=== PATIENT | female | born 1960 | race Caucasian/White ===

== ENCOUNTER 2018-04-28 20:59 | Emergency (ER) | payer OTHER ==
[2018-04-28] MEDS ORDERED: METHYLPREDNISOLONE 125 MG INJ ONE (21:43)
[2018-04-28] MEDS ORDERED: IPRATROPIUM BROM 0.5MG/2.5ML ONE (21:43)
[2018-04-28] MEDS ORDERED: LEVALBUTEROL 1.25 MG/3 ML NEB ONE (21:43)
[2018-04-28 23:14] LABS: Absolute Lymphocytes (CBC) 0.7 K/uL (0.7-4.9); Absolute Monocytes 0.3 K/uL (0.1-1.3); Absolute Neutrophil 2.6 K/uL (1.8-8.0); Basophils % 0.4 % (0-1.3); Eosinophils % 0.7 % (0-4.4); Hematocrit 30.7 % (36.0-45.0); Lymphocytes % 18.1 % (15.3-44.8); MCH 29.7 pg (27.0-35.0); MPV 8.4 fL (7.6-11.3); Monocytes % 7.5 % (3.3-12.3); RBC Red Blood Cell Count 3.34 M/uL (3.86-4.86)
[2018-04-28 23:18] LABS: Protime INR 1.43
[2018-04-28 23:24] LABS: Urine Blood NEGATIVE (NEG); Urine Glucose NEGATIVE (NEG); Urine Protein NEGATIVE (NEG)
[2018-04-28 23:31] LABS: Blood Morphology Comment NOT SEEN (NOT SEEN); Platelet Estimate DECR; Urine White Blood Cell Casts OK
[2018-04-28] MEDS ORDERED: MEPERIDINE HCL 25 MG/0.5 ML ONE (23:36)
[2018-04-28 23:46] LABS: Magnesium 1.6 mg/dL (1.8-2.4)
[2018-04-28 23:48] LABS: Potassium 2.6 mmol/L (3.5-5.1)
--- NOTE | 2018-04-29 00:59 | EDPHYS ---
Physician Documentation [facility] Name: Yuly Briones Age: 57 yrs Sex: Female : 1960 Arrival Date: 04/28/2018 Time: 21:03 Bed 6 Private MD: ED Physician Melchor Ortiz HPI: 04/28 23:34 This 57 yrs old Female presents to ER via EMS with complaints of Shortness Of rn Breath. 23:34 The patient has shortness of breath at rest, with light activity. Onset: The rn symptoms/episode began/occurred today. Duration: The symptoms are continuous. Associated signs and symptoms: Pertinent positives: non-productive cough, fever, Pertinent negatives: hemoptysis. Severity of symptoms: At their worst the symptoms were moderate in the emergency department the symptoms are unchanged. The patient has experienced similar episodes in the past. Historical: - Allergies: 21:21 Ibuprofen; lp1 21:21 thorazine; lp1 21:21 Toradol; lp1 21:21 tramadol; lp1 - Home Meds: 21:21 acetaminophen-codeine 300-30 mg Oral tab 2 tabs every 4-6 hours [Active]; Advair Diskus lp1 250-50 mcg/dose Inhl dsdv 1 puff 2 times per day [Active]; aspirin 81 mg Oral chew 1 tab once daily [Active]; Bentyl 10 mg Oral cap 1 cap 3 times per day [Active]; Cymbalta 60 mg Oral cpDR 1 cap once daily [Active]; Klonopin 1 mg Oral tab 1 tab daily [Active]; lisinopril-hydrochlorothiazide 20-25 mg Oral tab 1 tab once daily [Active]; Nexium 40 mg Oral cpDR 1 cap 2 times per day [Active]; pravastatin 40 mg Oral tab 1 tab once daily [Active]; Premarin 1.25 mg Oral tab 1 tab once daily [Active]; promethazine 25 mg Oral tab 1 tab once daily [Active]; Seroquel 400 mg Oral tab 1 tab once daily [Active]; trazodone 50 mg Oral tab 1 tab 3 times per day [Active]; Wellbutrin 300 mg once daily Oral [Active]; Zanaflex 4 mg Oral cap 1 cap 3 times per day [Active]; - PMHx: 21:21 Asthma; COPD; Emphysema; Hyperlipidemia; Hypertension; lp1 - PSHx: 21:21 CABG; lp1 - Immunization history:: Adult Immunizations up to date. - Social history:: Smoking status: Patient/guardian denies using tobacco, the patient reports quitting approximately 1 years ago. - Ebola Screening: : No symptoms or risks identified at this time. - Family history:: not pertinent. - Hospitalizations: : No recent hospitalization is reported. ROS: 23:34 Constitutional: + fever, no chills Eyes: Negative for injury, pain, redness, and rn plasma center, Neck: Negative for injury, pain, and swelling, Cardiovascular: Negative for chest pain, palpitations, and edema, Respiratory: Negative for pleuritic chest pain, Abdomen/GI: Negative for abdominal pain, nausea, vomiting, diarrhea, and constipation, Back: + chronic back pain MS/Extremity: Negative for injury and deformity, Skin: Negative for injury, rash, and discoloration, Neuro: + generalized weakness Exam: 23:34 Constitutional: This is a well developed, well nourished patient who is awake, alert, rn + mild to moderate tachypnea Head/Face: Normocephalic, atraumatic. Eyes: Pupils equal round and reactive to light, extra-ocular motions intact. Lids and lashes normal. Conjunctiva and sclera are non-icteric and not injected. Cornea within normal limits. Periorbital areas with no swelling, redness, or edema. Neck: Trachea midline, no thyromegaly or masses palpated, and no cervical lymphadenopathy. Supple, full range of motion without nuchal rigidity, or vertebral point tenderness. No Meningismus. Cardiovascular: Regular rate and rhythm with a normal S1 and S2. No gallops, murmurs, or rubs. Normal PMI, no JVD. No pulse deficits. Respiratory: + mild to moderate tachypnea, faint exp wheezing, speaking full sentences Abdomen/GI: Soft, non-tender, with normal bowel sounds. No distension or tympany. No guarding or rebound. No evidence of tenderness throughout. MS/ Extremity: Pulses equal, no cyanosis. Neurovascular intact. Full, normal range of motion. Equal circumference. Neuro: Awake and alert, GCS 15, oriented to person, place, time, and situation. Cranial nerves II-XII grossly intact. Motor strength 5/5 in all extremities. Sensory grossly intact. Vital Signs: 21:00 Pulse Ox 89% on 4 lpm NC; lp1 21:17 BP 115 / 79; Pulse 76; Resp 22; Temp 99.1(O); Pulse Ox 99% on 50% Venturi mask; Weight lp1 63.96 kg; Height 4 ft. 11 in. (149.86 cm); 22:00 BP 110 / 63; Pulse 70; Resp 18; Pulse Ox 98% on 3 lpm NC; lp1 23:00 BP 123 / 72; Pulse 94; Resp 19; Pulse Ox 98% on 3 lpm NC; lp1 04/29 00:00 BP 108 / 65; Pulse 87; Resp 17; Pulse Ox 100% on 3 lpm NC; lp1 01:00 BP 110 / 61; Pulse 75; Resp 18; Pulse Ox 95% on 3 lpm NC; lp1 02:00 BP 100 / 55; Pulse 77; Resp 19; Pulse Ox 99% on 3 lpm NC; lp1 04/28 21:17 Body Mass Index 28.48 (63.96 kg, 149.86 cm) lp1 MDM: 04/28 21:03 Patient medically screened. rn 04/29 00:57 Differential diagnosis: Anxiety Reaction Bronchitis CHF exacerbation, Chronic rn Obstructive Pulmonary Disease Myocardial Infarction pneumonia, Pneumothorax pulmonary edema, reactive airway disease. Data reviewed: vital signs, nurses notes, lab test result(s), EKG, radiologic studies, plain films, and as a result, I will admit patient. Counseling: I had a detailed discussion with the patient and/or guardian regarding: the historical points, exam findings, and any diagnostic results supporting the discharge/admit diagnosis, lab results, radiology results, the need for further work-up and treatment in the hospital. Response to treatment: the patient's symptoms have markedly improved after treatment, and as a result, I will admit patient. ED course: Recommended admission/observation for sob, pt feels much better, states cannot stay, needs to go home, understands risks, will dc home with abx/steroids, has nebulizer at home.. 04/28 21:06 Order name: Blood Culture Adult (2) rn 04/28 21:06 Order name: BMP; Complete Time: 00:08 rn 04/28 21:06 Order name: CBC with Diff; Complete Time: 00:08 rn 04/28 21:06 Order name: Magnesium; Complete Time: 00:08 rn 04/28 21:06 Order name: NT PRO-BNP; Complete Time: 00:08 rn 04/28 21:06 Order name: PT-INR; Complete Time: 00:08 rn 04/28 21:06 Order name: XRAY CXR (1 view) rn 04/28 21:06 Order name: Ptt, Activated; Complete Time: 00:08 rn 04/28 21:06 Order name: Troponin (emerg Dept Use Only); Complete Time: 00:08 rn 04/28 22:50 Order name: Urine Dipstick--Ancillary (enter results); Complete Time: 00:08 ms 04/28 23:31 Order name: CBC Smear Scan; Complete Time: 00:08 EDMS 04/28 21:06 Order name: EKG; Complete Time: 21:06 rn 04/28 21:06 Order name: Cardiac monitoring; Complete Time: 22:05 rn 04/28 21:06 Order name: EKG - Nurse/Tech; Complete Time: 22:31 rn 04/28 21:06 Order name: IV Saline Lock; Complete Time: 23:38 rn 04/28 21:06 Order name: Labs collected and sent; Complete Time: 23:38 rn 04/28 21:06 Order name: O2 Per Protocol; Complete Time: 22:05 rn 04/28 21:06 Order name: O2 Sat Monitoring; Complete Time: 22:05 rn Administered Medications: 04/28 21:45 Drug: Xopenex (3) 1.25 mg Route: Inhalation; lp1 21:45 Drug: AtroVENT Aerosol 0.5 mg Route: Inhalation; lp1 23:30 Drug: SOLU-Medrol 125 mg Route: IVP; Site: left upper arm; lp1 04/29 01:00 Follow up: Response: No adverse reaction lp1 04/28 23:38 Drug: Demerol 25 mg Route: IVP; Site: left upper arm; lp1 04/29 00:33 Follow up: Response: Pain is decreased lp1 01:49 Drug: Zithromax 500 mg Route: PO; aa1 02:33 Follow up: Response: No adverse reaction lp1 01:50 Not Given (Other Intervention Used): Magnesium Sulfate 1 grams IVPB once over 1 hrs aa1 01:50 Not Given (Other Intervention Used): Potassium Chloride 20 mEq IV at calculated rate aa1 once; administer over 1-2 hours 01:51 Drug: Magnesium 400 mg Route: PO; aa1 02:33 Follow up: Response: No adverse reaction lp1 01:51 Drug: Potassium Chloride 40 mEq Route: PO; aa1 02:33 Follow up: Response: No adverse reaction lp1 Disposition: 04/29/18 00:59 Discharged to Home. Impression: Chronic obstructive pulmonary disease with (acute) exacerbation. - Condition is Stable. - Discharge Instructions: Chronic Obstructive Pulmonary Disease. - Prescriptions for Prednisone 20 mg Oral Tablet - take 3 tablet by ORAL route once daily for 5 days; 15 tablet. Zithromax Z- Michael 250 mg Oral Tablet - take 1 tablet by ORAL route as directed for 5 days Day 1 - take two (2) tablets one time. Day 2, 3, 4 , 5 take one (1) tablet once daily.; 6 tablet. - Medication Reconciliation Form, Thank You Letter, Antibiotic Education, Prescription Opioid Use form. - Follow up: Private Physician; When: As needed; Reason: Recheck today's complaints, Re-evaluation by your physician. - Problem is an acute exacerbation. - Symptoms have improved. Signatures: Dispatcher [employer] EDMS Clare Marr RN RN aa1 Melchor Ortiz MD MD rn Pena, Laura, RN RN lp1 Corrections: (The following items were deleted from the chart) 02:34 00:59 04/29/2018 00:59 Discharged to Home. Impression: Chronic obstructive pulmonary lp1 disease with (acute) exacerbation. Condition is Stable. Forms are Medication Reconciliation Form, Thank You Letter, Antibiotic Education, Prescription Opioid Use. Follow up: Private Physician; When: As needed; Reason: Recheck today's complaints, Re-evaluation by your physician. Problem is an acute exacerbation. Symptoms have improved. rn
--- NOTE | 2018-04-29 00:59 | ER ---
Nurse's Notes [facility] Name: Yuly Briones Age: 57 yrs Sex: Female : 1960 Arrival Date: 04/28/2018 Time: 21:03 Bed 6 Private MD: Diagnosis: Chronic obstructive pulmonary disease with (acute) exacerbation Presentation: 04/28 21:14 Presenting complaint: EMS states: Patient has been short of breath since this morning; lp1 Hx of COPD, states using home O2 3-4L as needed; Patient was 90% on 3L on arrival of EMS, Given A/A treatment with improvement of O2 to 99% on 4L NC. Transition of care: patient was not received from another setting of care. Onset of symptoms was April 28, 2018. Risk Assessment: Do you want to hurt yourself or someone else? Patient reports no desire to harm self or others. Initial Sepsis Screen: Does the patient meet any 2 criteria? No. Patient's initial sepsis screen is negative. Does the patient have a suspected source of infection? No. Patient's initial sepsis screen is negative. Care prior to arrival: Medication(s) given: Albuterol Neb x 1, Atrovent Neb x 1, Oxygen administered. via nasal cannula. 21:14 Method Of Arrival: EMS: [facility] lp1 21:14 Acuity: COSTA 3 lp1 Historical: - Allergies: 21:21 Ibuprofen; lp1 21:21 thorazine; lp1 21:21 Toradol; lp1 21:21 tramadol; lp1 - Home Meds: 21:21 acetaminophen-codeine 300-30 mg Oral tab 2 tabs every 4-6 hours [Active]; Advair Diskus lp1 250-50 mcg/dose Inhl dsdv 1 puff 2 times per day [Active]; aspirin 81 mg Oral chew 1 tab once daily [Active]; Bentyl 10 mg Oral cap 1 cap 3 times per day [Active]; Cymbalta 60 mg Oral cpDR 1 cap once daily [Active]; Klonopin 1 mg Oral tab 1 tab daily [Active]; lisinopril-hydrochlorothiazide 20-25 mg Oral tab 1 tab once daily [Active]; Nexium 40 mg Oral cpDR 1 cap 2 times per day [Active]; pravastatin 40 mg Oral tab 1 tab once daily [Active]; Premarin 1.25 mg Oral tab 1 tab once daily [Active]; promethazine 25 mg Oral tab 1 tab once daily [Active]; Seroquel 400 mg Oral tab 1 tab once daily [Active]; trazodone 50 mg Oral tab 1 tab 3 times per day [Active]; Wellbutrin 300 mg once daily Oral [Active]; Zanaflex 4 mg Oral cap 1 cap 3 times per day [Active]; - PMHx: 21:21 Asthma; COPD; Emphysema; Hyperlipidemia; Hypertension; lp1 - PSHx: 21:21 CABG; lp1 - Immunization history:: Adult Immunizations up to date. - Social history:: Smoking status: Patient/guardian denies using tobacco, the patient reports quitting approximately 1 years ago. - Ebola Screening: : No symptoms or risks identified at this time. - Family history:: not pertinent. - Hospitalizations: : No recent hospitalization is reported. Screenin:22 Abuse screen: Denies threats or abuse. Denies injuries from another. Nutritional lp1 screening: No deficits noted. Tuberculosis screening: No symptoms or risk factors identified. Fall Risk Total Bullard Fall Scale indicates High Risk Score (45 or more points). Fall prevention measures have been instituted. Side Rails Up X 2 As available patient and family educated on Fall Prevention Program and Strategies. Assessment: 21:15 Reassessment: [place] [facility] [place] 21:30 General: Appears uncomfortable, Behavior is anxious. Pain: Complains of pain in lp1 buttocks Pain currently is 8 out of 10 on a pain scale. Quality of pain is described as aching. Neuro: Level of Consciousness is awake, alert, obeys commands, Oriented to person, place, situation. Cardiovascular: Capillary refill < 3 seconds in bilateral fingers toes Patient's skin is warm and dry. Respiratory: Airway is patent Respiratory effort is even, labored, Respiratory pattern is regular, Breath sounds with wheezes bilaterally. GI: Abdomen is non-distended. : No signs and/or symptoms were reported regarding the genitourinary system. EENT: No signs and/or symptoms were reported regarding the EENT system. Derm: Skin is fragile, is thin, Skin is dry, Skin is normal, Multiple bruising noted to general body, patient states taking blood thinner. Musculoskeletal: Circulation, motion, and sensation intact. 22:15 Reassessment: Anuja Lee RN at bedside to attempt peripheral IV access. lp1 22:45 Reassessment: Dr. Ortiz at bedside to attempt IV access for patient. lp1 23:30 Reassessment: Patient complaint of pain to general body related to rheumatoid lp1 arthritis, Provider notified. 23:30 Respiratory: Respiratory effort is even, unlabored, Respiratory pattern is regular, the lp1 patient has mild shortness of breath. 04/29 00:30 Reassessment: Patient given sandwich and juice at this time per request. lp1 01:40 Reassessment: Patient appears in no apparent distress at this time. Patient is alert, aa1 oriented x 3, equal unlabored respirations, skin warm/dry/pink. Pt states the time it would take for the IV potassium and magnesium ordered is too long. States, "Oh god, I need to go! My girlfriend is coming to get me from [place] and she has to be at work at 6 in the morning." MD ok'd PO potassium and magnesium in place of IVPB. 02:30 Reassessment: Patient is alert, oriented x 3, equal unlabored respirations, skin lp1 warm/dry/pink. Patient states feeling better. Patient states symptoms have improved. Vital Signs: 04/28 21:00 Pulse Ox 89% on 4 lpm NC; lp1 21:17 BP 115 / 79; Pulse 76; Resp 22; Temp 99.1(O); Pulse Ox 99% on 50% Venturi mask; Weight lp1 63.96 kg; Height 4 ft. 11 in. (149.86 cm); 22:00 BP 110 / 63; Pulse 70; Resp 18; Pulse Ox 98% on 3 lpm NC; lp1 23:00 BP 123 / 72; Pulse 94; Resp 19; Pulse Ox 98% on 3 lpm NC; lp1 04/29 00:00 BP 108 / 65; Pulse 87; Resp 17; Pulse Ox 100% on 3 lpm NC; lp1 01:00 BP 110 / 61; Pulse 75; Resp 18; Pulse Ox 95% on 3 lpm NC; lp1 02:00 BP 100 / 55; Pulse 77; Resp 19; Pulse Ox 99% on 3 lpm NC; lp1 04/28 21:17 Body Mass Index 28.48 (63.96 kg, 149.86 cm) lp1 ED Course: 04/28 21:03 Patient arrived in ED. rn 21:03 Melchor Ortiz MD is Attending Physician. rn 21:13 Michela Lovett RN is Primary Nurse. lp1 21:17 Triage completed. lp1 21:17 Arm band placed on left wrist. lp1 21:22 Patient has correct armband on for positive identification. Placed in gown. Bed in low lp1 position. Call light in reach. Side rails up X2. property assessment monitor on. Pulse ox on. NIBP on. 22:26 Missed attempt(s): 22 gauge in right antecubital area. lp1 23:06 XRAY CXR (1 view) In Process Unspecified. EDMS 23:[address] Ortiz, Twin cath to left upper arm, blood collected. lp1 23:52 Notified ED physician of a critical lab result(s). potassium of 2.6 Dr Ortiz notified. bb 04/29 00:26 No provider procedures requiring assistance completed. lp1 01:55 IV discontinued, intact, bleeding controlled, No redness/swelling at site. Pressure aa1 dressing applied. Administered Medications: 04/28 21:45 Drug: Xopenex (3) 1.25 mg Route: Inhalation; lp1 21:45 Drug: AtroVENT Aerosol 0.5 mg Route: Inhalation; lp1 23:30 Drug: SOLU-Medrol 125 mg Route: IVP; Site: left upper arm; lp1 04/29 01:00 Follow up: Response: No adverse reaction lp1 04/28 23:38 Drug: Demerol 25 mg Route: IVP; Site: left upper arm; lp1 04/29 00:33 Follow up: Response: Pain is decreased lp1 01:49 Drug: Zithromax 500 mg Route: PO; aa1 02:33 Follow up: Response: No adverse reaction lp1 01:50 Not Given (Other Intervention Used): Magnesium Sulfate 1 grams IVPB once over 1 hrs aa1 01:50 Not Given (Other Intervention Used): Potassium Chloride 20 mEq IV at calculated rate aa1 once; administer over 1-2 hours 01:51 Drug: Magnesium 400 mg Route: PO; aa1 02:33 Follow up: Response: No adverse reaction lp1 01:51 Drug: Potassium Chloride 40 mEq Route: PO; aa1 02:33 Follow up: Response: No adverse reaction lp1 Outcome: 00:59 Discharge ordered by . rn 02:33 Discharged to home via wheelchair, with friend. lp1 02:33 Condition: good 02:33 Discharge instructions given to patient, Instructed on discharge instructions, follow up and referral plans. medication usage, Demonstrated understanding of instructions, follow-up care, medications, Prescriptions given X 2. 02:34 Patient left the ED. lp1 Signatures: Dispatcher [employer] EDMS Clare Marr RN RN aa1 Anuja Lee RN BRUNILDA bb Melchor Oritz MD MD rn Pena, Laura, RN RN lp1 Corrections: (The following items were deleted from the chart) 04/28 23:30 23:20 Inserted saline lock: upper arm, using aseptic technique. Blood collected. By Dr. felicia Ortiz lp
[2018-04-29] MEDS ORDERED: Magnesium Sulfate 1gm IVPB 1 GM/50 ML BAG IV ONE (01:19)
[2018-04-29] MEDS ORDERED: KCL 20 MEQ/100 mL IVPB 20 MEQ/100 ML BAG IV ONE (01:19)
[2018-04-29] MEDS ORDERED: AZITHROMYCIN 250 MG TAB ONE (01:45)
[2018-04-29] MEDS ORDERED: POTASSIUM CL SA 10 MEQ TAB PO ONE (01:45)
[2018-04-29] MEDS ORDERED: MAGNESIUM OXIDE 400 MG TAB ONE (01:48)
--- NOTE | 2018-04-29 09:28 | EKG ---
Test Date: 2018-04-28 Test Time: 22:14:30 Metal Bumper: JOSÉ ANTONIO MEASUREMENT RESULTS: Intervals: Rate: 72 OH: 160 QRSD: 84 QT: 476 QTc: 521 [place]: P: 39 OH: 160 QRS: 107 T: 17 INTERPRETIVE STATEMENTS: Normal sinus rhythm Rightward axis Nonspecific T wave abnormality Prolonged QT Abnormal ECG Compared to ECG 02/23/2016 22:51:02 Right-axis deviation now present T-wave abnormality now present Prolonged QT interval now present Myocardial infarct finding no longer present Electronically Signed On 04-29-18 09:27:22 CDT by Lennox Garcia
--- NOTE | 2018-04-29 09:42 | RAD REPORT ---
EXAM DESCRIPTION: Ion Single View04/28/2018 11:06 pm CLINICAL HISTORY: sob COMPARISON: 2016 FINDINGS: Moderate bilateral pulmonary opacities are present. The heart is mildly enlarged. Small b ilateral pleural effusions are present The tube overlies the lower right hemithorax IMPRESSION: Moderate bilateral pulmonary opacities probably represent pulmonary edema
== END 2018-04-29 02:34 | disposition home or self-care (01) ==
LOC: ER 20:59
DX: J44.1 Chronic obstructive pulmonary disease with (acute) exacerbation (principal); I10 Essential (primary) hypertension
CPT/HCPCS: 36415; 71045; 80048; 81003; 83735; 83880; 84484; 85025; 85610; 85730; 87040; 93005; 96374; 96375; 99285; J2175; J2930; J3475

== ENCOUNTER 2018-04-30 17:13 | Inpatient (IN) | payer OTHER ==
--- OUTSIDE RECORDS SUMMARY | 2018-04-30 17:14 | XMS REPORT | Clinical Summary ---
:1960 Author Organization [facility] Address [address] [place] [address] Care Team Providers Name Role Phone Asked, No Pcp Primary Care Provider Unavailable Allergies No Known Allergies Current Medications Prescription Sig. Disp. Refills Start Date End Date Status amIODarone (PACERONE) Take 200 mg by Active 200 MG tablet mouth daily. apixaban (ELIQUIS) 5 mg Take 5 mg by Active tablet mouth 2 (two) times a day. aspirin (ECOTRIN) 81 MG Take 81 mg by Active enteric coated tablet mouth daily. buPROPion XL (WELLBUTRIN Take 300 mg by Active XL) 300 MG 24 hr tablet mouth daily. clonAZEPAM (KlonoPIN) 1 Take 1 mg by Active MG tablet mouth 3 (three) times a day as needed for anxiety. esomeprazole (NexIUM) 40 Take 40 mg by Active MG capsule mouth daily before breakfast. dicyclomine (BENTYL) 10 Take 10 mg by Active MG capsule mouth 4 (four) times a day before meals and nightly. folic acid (FOLVITE) 1 Take 1 mg by Active MG tablet mouth daily. furosemide (LASIX) 40 mg Take 40 mg by Active tablet mouth daily. HYDROcodone-acetaminophe Take 1 tablet by Active n (NORCO) 5-325 mg per mouth every 6 tablet (six) hours as needed for moderate pain. hydroxychloroquine Take 200 mg by Active (PLAQUENIL) 200 mg mouth 2 (two) tablet times a day. metoprolol tartrate Take 12.5 mg by Active (LOPRESSOR) 25 mg tablet mouth 2 (two) times a day. micafungin 100 mg in Infuse 100 mg Active sodium chloride 0.9 % into a venous MBP 100 mL IVPB catheter daily. pravastatin (PRAVACHOL) Take 40 mg by Active 40 MG tablet mouth daily. promethazine (PHENERGAN) Take 25 mg by Active 25 MG tablet mouth every 6 (six) hours as needed for nausea or vomiting. QUEtiapine (SEROquel) Take 100 mg by Active 100 MG tablet mouth nightly. riFAXimin (XIFAXAN) 550 Take 550 mg by Active mg tablet mouth 2 (two) times a day. tiotropium (SPIRIVA) 18 Place 1 capsule Active mcg per inhalation into inhaler and capsule inhale once daily. lactulose 10 gram/15 mL Take 20 g by Active (15 mL) solution mouth 3 (three) times a day. LORAZepam (ATIVAN) 0.5 Take 1 tablet 03/22/2018 MG tablet (0.5 mg total) by 8 mouth 2 (two) times a day for 10 days. ipratropium (ATROVENT) Take 2.5 mL (0.5 75 mL 03/22/2018 0.02 % nebulizer mg total) by 8 solution nebulization every 6 (six) hours for 30 days. lidocaine (LIDODERM) 5 % Place 1 patch on 30 patch 0 03/23/2018 the skin daily 8 for 30 days. Remove & Discard patch within 12 hours or as directed by budivetonide (PULMICORT) Take 2 mL (0.5 mg 120 mL 0 03/22/2018 0.5 mg/2 mL nebulizer total) by 8 solution nebulization 2 (two) times a day for 30 days. [id number] Take 1 capsule by 03/23/2018 ine (FIORINAL) 50-325-40 mouth every 4 8 mg per capsule (four) hours as needed for headaches for up to 5 days. 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 03/15/2018 Hypotension 03/15/2018 CAD (coronary artery disease) 03/15/2018 COPD (chronic obstructive pulmonary disease) 03/15/2018 Acute on chronic respiratory failure with hypercapnia 03/15/2018 Altered mental status 03/14/2018 Electrolyte abnormality 03/14/2018 Hypokalemia 03/14/2018 Anemia 03/14/2018 Hypercarbia 03/14/2018 Encounters Date Type Specialty Care Team Description 03/14/2018 - Hospital Encounter General Internal Jaydon Reyna Altered mental status, unspecified altered mental status type (Primary Dx); 03/23/2018 Mei Saxena MD Acute hypokalemia; Melody Morel; MD Mei Anemia, unspecified type; Hypotension, unspecified hypotension type; Opiates and related narcotics causing adverse effect in therapeutic use , initial encounter; Cirrhosis of liver without ascites, unspecified hepatic cirrhosis type after 04/29/2017 Social History Tobacco Use Types Packs/Day Years Used Date Never Assessed Sex Assigned at Date Recorded Not on file Last Filed Vital Signs Vital Sign Reading Time Taken Blood Pressure 143/65 03/23/2018 5:24 PM CDT Pulse 71 03/23/2018 5:24 PM CDT Temperature 35.6 C (96 F) 03/23/2018 5:24 PM CDT Respiratory Rate 16 03/23/2018 5:24 PM CDT Oxygen Saturation 95% 03/23/2018 5:24 PM CDT Inhaled Oxygen Concentration - - Weight 66 kg (145 lb 8.1 oz) 03/14/2018 9:15 PM CDT Height - - Body Mass Index - - Plan of Treatment Health Maintenance Due Date Last Done Comments CERVICAL CANCER SCREENING 1980 BREAST CANCER SCREENING 2009 SHINGRIX VACCINE (#1) 2009 INFLUENZA VACCINE 05/16/2018 COLON CANCER SCREENING 03/15/2028 03/15/2018 Procedures Procedure Name Priority Date/Time Associated Comments Diagnosis SMEAR REVIEW Routine 03/22/2018 4:00 Results for this AM CDT procedure are in the results section. ESTIMATED GFR Routine 03/22/2018 4:00 Results for this AM CDT procedure are in the results section. HC COMPLETE BLD COUNT Routine 03/22/2018 4:00 Results for this W/AUTO DIFF AM CDT procedure are in the results section. COMPREHENSIVE METABOLIC Routine 03/22/2018 4:00 Results for this PANEL AM CDT procedure are in the results section. SMEAR REVIEW Routine 03/21/2018 9:30 Results for this AM CDT procedure are in the results section. CBC WITH PLATELET AND Routine 03/21/2018 9:30 Results for this DIFFERENTIAL AM CDT procedure are in the results section. ESTIMATED GFR Routine 03/21/2018 4:00 Results for this AM CDT procedure are in the results section. COMPREHENSIVE METABOLIC Routine 03/21/2018 4:00 Results for this PANEL AM CDT procedure are in the results section. ARTERIAL BLOOD GAS Routine 03/20/2018 8:03 Results for this AM CDT procedure are in the results section. SMEAR REVIEW Routine 03/20/2018 6:24 Results for this AM CDT procedure are in the results section. HC COMPLETE BLD COUNT Routine 03/20/2018 6:24 Results for this W/AUTO DIFF AM CDT procedure are in the results section. ESTIMATED GFR Routine 03/20/2018 4:00 Results for this AM CDT procedure are in the results section. COMPREHENSIVE METABOLIC Routine 03/20/2018 4:00 Results for this PANEL AM CDT procedure are in the results section. ARTERIAL BLOOD GAS Routine 03/20/2018 12:41 Results for this AM CDT procedure are in the results section. XR CHEST 1 VW PORTABLE Routine 03/19/2018 9:48 Results for this PM CDT procedure are in the results section. XR ABDOMEN 1 VW Routine 03/19/2018 9:48 Results for this PORTABLE PM CDT procedure are in the results section. ARTERIAL BLOOD GAS STAT 03/19/2018 9:30 Results for this PM CDT procedure are in the results section. LIPASE LEVEL Routine 03/19/2018 10:40 Results for this AM CDT procedure are in the results section. AMYLASE LEVEL Routine 03/19/2018 10:40 Results for this AM CDT procedure are in the results section. SMEAR REVIEW Routine 03/19/2018 4:25 Results for this AM CDT procedure are in the results section. HC COMPLETE BLD COUNT Routine 03/19/2018 4:25 Results for this W/AUTO DIFF AM CDT procedure are in the results section. ESTIMATED GFR Routine 03/19/2018 4:00 Results for this AM CDT procedure are in the results section. COMPREHENSIVE METABOLIC Routine 03/19/2018 4:00 Results for this PANEL AM CDT procedure are in the results section. XR CHEST 1 VW PORTABLE Routine 03/18/2018 6:58 Results for this AM CDT procedure are in the results section. SMEAR REVIEW Routine 03/18/2018 3:10 Results for this AM CDT procedure are in the results section. ESTIMATED GFR Routine 03/18/2018 3:10 Results for this AM CDT procedure are in the results section. PHOSPHORUS LEVEL Routine 03/18/2018 3:10 Results for this AM CDT procedure are in the results section. MAGNESIUM LEVEL Routine 03/18/2018 3:10 Results for this AM CDT procedure are in the results section. COMPREHENSIVE METABOLIC Routine 03/18/2018 3:10 Results for this PANEL AM CDT procedure are in the results section. HC COMPLETE BLD COUNT Routine 03/18/2018 3:10 Results for this W/AUTO DIFF AM CDT procedure are in the results section. CREATINE KINASE, TOTAL Routine 03/17/2018 6:17 Results for this (CPK) PM CDT procedure are in the results section. SMEAR REVIEW Timed 03/17/2018 3:50 Results for this PM CDT procedure are in the results section. HC COMPLETE BLD COUNT Timed 03/17/2018 3:50 Results for this W/AUTO DIFF PM CDT procedure are in the results section. URINE CULTURE Routine 03/17/2018 2:59 Results for this PM CDT procedure are in the results section. URINALYSIS SCREEN AND Routine 03/17/2018 2:56 Results for this MICROSCOPY, WITH REFLEX PM CDT procedure are in TO CULTURE the results section. SMEAR REVIEW Timed 03/17/2018 10:31 Results for this AM CDT procedure are in the results section. HC COMPLETE BLD COUNT Timed 03/17/2018 10:31 Results for this W/AUTO DIFF AM CDT procedure are in the results section. TRANSFUSE RED BLOOD Routine 03/17/2018 8:19 CELLS AM CDT XR CHEST 1 VW PORTABLE Routine 03/17/2018 7:14 Results for this AM CDT procedure are in the results section. SMEAR REVIEW Routine 03/17/2018 3:50 Results for this AM CDT procedure are in the results section. ESTIMATED GFR Routine 03/17/2018 3:50 Results for this AM CDT procedure are in the results section. PHOSPHORUS LEVEL Routine 03/17/2018 3:50 Results for this AM CDT procedure are in the results section. MAGNESIUM LEVEL Routine 03/17/2018 3:50 Results for this AM CDT procedure are in the results section. COMPREHENSIVE METABOLIC Routine 03/17/2018 3:50 Results for this PANEL AM CDT procedure are in the results section. HC COMPLETE BLD COUNT Routine 03/17/2018 3:50 Results for this W/AUTO DIFF AM CDT procedure are in the results section. POC GLUCOSE Routine 03/16/2018 12:42 Results for this PM CDT procedure are in the results section. POC GLUCOSE Routine 03/16/2018 8:36 Results for this AM CDT procedure are in the results section. XR CHEST 1 VW PORTABLE Routine 03/16/2018 7:31 Results for this AM CDT procedure are in the results section. POC GLUCOSE Routine 03/16/2018 4:53 Results for this AM CDT procedure are in the results section. ECG 12-LEAD STAT 03/16/2018 4:44 Results for this AM CDT procedure are in the results section. TROPONIN STAT 03/16/2018 4:35 Results for this AM CDT procedure are in the results section. SMEAR REVIEW Routine 03/16/2018 3:10 Results for this AM CDT procedure are in the results section. ESTIMATED GFR Routine 03/16/2018 3:10 Results for this AM CDT procedure are in the results section. VENOUS BLOOD GAS Routine 03/16/2018 3:10 Results for this AM CDT procedure are in the results section. PHOSPHORUS LEVEL Routine 03/16/2018 3:10 Results for this AM CDT procedure are in the results section. MAGNESIUM LEVEL Routine 03/16/2018 3:10 Results for this AM CDT procedure are in the results section. COMPREHENSIVE METABOLIC Routine 03/16/2018 3:10 Results for this PANEL AM CDT procedure are in the results section. HC COMPLETE BLD COUNT Routine 03/16/2018 3:10 Results for this W/AUTO DIFF AM CDT procedure are in the results section. POC GLUCOSE Routine 03/16/2018 12:27 Results for this AM CDT procedure are in the results section. POC GLUCOSE Routine 03/15/2018 8:51 Results for this PM CDT procedure are in the results section. SMEAR REVIEW Timed 03/15/2018 5:04 Results for this PM CDT procedure are in the results section. HC COMPLETE BLD COUNT Timed 03/15/2018 5:04 Results for this W/AUTO DIFF PM CDT procedure are in the results section. POC GLUCOSE Routine 03/15/2018 4:37 Results for this PM CDT procedure are in the results section. ECHOCARDIOGRAM 2D Routine 03/15/2018 12:46 Results for this COMPLETE W MMODE PM CDT procedure are in SPECTRAL COLOR DOPPLER the results (28278) section. POC GLUCOSE Routine 03/15/2018 12:31 Results for this PM CDT procedure are in the results section. CERULOPLASMIN LEVEL Routine 03/15/2018 10:59 Results for this AM CDT procedure are in the results section. ALPHA-1 ANTITRYPSIN Routine 03/15/2018 10:59 Results for this LEVEL AM CDT procedure are in the results section. FERRITIN LEVEL Routine 03/15/2018 10:59 Results for this AM CDT procedure are in the results section. YIMI TITER Routine 03/15/2018 10:58 Results for this AM CDT procedure are in the results section. HCV QUALITATIVE BY PCR Routine 03/15/2018 10:58 Results for this AM CDT procedure are in the results section. SMEAR REVIEW Timed 03/15/2018 10:58 Results for this AM CDT procedure are in the results section. ANTI SMOOTH MUSCLE AB Routine 03/15/2018 10:58 Results for this SCREEN AM CDT procedure are in the results section. ANTI MITOCHONDRIA Routine 03/15/2018 10:58 Results for this SCREEN AM CDT procedure are in the results section. YIMI Routine 03/15/2018 10:58 Results for this AM CDT procedure are in the results section. HEPATITIS C VIRUS Routine 03/15/2018 10:58 Results for this QUANTITATIVE BY PCR AM CDT procedure are in the results section. HEPATITIS ACUTE PANEL Routine 03/15/2018 10:58 Results for this AM CDT procedure are in the results section. HC COMPLETE BLD COUNT Timed 03/15/2018 10:58 Results for this W/AUTO DIFF AM CDT procedure are in the results section. AMMONIA LEVEL Routine 03/15/2018 10:58 Results for this AM CDT procedure are in the results section. US DUPLEX VENOUS LOWER STAT 03/15/2018 9:30 Results for this EXTREMITY BILATERAL AM CDT procedure are in the results section. POC GLUCOSE Routine 03/15/2018 8:41 Results for this AM CDT procedure are in the results section. XR ABDOMEN 1 VW STAT 03/15/2018 7:05 Results for this PORTABLE AM CDT procedure are in the results section. POC GLUCOSE Routine 03/15/2018 4:42 Results for this AM CDT procedure are in the results section. AMMONIA LEVEL Routine 03/15/2018 4:08 Results for this AM CDT procedure are in the results section. AMYLASE LEVEL Routine 03/15/2018 4:08 Results for this AM CDT procedure are in the results section. LIPASE LEVEL Routine 03/15/2018 4:08 Results for this AM CDT procedure are in the results section. SMEAR REVIEW Routine 03/15/2018 4:08 Results for this AM CDT procedure are in the results section. IONIZED CALCIUM, VENOUS Routine 03/15/2018 4:08 Results for this AM CDT procedure are in the results section. ESTIMATED GFR Routine 03/15/2018 4:08 Results for this AM CDT procedure are in the results section. B NATRIURETIC PEPTIDE Routine 03/15/2018 4:08 Results for this AM CDT procedure are in the results section. TROPONIN Routine 03/15/2018 4:08 Results for this AM CDT procedure are in the results section. PHOSPHORUS LEVEL Routine 03/15/2018 4:08 Results for this AM CDT procedure are in the results section. MAGNESIUM LEVEL Routine 03/15/2018 4:08 Results for this AM CDT procedure are in the results section. PARTIAL THROMBOPLASTIN Routine 03/15/2018 4:08 Results for this TIME (PTT) AM CDT procedure are in the results section. LACTIC ACID LEVEL Routine 03/15/2018 4:08 Results for this AM CDT procedure are in the results section. COMPREHENSIVE METABOLIC Routine 03/15/2018 4:08 Results for this PANEL AM CDT procedure are in the results section. VENOUS BLOOD GAS Routine 03/15/2018 4:08 Results for this AM CDT procedure are in the results section. PROTHROMBIN TIME WITH Routine 03/15/2018 4:08 Results for this INR AM CDT procedure are in the results section. FIBRINOGEN Routine 03/15/2018 4:08 Results for this AM CDT procedure are in the results section. HC COMPLETE BLD COUNT Routine 03/15/2018 4:08 Results for this W/AUTO DIFF AM CDT procedure are in the results section. TRANSFUSE RED BLOOD Routine 03/15/2018 2:55 CELLS AM CDT URINALYSIS SCREEN AND Routine 03/15/2018 1:30 Results for this MICROSCOPY, WITH REFLEX AM CDT procedure are in TO CULTURE the results section. GRAM STAIN Routine 03/15/2018 1:30 Results for this AM CDT procedure are in the results section. URINE CULTURE Routine 03/15/2018 1:30 Results for this AM CDT procedure are in the results section. OCCULT BLOOD, STOOL Routine 03/15/2018 1:30 Results for this AM CDT procedure are in the results section. POC GLUCOSE Routine 03/15/2018 1:24 Results for this AM CDT procedure are in the results section. ESTIMATED GFR STAT 03/14/2018 10:50 Results for this PM CDT procedure are in the results section. TROPONIN STAT 03/14/2018 10:50 Results for this PM CDT procedure are in the results section. CORTISOL LEVEL, RANDOM STAT 03/14/2018 10:50 Results for this PM CDT procedure are in the results section. T4, FREE STAT 03/14/2018 10:50 Results for this PM CDT procedure are in the results section. THYROID STIMULATING STAT 03/14/2018 10:50 Results for this HORMONE PM CDT procedure are in the results section. PHOSPHORUS LEVEL STAT 03/14/2018 10:50 Results for this PM CDT procedure are in the results section. LACTIC ACID LEVEL STAT 03/14/2018 10:50 Results for this PM CDT procedure are in the results section. COMPREHENSIVE METABOLIC STAT 03/14/2018 10:50 Results for this PANEL PM CDT procedure are in the results section. SMEAR REVIEW Routine 03/14/2018 10:10 Results for this PM CDT procedure are in the results section. HC COMPLETE BLD COUNT Routine 03/14/2018 10:10 Results for this W/AUTO DIFF PM CDT procedure are in the results section. FIBRINOGEN STAT 03/14/2018 9:54 Results for this PM CDT procedure are in the results section. PROTHROMBIN TIME WITH STAT 03/14/2018 9:54 Results for this INR PM CDT procedure are in the results section. PARTIAL THROMBOPLASTIN STAT 03/14/2018 9:54 Results for this TIME (PTT) PM CDT procedure are in the results section. CBC WITH PLATELET AND STAT 03/14/2018 9:54 Results for this DIFFERENTIAL PM CDT procedure are in the results section. IONIZED CALCIUM, STAT 03/14/2018 9:35 Results for this ARTERIAL PM CDT procedure are in the results section. ARTERIAL BLOOD GAS STAT 03/14/2018 9:35 Results for this PM CDT procedure are in the results section. CT ABDOMEN PELVIS WO STAT 03/14/2018 9:01 Results for this CONTRAST PM CDT procedure are in the results section. CT HEAD WO CONTRAST STAT 03/14/2018 8:57 Results for this PM CDT procedure are in the results section. ARTERIAL BLOOD GAS STAT 03/14/2018 8:30 Results for this PM CDT procedure are in the results section. US ABDOMINAL DOPPLER STAT 03/14/2018 8:27 Results for this PM CDT procedure are in the results section. US ABDOMEN COMPLETE STAT 03/14/2018 8:25 Results for this PM CDT procedure are in the results section. ALPHA-1 ANTITRYPSIN Routine 03/14/2018 8:16 Results for this PHENOTYPE PM CDT procedure are in the results section. ALPHA FETOPROTEIN Routine 03/14/2018 8:16 Results for this PM CDT procedure are in the results section. LIVER-KIDNEY MICROSOME Routine 03/14/2018 8:16 Results for this AB, IGG PM CDT procedure are in the results section. HEPATITIS C VIRUS Routine 03/14/2018 8:16 Results for this QUANTITATIVE BY PCR PM CDT procedure are in the results section. LACTIC ACID LEVEL, Timed 03/14/2018 7:18 Results for this SEPSIS - NOW AND REPEAT PM CDT procedure are in 2X EVERY 3 HOURS the results section. POC GLUCOSE Routine 03/14/2018 6:45 Results for this PM CDT procedure are in the results section. URINE DRUGS OF ABUSE STAT 03/14/2018 5:30 Results for this SCREEN PM CDT procedure are in the results section. ECG ED PRELIMINARY Routine 03/14/2018 5:24 Results for this INTERPRETATION PM CDT procedure are in the results section. NV CRITICAL CARE, E/M Routine 03/14/2018 5:24 Results for this 30-74 MINUTES PM CDT procedure are in the results section. URINE CULTURE Routine 03/14/2018 5:05 Results for this PM CDT procedure are in the results section. URINALYSIS SCREEN AND Routine 03/14/2018 4:52 Results for this MICROSCOPY, WITH REFLEX PM CDT procedure are in TO CULTURE the results section. XR CHEST 1 VW PORTABLE STAT 03/14/2018 4:40 Results for this PM CDT procedure are in the results section. AMMONIA LEVEL Routine 03/14/2018 4:16 Results for this PM CDT procedure are in the results section. TOTAL IRON BINDING STAT 03/14/2018 4:01 Results for this CAPACITY PM CDT procedure are in the results section. ALPHA-1 ANTITRYPSIN STAT 03/14/2018 4:01 Results for this LEVEL PM CDT procedure are in the results section. HEMOGLOBIN A1C STAT 03/14/2018 4:01 Results for this PM CDT procedure are in the results section. FERRITIN LEVEL STAT 03/14/2018 4:01 Results for this PM CDT procedure are in the results section. CERULOPLASMIN LEVEL STAT 03/14/2018 4:01 Results for this PM CDT procedure are in the results section. ALCOHOL LEVEL, BLOOD STAT 03/14/2018 4:01 Results for this PM CDT procedure are in the results section. SMEAR REVIEW STAT 03/14/2018 4:01 Results for this PM CDT procedure are in the results section. AMMONIA LEVEL STAT 03/14/2018 4:01 Results for this PM CDT procedure are in the results section. VENOUS BLOOD GAS STAT 03/14/2018 4:01 Results for this PM CDT procedure are in the results section. ESTIMATED GFR STAT 03/14/2018 4:01 Results for this PM CDT procedure are in the results section. LACTIC ACID LEVEL, STAT 03/14/2018 4:01 Results for this SEPSIS - NOW AND REPEAT PM CDT procedure are in 2X EVERY 3 HOURS the results section. COMPREHENSIVE METABOLIC STAT 03/14/2018 4:01 Results for this PANEL PM CDT procedure are in the results section. PARTIAL THROMBOPLASTIN STAT 03/14/2018 4:01 Results for this TIME (PTT) PM CDT procedure are in the results section. PROTHROMBIN TIME WITH STAT 03/14/2018 4:01 Results for this INR PM CDT procedure are in the results section. HC COMPLETE BLD COUNT STAT 03/14/2018 4:01 Results for this W/AUTO DIFF PM CDT procedure are in the results section. PREPARE RBC Timed 03/14/2018 4:00 Results for this PM CDT procedure are in the results section. PREPARE RBC Timed 03/14/2018 4:00 Results for this PM CDT procedure are in the results section. TYPE AND SCREEN Timed 03/14/2018 4:00 Results for this PM CDT procedure are in the results section. BLOOD CULTURE, AEROBIC Routine 03/14/2018 4:00 Results for this & ANAEROBIC PM CDT procedure are in the results section. BLOOD CULTURE, AEROBIC Routine 03/14/2018 3:55 Results for this & ANAEROBIC PM CDT procedure are in the results section. POC GLUCOSE Routine 03/14/2018 3:45 Results for this PM CDT procedure are in the results section. ECG 12-LEAD STAT 03/14/2018 3:26 Results for this PM CDT procedure are in the results section. after 04/29/2017 Results Smear review (03/22/2018 4:00 AM)Only the most recent of14 resultswithin the time period is included. Platelet slide review Decreased (A) [facility] DEPARTMENT OF PATHOLOGY AND GENOMIC MEDICINE Anisocytosis Moderate [facility] DEPARTMENT OF PATHOLOGY AND GENOMIC MEDICINE Polychromasia Moderate [facility] DEPARTMENT OF PATHOLOGY AND GENOMIC MEDICINE Basophilic stippling Occasional [facility] DEPARTMENT OF PATHOLOGY AND GENOMIC MEDICINE Tear drop cells Occasional [facility] DEPARTMENT OF PATHOLOGY AND GENOMIC MEDICINE Ovalocytes Moderate [facility] DEPARTMENT OF PATHOLOGY AND GENOMIC MEDICINE Performing Organization Address [facility] Phone Number [facility] DEPARTMENT OF PATHOLOGY AND [address] [place] [address] [employer] [facility] Estimated GFR (03/22/2018 4:00 AM)Only the most recent of10 resultswithin the time period is included. GFR Non Af Amer 64 mL/min/1.73 m2 [facility] DEPARTMENT OF PATHOLOGY AND GENOMIC MEDICINE GFR Af Amer 78 mL/min/1.73 m2 [facility] DEPARTMENT OF Comment: PATHOLOGY AND GENOMIC Chronic kidney disease: <60 mL/min/1.73m2 MEDICINE Kidney failure: <15 mL/min/1.73m2 The estimated GFR is calculated from the IDMS-traceable Modification of Diet in Renal Disease Equation. The accuracy of the calculation is poor when the creatinine is normal. Calculated values >90 mL/min/1.73m2 are not reported. This equation has not been validated in children (<18 years), women, the elderly (>70 years), or ethnic groups other than Caucasians and Americans. Specimen Plasma specimen Performing Organization Address [facility] Phone Number [facility] PATHOLOGY AND [address] [place], [place] [id number] [employer] [facility] CBC with platelet and differential (03/22/2018 4:00 AM)Only the most recent of15 resultswithin the time period is included. WBC 2.69 (L) 4.50 - 11.00 k/uL [facility] DEPARTMENT OF PATHOLOGY AND GENOMIC MEDICINE RBC 2.28 (L) 4.20 - 5.50 m/uL [facility] DEPARTMENT OF PATHOLOGY AND GENOMIC MEDICINE HGB 7.2 (L) 12.0 - 16.0 g/dL [facility] DEPARTMENT OF PATHOLOGY AND GENOMIC MEDICINE HCT 24.3 (L) 37.0 - 47.0 % [facility] DEPARTMENT OF PATHOLOGY AND GENOMIC MEDICINE MCV 106.6 (H) 82.0 - 100.0 fL [facility] DEPARTMENT OF PATHOLOGY AND GENOMIC MEDICINE MCH 31.6 27.0 - 34.0 pg [facility] DEPARTMENT OF PATHOLOGY AND GENOMIC MEDICINE MCHC 29.6 (L) 31.0 - 37.0 g/dL [facility] DEPARTMENT OF PATHOLOGY AND GENOMIC MEDICINE RDW - SD 85.2 (H) 37.0 - 55.0 fL [facility] DEPARTMENT OF PATHOLOGY AND GENOMIC MEDICINE MPV 10.0 8.8 - 13.2 fL [facility] DEPARTMENT OF PATHOLOGY AND GENOMIC MEDICINE Platelet count 92 (L) 150 - 400 k/uL [facility] DEPARTMENT OF PATHOLOGY AND GENOMIC MEDICINE Nucleated RBC 0.00 /100 WBC [facility] DEPARTMENT OF PATHOLOGY AND GENOMIC MEDICINE Neutrophils 62.2 39.0 - 69.0 % [facility] DEPARTMENT OF PATHOLOGY AND GENOMIC MEDICINE Lymphocytes 23.0 (L) 25.0 - 45.0 % [facility] DEPARTMENT OF PATHOLOGY AND GENOMIC MEDICINE Monocytes 10.4 (H) 0.0 - 10.0 % [facility] DEPARTMENT OF PATHOLOGY AND GENOMIC MEDICINE Eosinophils 3.3 0.0 - 5.0 % [facility] DEPARTMENT OF PATHOLOGY AND GENOMIC MEDICINE Basophils 0.7 0.0 - 1.0 % [facility] DEPARTMENT OF PATHOLOGY AND GENOMIC MEDICINE Immature granulocytes 0.4Comment: 0.0 - 1.0 % [facility] DEPARTMENT OF "Immature PATHOLOGY AND GENOMIC granulocytes" MEDICINE (promyelocytes, myelocytes, metamyelocytes) Specimen Blood Performing Organization Address City/State/Zipcode Phone Number [facility] DEPARTMENT OF PATHOLOGY [facility] [place] [address] GENOMIC MEDICINE Comprehensive metabolic panel (03/22/2018 4:00 AM)Only the most recent of10 resultswithin the time period is included. Sodium 132 (L) 135 - 148 mEq/L [facility] DEPARTMENT OF PATHOLOGY AND GENOMIC MEDICINE Potassium 3.6 3.5 - 5.0 mEq/L [facility] DEPARTMENT OF PATHOLOGY AND GENOMIC MEDICINE Chloride 91 (L) 98 - 112 mEq/L [facility] DEPARTMENT OF PATHOLOGY AND GENOMIC MEDICINE CO2 32 (H) 24 - 31 mEq/L [facility] DEPARTMENT OF PATHOLOGY AND GENOMIC MEDICINE Anion gap 9@ANIO 7 - 15 mEq/L [facility] DEPARTMENT OF PATHOLOGY AND GENOMIC MEDICINE BUN 14 6 - 20 mg/dL [facility] DEPARTMENT OF PATHOLOGY AND GENOMIC MEDICINE Creatinine 0.9 0.5 - 0.9 mg/dL [facility] DEPARTMENT OF PATHOLOGY AND GENOMIC MEDICINE Glucose 101 (H) 65 - 99 mg/dL [facility] DEPARTMENT OF PATHOLOGY AND GENOMIC MEDICINE Calcium 8.5 8.3 - 10.2 mg/dL [facility] DEPARTMENT OF PATHOLOGY AND GENOMIC MEDICINE Protein 7.2 6.3 - 8.3 g/dL [facility] DEPARTMENT OF Comment: PATHOLOGY AND GENOMIC [place] 4.6-7.0 g/dL MEDICINE 1 week 4.4-7.6 g/dL 7 months-1year5.1-7.3 g/dL 1-2 years5.6-7.5 g/dL >3 years6.0-8.0 g/dL 18-150 6.3-8.3 g/dL Albumin 2.3 (L) 3.5 - 5.0 g/dL [facility] DEPARTMENT OF PATHOLOGY AND GENOMIC MEDICINE A/G ratio 0.5 (L) 0.7 - 3.8 [facility] DEPARTMENT OF PATHOLOGY AND GENOMIC MEDICINE Alkaline phosphatase 104 35 - 104 U/L [facility] DEPARTMENT OF PATHOLOGY AND GENOMIC MEDICINE AST 24 10 - 35 U/L [facility] DEPARTMENT OF PATHOLOGY AND GENOMIC MEDICINE ALT 10 5 - 50 U/L [facility] DEPARTMENT OF PATHOLOGY AND GENOMIC MEDICINE Total bilirubin 1.1 0.0 - 1.2 mg/dL [facility] DEPARTMENT OF PATHOLOGY AND GENOMIC MEDICINE Specimen Plasma specimen Performing Organization Address City/[facility] Phone Number [facility] DEPARTMENT PATHOLOGY AND [address] [place] [address] [facility] Arterial blood gas (03/20/2018 8:03 AM)Only the most recent of5 resultswithin the time period is included. pH, arterial 7.38 7.35 - 7.45 [facility] DEPARTMENT OF PATHOLOGY AND GENOMIC MEDICINE pCO2, arterial 51 (H) 35 - 45 mmHg [facility] DEPARTMENT OF PATHOLOGY AND GENOMIC MEDICINE pO2, arterial 83 80 - 90 mmHg [facility] DEPARTMENT OF PATHOLOGY AND GENOMIC MEDICINE Bicarbonate, arterial 29.4 (H) 21.0 - 28.0 mmol/L [facility] DEPARTMENT OF PATHOLOGY AND GENOMIC MEDICINE Base excess, arterial 4 (H) -2 - 2 mEq/L [facility] DEPARTMENT OF PATHOLOGY AND GENOMIC MEDICINE O2 saturation, arterial 98 95 - 100 % [facility] DEPARTMENT OF PATHOLOGY AND GENOMIC MEDICINE Specimen Blood Performing Organization Address City/[facility] Phone Number [facility] PATHOLOGY AND [address] [place] [phone] [facility] XR Chest 1 Vw Portable (03/19/2018 9:48 PM)Only the most recent of5 resultswithin the time period is included. Narrative Performed At EXAMINATION:XR CHEST 1 VW PORTABLE [facility] CLINICAL HISTORY:SHORTNESS OF BREATH IMPRESSION: Follow-up exam demonstrates congestive changes and small effusions to be stable. There is no new infiltrate. [facility]-[id number] Procedure Note Interface, Radiology Results Incoming - 03/19/2018 10:21 PM CDT EXAMINATION: XR CHEST 1 VW PORTABLE CLINICAL HISTORY: SHORTNESS OF BREATH IMPRESSION: Follow-up exam demonstrates congestive changes and small effusions to be stable. There is no new infiltrate. [facility]-[id number] Performing Organization Address [facility] Phone Number [employer] [address] [place] [address] XR Abdomen 1 Vw Portable (03/19/2018 9:48 PM)Only the most recent of2 resultswithin the time period is included. Narrative Performed At PROCEDURE:XR ABDOMEN 1 VW PORTABLE [facility] CLINICAL HISTORY:ABDOMINAL PAIN COMPARISON:March 15, 2018 TECHNIQUE: A single view of the abdomen was performed in the AP supine projection. FINDINGS: No indirect evidence of free air is seen.. No distended loops of small or large bowel are identified. No radiopaque calculus is identified in the abdomen. The patient is had a hernia repair in the right lower quadrant of the abdomen. Note is made of the bibasilar pleural effusions. IMPRESSION: Abnormal study. Bibasilar pleural effusions. Nonspecific bowel gas pattern. [facility]-[id number] . Procedure Note Interface, Radiology Results Incoming - 03/19/2018 10:13 PM CDT PROCEDURE: XR ABDOMEN 1 VW PORTABLE CLINICAL HISTORY: ABDOMINAL PAIN COMPARISON: March 15, 2018 TECHNIQUE: A single view of the abdomen was performed in the AP supine projection. FINDINGS: No indirect evidence of free air is seen.. No distended loops of small or large bowel are identified. No radiopaque calculus is identified in the abdomen. The patient is had a hernia repair in the right lower quadrant of the abdomen. Note is made of the bibasilar pleural effusions. IMPRESSION: Abnormal study. Bibasilar pleural effusions. Nonspecific bowel gas pattern. [facility]-[id number] . Performing Organization Address [facility] Phone Number [employer] [address] [place] [address] Lipase level (03/19/2018 10:40 AM)Only the most recent of2 resultswithin the time period is included. Lipase 22 13 - 60 U/L [facility] DEPARTMENT OF PATHOLOGY AND GENOMIC MEDICINE Specimen Plasma specimen Performing Organization Address [facility] Phone Number [facility] DEPARTMENT OF PATHOLOGY AND [address] [place] [address] GENOMIC [facility] Amylase level (03/19/2018 10:40 AM)Only the most recent of2 resultswithin the time period is included. Amylase 32 28 - 100 U/L [facility] DEPARTMENT OF PATHOLOGY AND GENOMIC MEDICINE Specimen Plasma specimen Performing Organization Address [facility] Phone Number [facility] DEPARTMENT OF PATHOLOGY AND [address] [place] [address] GENOMIC MEDICINE Phosphorus level (03/18/2018 3:10 AM)Only the most recent of5 resultswithin the time period is included. Phosphorus 3.4 2.4 - 4.5 mg/dL [facility] DEPARTMENT OF PATHOLOGY AND GENOMIC MEDICINE Specimen Plasma specimen Performing Organization Address [facility] Number [facility] DEPARTMENT OF PATHOLOGY AND [address] [place] [address] GENOMIC [facility] Magnesium level (03/18/2018 3:10 AM)Only the most recent of4 resultswithin the time period is included. Magnesium 1.7 1.6 - 2.6 mg/dL [facility] DEPARTMENT OF PATHOLOGY AND GENOMIC MEDICINE Specimen Plasma specimen Performing Organization Address [facility] Number [facility] DEPARTMENT OF PATHOLOGY AND [address] [place] [address] GENOMIC MEDICINE Creatine kinase, total (CPK) (03/17/2018 6:17 PM) Creatine kinase 18 (L) 26 - 192 U/L [facility] DEPARTMENT OF PATHOLOGY AND GENOMIC MEDICINE Specimen Plasma specimen Performing Organization Address [facility] Phone Number [facility] DEPARTMENT OF PATHOLOGY AND [address] [place] [address] GENOMIC MEDICINE Urine culture (03/17/2018 2:59 PM)Only the most recent of3 resultswithin the time period is included. Urine culture SEE COMMENTComment: Bacteriuria [facility] DEPARTMENT OF PATHOLOGY screen negative. AND GENOMIC MEDICINE Performing Organization Address [facility] Phone Number [facility] DEPARTMENT OF PATHOLOGY AND [address] [place] [address] [facility] Urinalysis screen and microscopy, with reflex to culture (03/17/2018 2:56 PM) Only the most recent of3 resultswithin the time period is included. Specimen site Clean catch [facility] DEPARTMENT OF PATHOLOGY AND GENOMIC MEDICINE Color, UA Isela [facility] DEPARTMENT OF PATHOLOGY AND GENOMIC MEDICINE Appearance, UA Hazy [facility] DEPARTMENT OF PATHOLOGY AND GENOMIC MEDICINE Specific gravity, UA 1.026 1.001 - 1.035 [facility] DEPARTMENT OF PATHOLOGY AND GENOMIC MEDICINE pH, UA 6.0 5.0 - 8.5 [facility] DEPARTMENT OF PATHOLOGY AND GENOMIC MEDICINE Protein, UA 1+ (A) Negative [facility] DEPARTMENT OF PATHOLOGY AND GENOMIC MEDICINE Glucose, UA 1+ (A) Negative [facility] DEPARTMENT OF PATHOLOGY AND GENOMIC MEDICINE Ketones, UA Trace (A) Negative [facility] DEPARTMENT OF PATHOLOGY AND GENOMIC MEDICINE Bilirubin, UA Negative Negative [facility] DEPARTMENT OF PATHOLOGY AND GENOMIC MEDICINE Blood, UA Negative Negative [facility] DEPARTMENT OF PATHOLOGY AND GENOMIC MEDICINE Nitrite, UA Negative Negative [facility] DEPARTMENT OF PATHOLOGY AND GENOMIC MEDICINE Urobilinogen, UA 2.0 (A) <2.0 [facility] DEPARTMENT OF PATHOLOGY AND GENOMIC MEDICINE Leukocyte esterase, UA Negative Negative [facility] DEPARTMENT OF PATHOLOGY AND GENOMIC MEDICINE WBC, UA <1 0 - 4 /HPF [facility] DEPARTMENT OF PATHOLOGY AND GENOMIC MEDICINE RBC, UA 1 0 - 5 /HPF [facility] DEPARTMENT OF PATHOLOGY AND GENOMIC MEDICINE Bacteria, UA Few None seen [facility] DEPARTMENT OF PATHOLOGY AND GENOMIC MEDICINE Yeast, UA None seen [facility] DEPARTMENT OF PATHOLOGY AND GENOMIC MEDICINE Yeast with pseudohyphae, UA None seen [facility] DEPARTMENT OF PATHOLOGY AND GENOMIC MEDICINE Granular casts, UA 8 (H) 0 - 1 /LPF [facility] DEPARTMENT OF PATHOLOGY AND GENOMIC MEDICINE Hyaline casts, UA >20 (A) /LPF [facility] DEPARTMENT OF PATHOLOGY AND GENOMIC MEDICINE Specimen Urine Performing Organization Address City/State/Zipcode Phone Number [facility] DEPARTMENT OF PATHOLOGY AND [address] [place] [address] [facility] Transfuse RBC (03/17/2018 8:19 AM)Only the most recent of4 resultswithin the time period is included.POC glucose (03/16/2018 12:42 PM)Only the most recent of12 resultswithin the time period is included. POC glucose 103 (H) 65 - 99 mg/dL [facility] DEPARTMENT OF PATHOLOGY AND Comment: GENOMIC MEDICINE [facility] Notified RN Meter ID: [id number] Job Printer Apprentice: Joesph Trujillo Performing Organization Address [facility] Centercode Phone Number [facility] DEPARTMENT OF PATHOLOGY AND [address] [place] [address] [employer] [facility] ECG 12 lead (03/16/2018 4:44 AM)Only the most recent of2 resultswithin the time period is included. Ventricular rate 86 [facility] MUSE Atrial rate 86 [facility] MUSE NV interval 178 [facility] MUSE QRSD interval 92 [facility] MUSE QT interval 410 [facility] MUSE QTC interval 490 [facility] MUSE P axis 1 36 [facility] MUSE QRS axis 1 56 [facility] MUSE T wave axis 35 [facility] MUSE EKG impression Normal sinus rhythm- - Performing Organization Address [facility] Phone Number [facility] MUSE [address] [place] [address] Troponin (03/16/2018 4:35 AM)Only the most recent of3 resultswithin the time period is included. Troponin <0.30 0.00 - 0.30 ng/mL [facility] DEPARTMENT OF PATHOLOGY Comment: AND GENOMIC MEDICINE 0.30 - 1.49 ng/mlMay indicate increased risk of acute coronary syndrome. >=1.5 ng/mlConsistent with acute myocardial infarction. The diagnostic value of a single normal or non-diagnostic result is questionable.Serial samples at 2-6 hour intervals are required to rule out acute myocardial injury. Specimen Plasma specimen Performing Organization Address [facility] Cent[facility]ode Phone Number [facility] DEPARTMENT OF PATHOLOGY AND [address] [place] [address] Venous blood gas (03/16/2018 3:10 AM)Only the most recent of3 resultswithin the time period is included. pH, venous 7.37 7.32 - 7.42 [facility] DEPARTMENT OF PATHOLOGY AND GENOMIC MEDICINE pCO2, venous 59 (H) 45 - 51 mmHg [facility] DEPARTMENT OF PATHOLOGY AND GENOMIC MEDICINE pO2, venous 39 25 - 40 mmHg [facility] DEPARTMENT OF PATHOLOGY AND GENOMIC MEDICINE Base excess, venous 7 (H) -2 - 2 meq/L [facility] DEPARTMENT OF PATHOLOGY AND GENOMIC MEDICINE O2 saturation, venous 71 (H) 40 - 70 % [facility] DEPARTMENT OF PATHOLOGY AND GENOMIC MEDICINE Bicarbonate, venous 32.7 (H) 21.0 - 28.0 mmol/L [facility] DEPARTMENT OF PATHOLOGY AND GENOMIC MEDICINE Specimen Blood Performing Organization Address City/State/Zipcode Phone Number [facility] DEPARTMENT OF PATHOLOGY AND [address] [place] [address] GENOMIC MEDICINE Echocardiogram complete w contrast and 3D if needed (03/15/2018 12:46 PM) Narrative Performed At [facility] Echocardiography Report [address], [address], [place] [address] Pat.Name:Jimmie BRIONES.ID:[id number] .Date: 03/15/2018 Refer.MD:MELODY MOREL MD Exam Time: 10:14:00 AM Study Type:Routine Echo Height:66inWeight: 145lb BSA: 1.75 m2 DOBAge:1960,57Y Sex: FEMALEBP:148/69 HR:76 bpmSonogrphr: TANGELA Rodriguez Pat. Stat.:Inpatient Room:[place] [address] Study Status:Final Echo Event ID:[id number] Order ID:[id number] Reason for Study:Recent CABG, H/O CHF and pericardial effusion Procedures:2D Echo, Colorflow Doppler Race:C SUMMARY: LV EF is normal. LA volume is moderately enlarged. Mitral regurgitation present but unable to assess severity, suspect at least moderate regurgitation. Moderate tricuspid regurgitation LV filling pressure is elevated. Estimated PA systolic pressure is 55-60 mmHg, assuming a mean RAP of 5-10 mmHg. Consider SOUTH or CMR to better assess MR severity. FINDINGS: LV: LV size is normal. LV EF is normal. Overall wall motion is normal.Estimated EF is 65-69% RV: RV size is normal. RV systolic function is normal. LA: LA volume is moderately enlarged. RA: RA size is normal. AO: Aortic root diameter is normal. MADELIN: No pericardial effusion. AV: No structural AV abnormalities noted. MV: Moderate mitral annular calcification. Eccentric mitral regurgitantjet directed posteriorly and laterally. Mitral regurgitationpresent but unable to assess severity, suspectat least moderate regurgitation. Estimated mean mitralvalve gradient 5 mmHg at a heart rate of 80 b/min. PV: No structural PV abnormalities noted. Mild pulmonic regurgitation. TV: No structural TV abnormalities noted. Moderate tricuspid regurgitation Najera: LV filling pressure is elevated. Other:Estimated PA systolic pressure is 55-60 mmHg, assuming a meanRAP of 5-10 mmHg. MEASUREMENTS: 2D Parasternal Long Tucker LVIDd3.8 cmIndex2.2 cm/m Ao Rtd 2.5 cm Index1.4 cm/m LVIDs2.4 cmLV Mass 93.4 g(87-129) LV%fs 36.8 % LVM Index 53.4 g/m2 IVSd 0.9 cmRWT0.4 LVPWd0.8 cmLVOT 1.6 cm LA Ds4.3 cm LA Sng Plane LA Area 25.1 cm2(8.8-23.4) LA Vol80.1 ml Index45.8 ml/m LA LngAx 6.2 cm RA Sng Plane RA Area 15.6 cm2(8.3-19.5) RA Vol40.6 ml Index23.2 ml/m RA LngAx 4.6 cm DOPPLER MV For Flow/Valve Assess MV pkVel 174.8 cm/sMV Dec T 245 msec MV pkPG 12.2 mmHgMV TVI37.8 cm MV Mean G5.1 mmHg Signed 03/15/2018 04:08 PM Juan Carlos Hughes M.D. Procedure Note Interface, Radiology Results In - 03/15/2018 4:08 PM CDT Echocardiography Report [id number] [address] Pat.Name: YULY BRIONES Pat.ID: [id number] .Date: 03/15/2018 Refer.MD: MELODY MOREL MD Exam Time: 10:14:00 AM Study Type:Routine Echo Height: 66in Weight: 145lb BSA: 1.75 m2 Age: 11 1960,57Y Sex: FEMALE BP: 148/69 HR: 76 bpm Sonogrphr: TANGELA Rodriguez Pat. Stat.:Inpatient Room: [place] [address] Study Status:Final Echo Event ID:[id number] Order ID: [id number] Reason for Study:Recent CABG, H/O CHF and pericardial effusion Procedures:2D Echo, Colorflow Doppler Race: C SUMMARY: LV EF is normal. LA volume is moderately enlarged. Mitral regurgitation present but unable to assess severity, suspect at least moderate regurgitation. Moderate tricuspid regurgitation LV filling pressure is elevated. Estimated PA systolic pressure is 55-60 mmHg, assuming a mean RAP of 5-10 mmHg. Consider SOUTH or CMR to better assess MR severity. FINDINGS: LV: LV size is normal. LV EF is normal. Overall wall motion is normal. Estimated EF is 65-69% RV: RV size is normal. RV systolic function is normal. LA: LA volume is moderately enlarged. RA: RA size is normal. AO: Aortic root diameter is normal. MADELIN: No pericardial effusion. AV: No structural AV abnormalities noted. MV: Moderate mitral annular calcification. Eccentric mitral regurgitant jet directed posteriorly and laterally. Mitral regurgitation present but unable to assess severity, suspect at least moderate regurgitation. Estimated mean mitral valve gradient 5 mmHg at a heart rate of 80 b/min. PV: No structural PV abnormalities noted. Mild pulmonic regurgitation. TV: No structural TV abnormalities noted. Moderate tricuspid regurgitation Najera: LV filling pressure is elevated. Other: Estimated PA systolic pressure is 55-60 mmHg, assuming a mean RAP of 5-10 mmHg. MEASUREMENTS: 2D Parasternal Long Tucker LVIDd 3.8 cm Index 2.2 cm/m Ao Rtd 2.5 cm Index 1.4 cm/m LVIDs 2.4 cm LV Mass 93.4 g (87-129) LV%fs 36.8 % LVM Index 53.4 g/m2 IVSd 0.9 cm RWT 0.4 LVPWd 0.8 cm LVOT 1.6 cm LA Ds 4.3 cm LA Sng Plane LA Area 25.1 cm2 (8.8-23.4) LA Vol 80.1 ml Index 45.8 ml/m LA LngAx 6.2 cm RA Sng Plane RA Area 15.6 cm2 (8.3-19.5) RA Vol 40.6 ml Index 23.2 ml/m RA LngAx 4.6 cm DOPPLER MV For Flow/Valve Assess MV pkVel 174.8 cm/s MV Dec T 245 msec MV pkPG 12.2 mmHg MV TVI 37.8 cm MV Mean G 5.1 mmHg Signed 03/15/2018 04:08 PM Juan Carlos Hughes M.D. Performing Organization Address City/[facility]/Zipcode Phone Number [facility] [address] [place] [address] Alpha-1 antitrypsin level (03/15/2018 10:59 AM)Only the most recent of2 resultswithin the time period is included. Alpha-1 antitrypsin 203 (H) 90 - 200 mg/dL [facility] DEPARTMENT OF PATHOLOGY AND [employer] MEDICINE Specimen Plasma specimen Performing Organization Address City/[facility]/Zipcode Phone Number [facility] DEPARTMENT OF PATHOLOGY AND [address] Ceruloplasmin level (03/15/2018 10:59 AM)Only the most recent of2 resultswithin the time period is included. Ceruloplasmin 31 16 - 45 mg/dL [facility] DEPARTMENT OF PATHOLOGY AND GENOMIC MEDICINE Specimen Plasma specimen Performing Organization Address City/[facility] Phone Number [facility] DEPARTMENT OF PATHOLOGY AND [address] [place] [address] Ferritin level (03/15/2018 10:59 AM)Only the most recent of2 resultswithin the time period is included. Ferritin level 260 (H) 13 - 150 ng/mL [facility] DEPARTMENT OF PATHOLOGY AND GENOMIC MEDICINE Specimen Plasma specimen Performing Organization Address [facility] Centercode Phone Number [facility] DEPARTMENT OF PATHOLOGY AND [address] [place] [address] HCV qualitative by PCR (03/15/2018 10:58 AM) HCV PCR result Detected (A) Not-Detected [facility] DEPARTMENT OF PATHOLOGY AND GENOMIC MEDICINE HCV RNA qualitative See link below for PDF [facility] DEPARTMENT OF PATHOLOGY Lab ReportComment: Case AND GENOMIC MEDICINE Number: [id number] Specimen Serum Performing Organization Address [facility] Phone Number [facility] DEPARTMENT OF PATHOLOGY AND [address] [place] [address] Anti smooth muscle Ab screen (03/15/2018 10:58 AM) Anti smooth muscle Ab screen Not Detected Not-Detected [facility] DEPARTMENT OF PATHOLOGY AND GENOMIC MEDICINE Specimen Blood Performing Organization Address [facility] Cent[facility] Phone Number [facility] DEPARTMENT OF PATHOLOGY AND [address] [place] [address] YIMI titer (03/15/2018 10:58 AM) YIMI titer 1:160 (A) Not-Detected [facility] DEPARTMENT OF PATHOLOGY AND GENOMIC MEDICINE YIMI titer 1 1:160 (A) Not-Detected [facility] DEPARTMENT OF PATHOLOGY AND GENOMIC MEDICINE YIMI pattern Nucleolar (A) Not-Detected [facility] DEPARTMENT OF PATHOLOGY AND GENOMIC MEDICINE Specimen Blood Performing Organization Address [facility] Phone Number [facility] DEPARTMENT OF PATHOLOGY AND [address] [place] [address] Anti mitochondria screen (03/15/2018 10:58 AM) Anti mitochondria screen Not Detected Not-Detected [facility] DEPARTMENT OF PATHOLOGY AND GENOMIC MEDICINE Specimen Blood Performing Organization Address City/[facility] Phone Number [facility] DEPARTMENT OF PATHOLOGY AND [address] [place] [address] Hepatitis acute panel (03/15/2018 10:58 AM) Hepatitis A IgM Non-reactive Non-reactive [facility] DEPARTMENT OF PATHOLOGY AND GENOMIC MEDICINE Hepatitis B core IgM Non-reactive Non-reactive [facility] DEPARTMENT OF PATHOLOGY AND GENOMIC MEDICINE Hepatitis B surface Ag Non-reactive Non-reactive [facility] DEPARTMENT OF PATHOLOGY AND GENOMIC MEDICINE Hepatitis C Ab Reactive (A) Non-reactive [facility] DEPARTMENT OF Comment: PATHOLOGY AND GENOMIC HCV antibody testing initially Reactive. Confirmation by HCV RNA PCR will be MEDICINE performed and reported separately when completed. Repeat HCV RNA PCR will not be performed if done within 30 days. Specimen Serum Performing Organization Address [facility] Phone Number [facility] DEPARTMENT OF PATHOLOGY AND [address] [place] [address] Hepatitis C virus quantitative by PCR (03/15/2018 10:58 AM)Only the most recent of2 resultswithin the time period is included. Hepatitis C 804100 (A) Not-Detected IU/mL [facility] DEPARTMENT OF quantitative, PCR PATHOLOGY AND GENOMIC MEDICINE Hepatitis C See link below for [facility] DEPARTMENT OF quantitative, PCR PDF Lab PATHOLOGY AND GENOMIC ReportComment: Case MEDICINE Number: [id number] Specimen Blood Performing Organization Address [facility]ode Phone Number [facility] DEPARTMENT OF PATHOLOGY AND [address] [place] [address] YIMI (03/15/2018 10:58 AM) YIMI screen Positive (A) Negative [facility] DEPARTMENT OF PATHOLOGY AND GENOMIC MEDICINE Specimen Blood Performing Organization Address City/[facility] Phone Number [facility] DEPARTMENT OF PATHOLOGY AND [address] [place] [address] Ammonia level (03/15/2018 10:58 AM)Only the most recent of4 resultswithin the time period is included. Ammonia 44 11 - 51 umol/L [facility] DEPARTMENT OF PATHOLOGY AND GENOMIC MEDICINE Specimen Blood Performing Organization Address [facility] Phone Number [facility] DEPARTMENT OF PATHOLOGY AND [address] [place] [address] Us duplex venous lower extremity (03/15/2018 9:30 AM) Narrative Performed At [facility] Lower Extremity Venous Report [id number] [facility], [facility] [address], [place] [address] Pat.Name:Jimmie BIRONES.ID:[id number] .Date: 03/15/2018 Refer.MD:MELODY MOREL MD Exam Time: 8:50:00 AMStudy Type:LE Venous DOBAge:1960,57YSex: FEMALE Sonogrphr: Francis Cortes, RVSPat. Stat.:Inpatient TapeVol: FE, CPT - 4: 57390 Echo Event ID:[id number] Order ID:[id number] Reason for Study:Bilateral leg swelling; Respiratory failure and Anemia. Procedures:Colorflow, Grayscale/2D, Pulsed wave Doppler Race:C SUMMARY: DUPLEX SCAN OBSERVATIONS Deep VeinsSuperficial Veins RightLeft RightLeft EIV GSV (prox) NormalNormal CFV Normal Normal (above knee) Femoral Normal Normal GSV (dist) Normal Not Visualized Profunda Normal Normal (below knee) Popliteal Normal Normal PT (prox) Normal NormalSSV Normal Not Visualized PT (dist) Normal Normal Peroneal Normal Normal RIGHT:There is normal compressibility with no evidence of echogenic material noted within the lumen of the visualized veins.Colorflow and Doppler signals are pulsatile. LEFT: There is normal compressibility with no evidence of echogenic material noted within the lumen of the visualized veins. Colorflow and Doppler signals are pulsatile. PRELIMINARY FINDINGS 1.Normal venous duplex exam of the visualized veins. 2.Pulsatile Doppler flow throughout bilateral legs. PHYSICIAN INTERPRETATION 1.Venous examination of the both lower extremities demonstrates no evidence of venous thrombosis. 2.Venous pulsatility suggests fluid overload. Signed 03/15/2018 12:05 PM Parag Parker MD Procedure Note Interface, Radiology Results In - 03/15/2018 12:05 PM CDT [facility] Lower Extremity Venous Report [id number] [place] [address] Pat.Name: YULY BRIONES Pat.ID: [id number] .Date: 03/15/2018 Refer.MD: MELODY MOREL MD Exam Time: 8:50:00 AM Study Type:LE Venous Age: 10 1960,57Y Sex: FEMALE Sonogrphr: Francis Cortes RVS Pat. Stat.:Inpatient Tape Vol: FE, CPT - 4: 83260 Echo Event ID:[id number] Order ID: [id number] Reason for Study:Bilateral leg swelling; Respiratory failure and Anemia. Procedures:Colorflow, Grayscale/2D, Pulsed wave Doppler Race: C SUMMARY: DUPLEX SCAN OBSERVATIONS Deep Veins Superficial Veins Right Left Right Left EIV GSV (prox) Normal Normal CFV Normal Normal (above knee) Femoral Normal Normal GSV (dist) Normal Not Visualized Profunda Normal Normal (below knee) Popliteal Normal Normal PT (prox) Normal Normal SSV Normal Not Visualized PT (dist) Normal Normal Peroneal Normal Normal RIGHT: There is normal compressibility with no evidence of echogenic material noted within the lumen of the visualized veins. Colorflow and Doppler signals are pulsatile. LEFT: There is normal compressibility with no evidence of echogenic material noted within the lumen of the visualized veins. Colorflow and Doppler signals are pulsatile. PRELIMINARY FINDINGS 1. Normal venous duplex exam of the visualized veins. 2. Pulsatile Doppler flow throughout bilateral legs. PHYSICIAN INTERPRETATION 1. Venous examination of the both lower extremities demonstrates no evidence of venous thrombosis. 2. Venous pulsatility suggests fluid overload. Signed 03/15/2018 12:05 PM Parag Parker MD Performing Organization Address City/State/Zipcode Phone Number [facility] [address] [place] [address] Ionized calcium, venous (03/15/2018 4:08 AM) Ionized calcium, venous 1.03 (L) 1.11 - 1.32 mmol/L [facility] DEPARTMENT OF PATHOLOGY AND GENOMIC MEDICINE Performing Organization Address [facility]ode Phone Number [facility] DEPARTMENT OF PATHOLOGY AND [address] [place] [address] Partial thromboplastin time, activated (03/15/2018 4:08 AM)Only the most recent of3 resultswithin the time period is included. PTT 32.4 23.0 - 36.0 sec [facility] DEPARTMENT OF PATHOLOGY Comment: AND [facility] PTT therapeutic range for unfractionated heparin is 61.0-112.0 seconds which corresponds to Anti-Xa 0.3-0.7 U/ml. Specimen Blood Performing Organization Address [facility] Phone Number [facility] DEPARTMENT OF PATHOLOGY AND [address] [place] [address] Prothrombin time with INR (03/15/2018 4:08 AM)Only the most recent of3 resultswithin the time period is included. Prothrombin time 16.0 (H) 12.0 - 15.0 sec [facility] DEPARTMENT OF PATHOLOGY AND GENOMIC [facility] INR 1.3 [facility] DEPARTMENT OF Comment: PATHOLOGY AND GENOMIC The International Normalized Ratio (INR) is a therapeutic MEDICINE monitoring tool for patients who are stable on oral anticoagulant therapy. An INR of 2.0-3.0 is suggested for deep vein thrombosis/pulmonary embolism. Specimen Blood Performing Organization Address [facility] Phone Number [facility] DEPARTMENT OF PATHOLOGY AND [address] [place] [address] Fibrinogen (03/15/2018 4:08 AM)Only the most recent of2 resultswithin the time period is included. Fibrinogen 318 200 - 450 mg/dL [facility] DEPARTMENT OF PATHOLOGY AND GENOMIC [facility] Specimen Blood Performing Organization Address City/[facility] Phone Number [facility] DEPARTMENT OF PATHOLOGY AND [address] [place] [address] B natriuretic peptide (03/15/2018 4:08 AM) BNP 658 (H) 0 - 100 pg/mL [facility] DEPARTMENT OF PATHOLOGY AND GENOMIC [facility] Specimen Blood Performing Organization Address [facility] Phone Number [facility] DEPARTMENT OF PATHOLOGY AND [address] [place] [address] Lactic acid level (03/15/2018 4:08 AM)Only the most recent of2 resultswithin the time period is included. Lactic acid 1.0 0.5 - 2.2 mmol/L [facility] DEPARTMENT OF PATHOLOGY AND GENOMIC MEDICINE Specimen Plasma specimen Performing Organization Address [facility] Phone Number [facility] DEPARTMENT OF PATHOLOGY AND [address] [place] [address] Occult blood, stool (03/15/2018 1:30 AM) Occult blood, stool Negative for occult blood. [facility] DEPARTMENT OF PATHOLOGY Comment: AND [employer] [facility] Specimen Information Specimen Source: Stool Specimen Site: Nonpreserved Specimen Stool - Nonpreserved Performing Organization [facility] Phone Number [facility] DEPARTMENT OF PATHOLOGY AND [address] [place] [address] Gram stain (03/15/2018 1:30 AM) Gram stain result Few WBC's [facility] DEPARTMENT OF PATHOLOGY No organisms seen AND [employer] [facility] Comment: Specimen Information Specimen Source: Urine Specimen Site: Catheterized Specimen Urine - Catheterized Performing Organization Address [facility] Phone Number [facility] DEPARTMENT OF PATHOLOGY AND [address] [place] [address] Thyroid stimulating hormone (03/14/2018 10:50 PM) TSH 3.51 0.27 - 4.20 uIU/mL [facility] DEPARTMENT OF PATHOLOGY AND GENOMIC MEDICINE Specimen Plasma specimen Performing Organization Address [facility] Number [facility] DEPARTMENT OF PATHOLOGY AND [address] [place] [address] T4, free (03/14/2018 10:50 PM) T4, free 1.2 0.9 - 1.7 ng/dL [facility] DEPARTMENT OF PATHOLOGY AND GENOMIC MEDICINE Specimen Plasma specimen Performing Organization Address [facility] Phone Number [facility] DEPARTMENT OF PATHOLOGY AND [address] [place] [address] Cortisol level, random (03/14/2018 10:50 PM) Cortisol, random 20 ug/dL [facility] DEPARTMENT OF PATHOLOGY Comment: AND [facility] Reference Ranges are not established for non-timed Cortisol levels. Reference Range for Timed Cortisol: 6 - 10 AM 6 - 18 ug/dl 4 - 8PM 3 - 11 ug/dl Specimen Plasma specimen Performing Organization Address City/State/Zipcode Phone Number [facility] DEPARTMENT OF PATHOLOGY AND [address] [place] [address] [facility] Ionized calcium, arterial (03/14/2018 9:35 PM) Ionized calcium, arterial 0.98 (L) 1.11 - 1.32 mmol/L [facility] DEPARTMENT OF PATHOLOGY AND [facility] Specimen Blood Performing Organization Address City/[facility]/Zipcode Phone Number [facility] DEPARTMENT OF PATHOLOGY AND [address] [place] [phone] [facility] CT Abdomen Pelvis Wo Contrast (03/14/2018 9:01 PM) Narrative Performed At CT ABDOMEN PELVIS WO CONTRAST [facility] CLINICAL INDICATION:ABDOMINAL PAIN TECHNIQUE: Multidetector CT of the abdomen and pelvis was performed without intravenous administration of iodinated contrast with multiplanar reformats. CT scans are performed using radiation dose reduction techniques (iterative reconstruction and/or automated exposure control). Technical factors are evaluated and adjusted to ensure appropriate moderation of exposure. Automated dose management technology is applied to adjust radiation exposure while achieving a diagnostic quality image. COMPARISON:CT 04/08/2016. FINDINGS: Lung bases:Bilateral pleural effusions greater on right. Trace pericardial effusion. Liver:Cirrhotic morphology. Gallbladder and biliary:Gallbladder is distended. Common bile duct is not dilated. Pancreas:Normal. Spleen: Enlarged measuring 16.9 cm. Gastrointestinal:Moderate fecal material throughout the colon. Nonfocal mesenteric edema. Large and small bowel are normal in caliber. Appendix is not visualized. No focal inflammatory changes within the right lower quadrant of the abdomen. Adrenals:Normal. Kidneys and ureters:No mass or hydronephrosis. Urinary bladder:Normal. Lymph nodes:No enlarged lymph nodes in the abdomen or pelvis. Peritoneum:No ascites or free air. Vascular:Extensive atherosclerotic changes of the abdominal aorta and major branch vessels. Evaluation of vessel lumens is limited due to lack of IV contrast. Reproductive organs:Uterus is absent. Unremarkable adnexae. Abdominal wall: Mild diffuse subcutaneous soft tissue edema. Gluteal subcutaneous injection granulomas. Right lower quadrant hernia mesh repair. Bones:Diffuse osteopenia. Mild degenerative changes. Mild degenerative changes. Partially visualized hardware in the left proximal femur. IMPRESSION: 1. Cirrhosis. Splenomegaly. No significant ascites. 2. Moderate fecal material throughout the colon. 3. Bilateral pleural effusions greater on right. [facility]-[id number] Procedure Note Hm Interface, Radiology Results Incoming - 03/14/2018 9:[address] ABDOMEN PELVIS WO CONTRAST CLINICAL INDICATION: ABDOMINAL PAIN TECHNIQUE: Multidetector CT of the abdomen and pelvis was performed without intravenous administration of iodinated contrast with multiplanar reformats. CT scans are performed using radiation dose reduction techniques (iterative reconstruction and/or automated exposure control). Technical factors are evaluated and adjusted to ensure appropriate moderation of exposure. Automated dose management technology is applied to adjust radiation exposure while achieving a diagnostic quality image. COMPARISON: CT 04/08/2016. FINDINGS: Lung bases: Bilateral pleural effusions greater on right. Trace pericardial effusion. Liver: Cirrhotic morphology. Gallbladder and biliary: Gallbladder is distended. Common bile duct is not dilated. Pancreas: Normal. Spleen: Enlarged measuring 16.9 cm. Gastrointestinal: Moderate fecal material throughout the colon. Nonfocal mesenteric edema. Large and small bowel are normal in caliber. Appendix is not visualized. No focal inflammatory changes within the right lower quadrant of the abdomen. Adrenals: Normal. Kidneys and ureters: No mass or hydronephrosis. Urinary bladder: Normal. Lymph nodes: No enlarged lymph nodes in the abdomen or pelvis. Peritoneum: No ascites or free air. Vascular: Extensive atherosclerotic changes of the abdominal aorta and major branch vessels. Evaluation of vessel lumens is limited due to lack of IV contrast. Reproductive organs: Uterus is absent. Unremarkable adnexae. Abdominal wall: Mild diffuse subcutaneous soft tissue edema. Gluteal subcutaneous injection granulomas. Right lower quadrant hernia mesh repair. Bones: Diffuse osteopenia. Mild degenerative changes. Mild degenerative changes. Partially visualized hardware in the left proximal femur. IMPRESSION: 1. Cirrhosis. Splenomegaly. No significant ascites. 2. Moderate fecal material throughout the colon. 3. Bilateral pleural effusions greater on right. [facility]-[id number] Performing Organization Address City/State/Zipcode Phone Number [facility] [address] [place] [address] CT Head Wo Contrast (03/14/2018 8:57 PM) Narrative Performed At EXAMINATION: [facility]ICAL H[facility]: altered mental status COMPARISON:None TECHNIQUE: Noncontrast enhanced images of the brain were obtained from the skull base to the vertex. Both soft tissue and bone reconstruction algorithms were performed. CT imaging was performed with iterative reconstruction technique and/or automated exposure control to reduce radiation dose. IMPRESSION: No intracranial hemorrhage, mass, mass effect, or herniation. No acute osseous abnormalities. The paranasal sinuses are clear. Age-related volume loss is seen as characterized by prominence of cerebral sulci and ventricular systems. Periventricular and subcortical white matter hypodensities are seen, compatible with sequelae of chronic small vessel ischemic disease. CONCLUSION: No acute intracranial abnormalities. Chronic age-related changes and sequelae of chronic small vessel ischemic disease. [facility]-[id number] Procedure Note Interface, Radiology Results Incoming - 03/14/2018 9:09 PM CDT EXAMINATION: CT HEAD WO CONTRAST CLINICAL HISTORY: altered mental status COMPARISON: None TECHNIQUE: Noncontrast enhanced images of the brain were obtained from the skull base to the vertex. Both soft tissue and bone reconstruction algorithms were performed. CT imaging was performed with iterative reconstruction technique and/or automated exposure control to reduce radiation dose. IMPRESSION: No intracranial hemorrhage, mass, mass effect, or herniation. No acute osseous abnormalities. The paranasal sinuses are clear. Age-related volume loss is seen as characterized by prominence of cerebral sulci and ventricular systems. Periventricular and subcortical white matter hypodensities are seen, compatible with sequelae of chronic small vessel ischemic disease. CONCLUSION: No acute intracranial abnormalities. Chronic age-related changes and sequelae of chronic small vessel ischemic disease. [facility]-[id number] Performing Organization Address City/State/Zipcode Phone Number [facility] [address] [place] [address] [place] Abdominal Doppler (03/14/2018 8:27 PM) Narrative Performed At EXAMINATION:[facility] CLINICAL H[facility]ORY:Cirrhosis of the liver. COMPARISON:CT chest April 14, 2016. TECHNIQUE: Ultrasound of the abdominal vessels with grayscale, color flow Doppler, spectral Doppler imaging obtained. IMPRESSION: Technically limited examination secondary to dyspnea] respiratory artifact. No abnormality detected although all vessels could not be identified. FINDINGS: 1.Main portal vein is normal in diameter measuring 1.1 cm and patent with normal hepatopetal flow. Peak flow velocity measures 31 cm/s. 2.Left portal vein and posterior division of the right portal vein are patent with normal hepatopetal flow. Anterior division of the right portal vein was not well seen. 3.Right, left, and middle hepatic veins are patent with normal hepatofugal flow. 4.Proper right hepatic arteries are patent and demonstrate normal arterial waveform phalanges. Left hepatic artery could not be identified. 5.Splenic artery and vein are patent at the hilum and demonstrate normal directional flow and waveform morphologies. Vessels could not be identified in the midline, obscured by shadowing. 6.IVC is patent. 7.SMV could not be identified. [facility]-[id number] Procedure Note Interface, Radiology Results Incoming - 03/14/2018 8:56 PM CDT EXAMINATION: US ABDOMINAL DOPPLER CLINICAL HISTORY: Cirrhosis of the liver. COMPARISON: CT chest April 14, 2016. TECHNIQUE: Ultrasound of the abdominal vessels with grayscale, color flow Doppler, spectral Doppler imaging obtained. IMPRESSION: Technically limited examination secondary to dyspnea] respiratory artifact. No abnormality detected although all vessels could not be identified. FINDINGS: 1. Main portal vein is normal in diameter measuring 1.1 cm and patent with normal hepatopetal flow. Peak flow velocity measures 31 cm/s. 2. Left portal vein and posterior division of the right portal vein are patent with normal hepatopetal flow. Anterior division of the right portal vein was not well seen. 3. Right, left, and middle hepatic veins are patent with normal hepatofugal flow. 4. Proper right hepatic arteries are patent and demonstrate normal arterial waveform phalanges. Left hepatic artery could not be identified. 5. Splenic artery and vein are patent at the hilum and demonstrate normal directional flow and waveform morphologies. Vessels could not be identified in the midline, obscured by shadowing. 6. IVC is patent. 7. SMV could not be identified. [facility]-[id number] Performing Organization Address City/State/Zipcode Phone Number [facility] [address] [place] [address] US Abdomen Complete (03/14/2018 8:25 PM) Narrative Performed At EXAM: US ABDOMEN COMPLETE [facility] CLINICAL DATA:CIRRHOSIS COMPARISON: CT chest performed April 14, 2016. IMPRESSION: Cirrhosis of the liver. Small right pleural effusion. FINDINGS: LIVER:Liver is cirrhotic. No mass or ductal dilatation identified. GALLBLADDER:Gallbladder is distended. Diffuse wall thickening is most likely secondary to cirrhosis. No sludge or stones identified. COMMON DUCT:Normal within the fay hepatis measuring, 6 mm. PANCREAS:Unremarkable, although portions are obscured by shadowing. SPLEEN: Upper limits of normal in size measuring 12.6 x 5.9 x 5.8 cm. KIDNEYS: Normal in position, echogenicity, and size. Right kidney measures 10.2 x 4.8 x 4.2 cm. Left kidney measures 9.2 x 4.7 x 4.5 cm. No suspicious mass, calculus, or hydronephrosis identified. AORTA:Obscured by shadowing. IVC:Visualized inferior vena cava is unremarkable. PORTAL VEIN: Normal in diameter measuring 1.1 cm and patent with normal hepatopetal flow. ASCITES: No free fluid or fluid collection. PLEURAL EFFUSION:Right pleural effusion. Thank you for allowing us to participate in the care of your patient. [facility]-[id number] Procedure Note Hm Interface, Radiology Results Incoming - 03/14/2018 8:53 PM CDT EXAM: US ABDOMEN COMPLETE CLINICAL DATA: CIRRHOSIS COMPARISON: CT chest performed April 14, 2016. IMPRESSION: Cirrhosis of the liver. Small right pleural effusion. FINDINGS: LIVER: Liver is cirrhotic. No mass or ductal dilatation identified. GALLBLADDER: Gallbladder is distended. Diffuse wall thickening is most likely secondary to cirrhosis. No sludge or stones identified. COMMON DUCT: Normal within the fay hepatis measuring, 6 mm. PANCREAS: Unremarkable, although portions are obscured by shadowing. SPLEEN: Upper limits of normal in size measuring 12.6 x 5.9 x 5.8 cm. KIDNEYS: Normal in position, echogenicity, and size. Right kidney measures 10.2 x 4.8 x 4.2 cm. Left kidney measures 9.2 x 4.7 x 4.5 cm. No suspicious mass , calculus, or hydronephrosis identified. AORTA: Obscured by shadowing. IVC: Visualized inferior vena cava is unremarkable. PORTAL VEIN: Normal in diameter measuring 1.1 cm and patent with normal hepatopetal flow. ASCITES: No free fluid or fluid collection. PLEURAL EFFUSION: Right pleural effusion. Thank you for allowing us to participate in the care of your patient. [facility]-[id number] Performing Organization Address City/State/Zipcode Phone Number [facility] [address] [place] [address] Liver-kidney microsome Ab, IgG (03/14/2018 8:16 PM) Liver-kidney microsome Ab, <1:20 <1:20 [facility] IgG Comment: INTERPRETIVE INFORMATION:Potiy-Gragxj-Qtxiuyqck Abs, IgG Liver-Kidney Microsome IgG antibody (anti-LKM), as detected by indirect immunofluorescent antibody (IFA) techniques, may be observed in patients with autoimmune hepatitis type 2 (AIH-2), AIH-2 associated with autoimmune ynoqzsrdhnwmmxktcx-cqenzjnrvhy-ulwiwtprat dystrophy (APECED), viral hepatitis C or D, and some forms of drug-induced hepatitis. This IFA does not differentiate among the four types of LKM antibodies (LKM-1, LKM-2, LKM-3, and a fourth type that recognizes CY and CY antigens). Of these, anti-LKM-1 (cytochrome [id number]) IgG antibodies are considered specific for AIH-2. Test developed and characteristics determined by [facility]. See Compliance Statement D: [facility]/ Performed by [facility], [address] [address] [place], [place] [id number] [email or web address], Jan Orozco MD - Lab. Director Specimen Serum Performing Organization Address [facility] Phone Number [employer] [address] [address] Alpha-1 antitrypsin phenotype (03/14/2018 8:16 PM) Alpha-1 antitrypsin 206 (H)Comment: To convert 90 - 200 mg/dL [facility] to umol/L, multiply mg/dL by 0.185 Alpha-1 antitrypsin M1M2 [facility] phenotype Comment: The patient appears to have a normal phenotype. All M alleles (including subtypes M1, M2, and M3) produce normal serum concentrations of amwhx-2-lkscnjoo inhibitor and are not associated with clinical disease. Caution in interpretation is advised if the patient has been transfused within the previous 21 days. Performed by [employer], [address] [place] [id number] [email or web address], Jan Orozco MD - Lab. Director Specimen Serum Performing Organization Address [facility] Phone Number [facility] [address] [place] [address] Alpha fetoprotein (03/14/2018 8:16 PM) Alpha fetoprotein 2.7 0.0 - 8.3 ng/mL [facility] DEPARTMENT OF Comment: PATHOLOGY AND GENOMIC The Leia 8000 AFP immunoassay was used. MEDICINE Results obtained with different assay methods or kits should not be used interchangeably and may be different. Specimen Serum Performing Organization Address [facility] Phone Number [facility] DEPARTMENT OF PATHOLOGY AND [address] [place] [address] Lactic acid level, SEPSIS - Now and repeat 2x every 3 hours (03/14/2018 7:18 PM )Only the most recent of2 resultswithin the time period is included. Lactic acid 0.8 0.5 - 2.2 mmol/L [facility] DEPARTMENT OF PATHOLOGY AND GENOMIC MEDICINE Specimen Blood Performing Organization Address [facility] Phone Number [facility] DEPARTMENT OF PATHOLOGY AND [address] [place] [id number] [place] [address] Urine drugs of abuse screen (03/14/2018 5:30 PM) Amphetamine screen, urine Negative [facility] DEPARTMENT OF PATHOLOGY AND GENOMIC MEDICINE Barbiturate screen, urine Negative [facility] DEPARTMENT OF PATHOLOGY AND GENOMIC MEDICINE Benzodiazepine screen, Negative [facility] DEPARTMENT OF urine PATHOLOGY AND GENOMIC MEDICINE Cannabinoid screen, urine Negative [facility] DEPARTMENT OF PATHOLOGY AND GENOMIC MEDICINE Cocaine screen, urine Negative [facility] DEPARTMENT OF PATHOLOGY AND GENOMIC MEDICINE Methadone metabolite Negative [facility] DEPARTMENT OF (EDDP), urine PATHOLOGY AND GENOMIC MEDICINE Opiates screen, urine Positive (A) [facility] DEPARTMENT OF PATHOLOGY AND GENOMIC MEDICINE Oxycodone screen, urine Negative [facility] DEPARTMENT OF PATHOLOGY AND GENOMIC MEDICINE Phencyclidine screen, urine Negative [facility] DEPARTMENT OF PATHOLOGY AND GENOMIC MEDICINE Tricyclic screen, urine Negative [facility] DEPARTMENT OF Comment: PATHOLOGY AND GENOMIC Drug screen minimum concentration of detectability MEDICINE Vlvekhegtwhd8215 ng/mL Barbiturates 200 ng/mL Lqfgpfgbgwqrfwx840 ng/mL Ujzutrn865 ng/mL Vrirmvbpr711 ng/mL Qhbjhvi889 ng/mL Yzyzxflfp106 ng/mL Phencyclidine 25 ng/mL Qngmdkvkwdhu15 ng/mL Mpkomishyi1743 ng/mL Negative test results indicates presumptive evidence of lack of clinically significant drug concentration in this urine specimen. Positive test results are presumptive evidence of clinically significant drug concentration in this urine specimen. Testing performed for medical purposes only. Specimen Urine Performing Organization Address [facility] Phone Number [facility] DEPARTMENT OF PATHOLOGY AND [address] [place] [address] [employer] [facility] ECG ED Preliminary Interpretation - NOT AN ORDER (03/14/2018 5:24 PM) Narrative Performed At Jaydon Reyna MD 03/15/20189:54 AM ECG ED Preliminary Interpretation - Not an Order Performed by: ALON COFFEY Authorized by: JAYDON REYNA ECG reviewed by ED Physician in the absence of a stick roller: yes Previous ECG: Previous ECG:Compared to current Comparison ECG info:04/22/2016 01:37 Similarity:Changes noted Interpretation: Interpretation: non-specific Rate: ECG rate:87 bpm ECG rate assessment: normal Rhythm: Rhythm: sinus rhythm Ectopy: Ectopy: none QRS: QRS axis:Left QRS intervals:Normal Conduction: Conduction: normal ST segments: ST segments:Non-specific T waves: T waves: non-specific CRITICAL CARE (03/14/2018 5:24 PM) Narrative Performed At Jaydon Reyna MD 03/15/20189:54 AM Critical Care Performed by: ALON COFFEY Authorized by: JAYDON REYNA Critical care provider statement: Critical care time (minutes):65 Critical care time was exclusive of:Separately billable procedures and treating other patients and teaching time Critical care was necessary to treat or prevent imminent or life-threatening deterioration of the following conditions:Endocrine crisis, metabolic crisis, circulatory failure and dehydration Critical care was time spent personally by me on the following activities:Discussions with consultants, evaluation of patient's response to treatment, ordering and performing treatments and interventions, ordering and review of laboratory studies, ordering and review of radiographic studies, pulse oximetry, re-evaluation of patient's condition, review of old charts and examination of patient Abdirahman 'yes' if you are taking over critical care for this patient from another provider.: no Total iron binding capacity (03/14/2018 4:01 PM) Iron level 28 (L) 37 - 145 ug/dL [facility] DEPARTMENT OF PATHOLOGY AND GENOMIC MEDICINE Iron binding capacity 226 200 - 400 ug/dL [facility] DEPARTMENT OF PATHOLOGY AND GENOMIC MEDICINE % Saturation 12.4 (L) 15.0 - 38.0 % [facility] DEPARTMENT OF PATHOLOGY AND GENOMIC MEDICINE Specimen Plasma specimen Narrative Performed At results called to and read back by [facility] DEPARTMENT OF PATHOLOGY AND GENOMIC _CHASE MONSON/[place]ILA(name/location) MEDICINE at __ 03/14/201816:48(date/time) by __CL1. Performing Organization Address City/State/Zipcode Phone Number [facility] DEPARTMENT OF PATHOLOGY AND [address] [place] [address] gate5 Hemoglobin A1c (03/14/2018 4:01 PM) Hemoglobin A1C <3.5 (L) 4.0 - 5.6 % [facility] DEPARTMENT OF PATHOLOGY Comment: AND [employer] [facility] HbA1c cutoffs for diagnosing diabetes: 4.0% - 5.6%=normal 5.7% - 6.4%=increased risk for diabetes (prediabetes) >=6.5%=diabetes Goals for glycemic control (ADA 2016) < 7.0%Target for non adults with diabetes. More or less stringent targets may be appropriate for individual patients. <7.5% Target for Children and adolescents with type 1 diabetes. Narrative Performed At results called to and read back by [facility] DEPARTMENT OF PATHOLOGY AND [employer] _CHASE MONSON/[place]IL[place](name/location) MEDICINE at __ 03/14/201816:48(date/time) by __CL1. Performing Organization Address City/State/Zipcode Phone Number [facility] DEPARTMENT OF PATHOLOGY AND [address] [place] [address] gate5 Alcohol level, blood (03/14/2018 4:01 PM) Alcohol None Detected mg/dL [facility] DEPARTMENT OF PATHOLOGY Comment: AND [employer] [facility] Normal None Detected Legal Intoxication in [place]80 mg/dL (0.08%) - Whole Blood Toxic Kokufdmdiminp505 mg/dL (0.2%) Potentially Gjbek474 - 500 mg/dL (0.35 - 0.5%) Alcohol percent None Detected % [facility] DEPARTMENT OF PATHOLOGY AND [employer] MEDICINE Specimen Plasma specimen Narrative Performed At results called to and read back by [facility] DEPARTMENT OF PATHOLOGY AND [employer] _CHASE MONSON/[place](name/location) MEDICINE at __ 03/14/201816:48(date/time) by __CL1. Performing Organization Address City/State/Zipcode Phone Number [facility] DEPARTMENT OF PATHOLOGY AND [address] [place] [address] gate5 Blood culture, aerobic & anaerobic (03/14/2018 4:00 PM)Only the most recent of2 resultswithin the time period is included. Blood culture isolate No growth after 5 days of incubation. [facility] DEPARTMENT OF Comment: PATHOLOGY AND GENOMIC Specimen Information MEDICINE Specimen Source: Blood Specimen Site: Antecubital, left Specimen Blood - Antecubital, left Performing Organization Address City/[facility] Phone Number [facility] DEPARTMENT OF PATHOLOGY AND [address] [place] [address] [employer] MEDICINE Prepare RBC, 1 Units (03/14/2018 4:00 PM)Only the most recent of2 resultswithin the time period is included. Product name Red Blood Cells -1, [facility] DEPARTMENT OF Leukored PATHOLOGY AND GENOMIC MEDICINE Unit number [id number] [facility] DEPARTMENT OF PATHOLOGY AND GENOMIC MEDICINE Product code [id number] [facility] DEPARTMENT OF PATHOLOGY AND GENOMIC MEDICINE Dispense status Transfused [facility] DEPARTMENT OF PATHOLOGY AND GENOMIC MEDICINE Blood expiration date [id number] [facility] DEPARTMENT OF PATHOLOGY AND GENOMIC MEDICINE Blood type code 5100 [facility] DEPARTMENT OF PATHOLOGY AND GENOMIC MEDICINE Blood type O POSITIVE [facility] DEPARTMENT OF PATHOLOGY AND GENOMIC MEDICINE Performing Organization Address [facility] Phone Number [facility] DEPARTMENT OF PATHOLOGY AND [address] [place] [address] GENOMIC MEDICINE Type and screen (03/14/2018 4:00 PM) ABO grouping O [facility] DEPARTMENT OF PATHOLOGY AND GENOMIC MEDICINE Rh type POS [facility] DEPARTMENT OF PATHOLOGY AND GENOMIC MEDICINE Antibody screen (gel) NEG [facility] DEPARTMENT OF PATHOLOGY AND GENOMIC MEDICINE Specimen Blood Performing Organization Address [facility] Phone Number [facility] DEPARTMENT OF PATHOLOGY AND [address] [place] [address] GENOMIC MEDICINE after 04/29/2017 Insurance Payer Benefit Plan / Group Subscriber ID Type Phone Address [employer] JOE xxxxxxxxx HMO Home: [address] [place], [place] [phone] [place], [place] [phone]
--- OUTSIDE RECORDS SUMMARY | 2018-04-30 17:16 | XMS REPORT | Clinical Summary ---
:1960 Author Organization [facility] Address [address] [place] [address] Phone Care Team Providers Name Role Phone Unavailable Primary Care Provider Unavailable Allergies Active Allergy Reactions Severity Noted Date Comments Nsaids (Non-Steroidal Anaphylaxis High 04/22/2016 Anti-Inflammatory Drug) Chlorpromazine Shortness Of Breath, High 02/23/2015 Upper respiratory Nausea And Vomiting distress Ibuprofen 06/07/2016 Ketorolac Hives, Nausea And 02/23/2015 Vomiting Tramadol Hives 06/07/2016 Current Medications Prescription Sig. Disp. Refills Start End Status Date Date esomeprazole (NEXIUM) Take 40 mg by Active 40 MG capsule mouth daily. hydroxychloroquine Take 200 mg by Active (PLAQUENIL) 200 mg mouth 2 (two) tabletIndications: times daily. Rheumatoid Arthritis fluticasone-salmeterol Inhale 1 puff by 1 Inhaler 0 12/22/19 Active (ADVAIR) 250-50 mouth via inhaler 17 mcg/dose diskus every 12 (twelve) inhaler hours. tiotropium (SPIRIVA) Inhale 1 capsule 30 capsule 0 12/22/19 Active 18 mcg inhalation (18 mcg total) by 17 capsule mouth via inhaler daily. apixaban (ELIQUIS) 5 Take 1 tablet (5 60 tablet 1 03/08/20 Active mg Tab tablet mg total) by 18 mouth 2 (two) times daily. amiodarone (PACERONE) Take 1 tablet 30 tablet 1 03/09/ 0525/2 Active 200 MG tablet (200 mg total) by 18 019 mouth daily. buPROPion (WELLBUTRIN Take 1 tablet 30 tablet 1 03/09/ Active XL) 300 MG 24 hr (300 mg total) by 18 019 tablet mouth daily. folic acid (FOLVITE) 1 Take 1 tablet (1 30 tablet 1 03/09/03/09/ Active MG tablet mg total) by 18 019 mouth daily. lactulose (CHRONULAC) Take 30 mLs (20 g 3000 mL 1 03/08/20 Active 20 gram/30 mL solution total) by mouth 3 18 (three) times daily. metoprolol (LOPRESSOR) Take 0.5 tablets 30 tablet 1 03/08/20 Active 25 MG tablet (12.5 mg total) 18 019 by mouth 2 (two) times daily. pravastatin Take 1 tablet (40 30 tablet 1 03/09/20 Active (PRAVACHOL) 40 MG mg total) by 18 019 tablet mouth daily. QUEtiapine (SEROQUEL) Take 1 tablet by 03/09/20 Active 100 MG tablet mouth nightly . 18 cetirizine (ZYRTEC) 10 Take 1 tablet (10 30 tablet 11 04/20/20 Active MG tablet mg total) by 18 019 mouth daily. furosemide (LASIX) 10 Inject 8 mLs (80 4 mL 0 04/19/20 Active mg/mL injection mg total) 18 intravenously every 8 (eight) hours. predniSONE (DELTASONE) Take 1 tablet (20 30 tablet 0 04/20/ Active 20 MG tablet mg total) by 18 018 mouth daily for 10 days. buPROPion (WELLBUTRIN Take 300 mg by Discontinued XL) 300 MG 24 hr mouth daily. 018 tablet estrogens, conjugated, Take 1.25 mg by Discontinued (PREMARIN) 1.25 MG mouth daily. 018 tablet traZODone (DESYREL) 50 Take 100 mg by Discontinued MG tablet mouth nightly . 018 lisinopril-hydrochloro Take 1 tablet by Discontinued thiazide mouth daily. 017 (PRINZIDE,ZESTORETIC) 20-25 mg per tablet pravastatin Take 40 mg by Discontinued (PRAVACHOL) 40 MG mouth daily. 018 tablet dicyclomine (BENTYL) Take 10 mg by Discontinued 10 MG capsule mouth 4 (four) 018 times daily before meals and nightly. QUEtiapine (SEROQUEL) Take 400 mg by Discontinued 200 MG mouth nightly . 018 tabletIndications: Depression associated with Bipolar Disorder aspirin 81 MG EC Take 81 mg by Discontinued tablet mouth daily. 018 DULoxetine (CYMBALTA) Take 60 mg by Discontinued 60 MG mouth daily. 018 capsuleIndications: Anxiety with Depression promethazine Take 25 mg by Discontinued (PHENERGAN) 25 MG mouth every 6 018 tablet (six) hours as needed for Nausea. albuterol HFA Inhale 1 puff by 1 Inhaler 0 12/22/19 (VENTOLIN HFA) 90 mouth via inhaler 17 018 mcg/actuation inhaler every 6 (six) hours as needed for Wheezing. APIXABAN (ELIQUIS Take 10 mg by Discontinued ORAL) mouth. 017 donepezil (ARICEPT) 10 Take 10 mg by Discontinued MG tablet mouth nightly. 018 TiZANidine (ZANAFLEX) Take 4 mg by Discontinued 4 MG capsule mouth 3 (three) 018 times daily. amiodarone (PACERONE) Take 1 tablet 30 tablet 11 09/22/20 Discontinued 200 MG tablet (200 mg total) by 17 018 mouth daily. bumetanide (BUMEX) 2 Take 1 tablet (2 30 tablet 11 09/22/20 Discontinued MG tablet mg total) by 17 018 mouth daily. clonazePAM (KLONOPIN) Take 1 tablet (1 60 tablet 0 09/21/20 Discontinued 1 MG tablet mg total) by 17 018 mouth 3 (three) times daily for 30 days. Max Daily Amount: 3 mg colchicine (COLCRYS) Take 1 tablet 30 tablet 11 09/22/20 Discontinued 0.6 mg tablet (0.6 mg total) by 17 018 mouth daily. metoprolol (LOPRESSOR) Take 0.5 tablets 30 tablet 11 09/21/20 Discontinued 25 MG tablet (12.5 mg total) 17 018 by mouth 2 (two) times daily. oxyCODONE-acetaminophe Take 1 tablet by 30 tablet 0 09/21/20 Discontinued n (PERCOCET) 10-325 mg mouth every 4 17 018 per tablet (four) hours as needed for up to 10 days. Max Daily Amount: 6 tablets clonazePAM (KLONOPIN) Take 1 tablet 60 tablet 1 11/21/19 0.5 MG tablet (0.5 mg total) by 18 018 mouth 2 (two) times daily as needed (anxiety) for up to 30 days. Max Daily Amount: 1 mg furosemide (LASIX) 40 Take 1 tablet (40 30 tablet 11 11/23/19 Discontinued MG tablet mg total) by 18 018 mouth every other day. HYDROcodone-acetaminop Take 1 tablet by 30 tablet 0 11/21/19 hen (NORCO 5-325) mouth every 6 18 018 5-325 mg per tablet (six) hours as needed for up to 10 days. Max Daily Amount: 4 tablets levoFLOXacin Take 1 tablet 7 tablet 0 11/22/19 (LEVAQUIN) 750 MG (750 mg total) by 18 018 tablet mouth daily for 7 days. metoprolol (LOPRESSOR) Take 0.5 tablets 60 tablet 11 11/21/19 Discontinued 25 MG tablet (12.5 mg total) 18 018 by mouth 2 (two) times daily. minocycline Take 1 capsule 60 capsule 0 11/21/19 (MINOCIN,DYNACIN) 100 (100 mg total) by 18 018 MG capsule mouth 2 (two) times daily for 10 days. apixaban (ELIQUIS) 2.5 Take 1 tablet 0 11/21/19 Discontinued mg Tab tablet (2.5 mg total) by 18 018 mouth 2 (two) times daily. dicyclomine (BENTYL) Take 10 mg by Discontinued 10 MG capsule mouth 4 (four) 018 times daily before meals and nightly. estrogens, conjugated, Take 1.25 mg by Discontinued (PREMARIN) 1.25 MG mouth daily. 018 tablet lisinopril-hydroCHLORO Take 1 tablet by Discontinued thiazide mouth daily. 018 (PRINZIDE,ZESTORETIC) 20-25 mg per tablet promethazine Take 25 mg by Discontinued (PHENERGAN) 25 MG mouth every 6 018 tablet (six) hours as needed for Nausea. clonazePAM (KLONOPIN) Take 1 mg by Discontinued 1 MG tablet mouth 4 (four) 018 times daily. amiodarone (PACERONE) Take 1 tablet 30 tablet 0 02/03/20 Discontinued 200 MG tablet (200 mg total) by 18 018 mouth daily. bisacodyl (DULCOLAX) 5 Take 2 tablets 30 tablet 0 02/02/20 Discontinued mg EC tablet (10 mg total) by 18 018 mouth daily as needed for Constipation for up to 30 days. docusate sodium Take 1 capsule 60 capsule 0 02/02/20 Discontinued (COLACE) 100 MG (100 mg total) by 18 018 capsule mouth 2 (two) times daily for 30 days. hydrOXYzine (ATARAX) Take 1 tablet (10 30 tablet 0 02/02/20 Discontinued 10 MG tablet mg total) by 18 018 mouth 3 (three) times daily as needed for Itching for up to 10 days. micafungin (MYCAMINE) Inject 100 mg 1 g 0 02/02/20 Discontinued MBP 100 mg in 100 mL intravenously 18 018 NS daily for 10 days. vancomycin (VANCOCIN) Inject 1,000 mg 10 g 0 02/03/20 Discontinued IVPB 1000 mg in intravenously 18 018 dextrose 5% (D5W) 200 daily for 10 mL days. traZODone (DESYREL) Take 100 mg by Discontinued 100 MG tablet mouth nightly. 018 QUEtiapine (SEROQUEL) Take 200 mg by Discontinued 200 MG tablet mouth nightly. 018 clonazePAM (KLONOPIN) Take 1 tablet (1 60 tablet 0 03/08/20 1 MG tablet mg total) by 18 018 mouth 3 (three) times daily as needed for Anxiety for up to 30 days. Max Daily Amount: 3 mg HYDROcodone-acetaminop Take 1 tablet by 30 tablet 0 03/08/20 hen (NORCO 5-325) mouth every 6 18 018 5-325 mg per tablet (six) hours as needed for up to 10 days. Max Daily Amount: 4 tablets micafungin (MYCAMINE) Inject 100 mg 0 03/09/20 Discontinued MBP 100 mg in 100 mL intravenously 18 018 NS daily. QUEtiapine (SEROQUEL) Take 1 tablet 30 tablet 1 03/08/20 100 MG tablet (100 mg total) by 18 018 mouth nightly for 30 days. rifAXIMin 550 mg Tab Take 1 tablet 60 tablet 1 03/08/20 Discontinued (550 mg total) by 18 018 mouth 2 (two) times daily. acetaminophen-codeine Take 1 tablet by 01/24/20 Discontinued (TYLENOL #4) 300-60 mg mouth every 6 18 018 per tablet (six) hours as needed . buPROPion (WELLBUTRIN) Take 1 tablet by 04/08/20 Discontinued 100 MG tablet mouth 2 (two) 18 018 times daily . HYDROcodone-acetaminop Take 1 tablet by 30 tablet 0 04/19/20 hen (NORCO 10-325) mouth every 6 18 018 10-325 mg per tablet (six) hours as needed for up to 10 days. Max Daily Amount: 4 tablets Active Problems Problem Noted Date CHF exacerbation ([facility]) 04/16/2018 SOB (shortness of breath) 04/16/2018 Acute biliary pancreatitis without infection or necrosis 03/01/2018 Dyspnea and respiratory abnormality 02/08/2018 Cardiogenic shock ([facility]) 11/13/2017 Acute respiratory failure with hypoxia and hypercapnia ([facility]) 11/13/2017 Acute metabolic encephalopathy 11/13/2017 Postoperative wound infection, subsequent encounter 09/30/2017 Pleural effusion on left 09/13/2017 Acute pulmonary insufficiency following thoracic surgery ([facility]) 09/13/2017 Pericardial effusion without cardiac tamponade 09/12/2017 S/P pericardial operation 09/12/2017 CAD (coronary artery disease) 09/09/2017 Positive cardiac stress test 09/09/2017 Acute pulmonary insufficiency following thoracic surgery ([facility]) 09/09/2017 Postoperative anemia due to acute blood loss 09/09/2017 Thrombocytopenia ([facility]) 09/09/2017 Hyperglycemia 09/09/2017 Hypotension 09/09/2017 Chest pain 2017 Anxiety 12/15/2016 Microcytic anemia 12/15/2016 Hyponatremia 12/15/2016 Hypertension 12/15/2016 Cirrhosis (HCC) 12/15/2016 History of stroke 12/15/2016 Elevated partial thromboplastin time (PTT) 12/15/2016 Elevated protime 12/15/2016 Acute pulmonary edema (HCC) 10/16/2016 Left lower quadrant pain 09/09/2016 COPD (chronic obstructive pulmonary disease) (HCC) Hepatitis C Bipolar 1 disorder (HCC) Pulmonary embolism (HCC) Cataracts, bilateral Arthritis Overview: rheumatoid Septic shock (HCC) Bacteremia due to Gram-negative bacteria Sepsis due to methicillin resistant Staphylococcus aureus (HCC) Encounters Date Type Specialty Care Team Description 04/16/2018 [facility] General Internal Stone, Nevin PLATA (shortness of - Encounter Medicine MD Kavitha breath) (Primary 04/20/2018 Chris Marsh Dx);Acute on chronic MD Kalie systolic congestive heart failure (HCC) 02/28/2018 Procedure Pass Gastroenterology 02/28/2018 Surgery Gastroenterology Zbigniew Roach ERCP,PAPILLOTOMY MD Kyree 02/27/2018 Anesthesia Event Gastroenterology Adriana Kumari, BRAYAN 02/27/2018 Orders Only General Internal Medicine 02/08/2018 [facility] Cardiology Mohsen Brownvid, Dyspnea and - Encounter DO respiratory 03/09/2018 Bessy Morris abnormality (Primary Doreen, Dx);Chest MD pressure;Anemia, Hasan, Danis unspecified Viviana Morrow MD type;Pancytopenia Bob, (HCC);Hypokalemia;Anthony Lindsay MD evated brain natriuretic peptide (BNP) level;Acute pulmonary edema (HCC);Acute respiratory failure with hypoxia and hypercapnia (HCC);Acute metabolic encephalopathy;Other emphysema (HCC);Bacteremia due to Gram-negative bacteria;Septic shock (HCC);Sepsis due to methicillin resistant Staphylococcus aureus (HCC) 01/26/2018 Procedure Pass 01/26/2018 Surgery ERICA Rolon,STERNAL Rafa Delacruz MD 01/25/2018 Anesthesia Event Fareed Maciel MD 01/24/2018 [facility] Cardiology Bahman Malik Chest pain, - Encounter MD Chris unspecified type 02/01/2018 Bessy Morris (Primary Dx);Acute latrice Logan MD encephalopathy;Wound Manolo Cortez infection;Willie Alva MD emia;Hypokalemia 01/24/2018 Orders Only General Internal Medicine 11/09/2017 Procedure Pass 11/09/2017 Surgery Manish Walton IABP INSERTION SYLVIA Dunn MD - IP PROC ONLY 11/03/2017 Office Visit Cardiology 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, 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) 11/02/2017 Orders Only General Internal Medicine 10/30/2017 Procedure Pass 10/30/2017 Procedure Pass 10/28/2017 Procedure Pass 10/28/2017 Surgery Carmelita Tuttle CATHETERIZATION,LEN Hurley MD T HEART 10/23/2017 Anesthesia Event Anurag Smith MD 10/18/2017 Outside Orders Lab Kevyn Linares Acute pulmonary MD Arleen edema (HCC) (Primary Dx) 10/03/2017 Procedure Pass 10/03/2017 Surgery Dominiquest, DEBRIDEMENT/I&D,ANN Delacruz MD NUM 10/02/2017 Anesthesia Event Kevyn Solano MD 09/30/2017 Anesthesia Event Kevyn Solano MD 09/30/2017 Procedure Pass 09/30/2017 Surgery Adryan Mares DEBRIDEMENT/I&D,ANN Saxena MD NUM 09/29/2017 [facility] Cardiology Feng Mann Acute respiratory - Encounter Adryan Mares failure with hypoxia 11/21/2017 MD Hemanth and hypercarbia Yo, (HCC) (Primary Jude, Dx);Acute pulmonary MD edema Al Browning (HCC);Postoperative (Abdirahman) Pipo, wound infection, initial encounter;Postoperat aleida anemia due to acute blood loss;Cardiac arrest (HCC);Bipolar 1 disorder (HCC);Sepsis due to methicillin resistant Staphylococcus aureus (HCC);Acute renal failure, unspecified acute renal failure type (HCC);Acute metabolic encephalopathy 09/12/2017 Anesthesia Event Frandy Carrington MD 09/12/2017 Procedure Pass 09/12/2017 Surgery Adryan Mares CREATION,PERICARDIAL MD Hemanth WINDOW 09/09/2017 Anesthesia Event Tori Palafox MD 09/09/2017 Procedure Pass 09/09/2017 Surgery Adryan Mares BYPASS,AORTO MD Hemanth CORONARY MELE 09/09/2017 Procedure Pass 09/09/2017 Surgery Anton, Samar L CATH & CORONARY S, MD ANGIOS 2017 Hospital Cardiology Joann Clement (Primary - Encounter MD Krystal Dx);Acute pulmonary 09/21/2017 insufficiency following thoracic surgery (HCC);Acute pulmonary edema (HCC);Pericardial effusion without cardiac tamponade;Pleural effusion on left;S/P pericardial operation 2017 Orders Only General Internal Medicine after 04/29/2017 Immunizations Name Dates Previously Given Next Due Pneumococcal Polysaccharide (Pneumovax) 02/24/2015 Family History Medical History Relation Name Comments Cancer Brother Hypertension Brother Unremarkable Brother Unremarkable Daughter Unremarkable Father Diabetes Maternal Grandmother Heart disease Maternal Grandmother Dementia Mother Mental illness Mother Unremarkable Son Relation Name Status Comments Brother Alive Brother Alive Daughter Alive Father Alive Maternal Grandmother Mother Alive Son Alive Social History Tobacco Use Types Packs/Day Years Used Date Former Smoker 1 40 Smokeless Tobacco: Never Used Alcohol Use Drinks/Week oz/Week Comments No Sex Assigned at Date Recorded Not on file Last Filed Vital Signs Vital Sign Reading Time Taken Blood Pressure 87/51 04/20/2018 11:31 AM CDT Pulse 86 04/20/2018 11:50 AM CDT Temperature 36.8 C (98.3 F) 04/20/2018 11:31 AM CDT Respiratory Rate 18 04/20/2018 12:55 PM CDT Oxygen Saturation 82% 04/20/2018 12:55 PM CDT Inhaled Oxygen Concentration - - Weight 64.9 kg (143 lb) 04/16/2018 5:50 AM CDT Height 165.1 cm (5' 5") 04/16/2018 5:50 AM CDT Body Mass Index 23.8 04/16/2018 5:50 AM CDT Plan of Treatment Health Maintenance Due Date Last Done Comments INFLUENZA VACCINE 07/16/2018 Implants Implanted Type Area Van Cdl Driver Device Expiration Model / Identifier Date Serial / Lot Sut Surg Stl 7 18g 18in Mls Mp M655g - [id number] Jackson/Arthroscop J &J: ETHICON 07/15/2022 [id number] / Implanted: Qty: 2 on 09/09/2017 by Adryan Mares MD y / [id number] Sut Surg Stl 7 18g 18in Mls Mp M655g - [id number] Jackson/Arthroscop J &J: ETHICON 06/15/2022 [id number] / Implanted: Qty: 4 on 09/09/2017 by Adryan Mares MD y / [id number] Sternal Zipfix Ndl Strl .001.20s - [id number] Cardiovascular SYNTHES: SYNTHES 05/15/2022 [id number] / Implanted: Qty: 1 on 09/09/2017 by Adryan Mares MD [facility] / [id number] Sternal Zipfix Ndl Strl .001.20s - [id number] Cardiovascular SYNTHES: SYNTHES 05/15/2022 [id number] / Implanted: Qty: 1 on 09/09/2017 by Adryan Mares MD [facility] / [id number] Cement Bone Smplx Tobra 40gm 6197-9-001 - [id number] Cement/Filler/Adh N/A: AMADOR:AMADOR 10/15/2018 [id number] / Implanted: Qty: 1 on 10/03/2017 by Rafa Rolon MD esive Chest ORTHOPAEDICS / [id number] Procedures Procedure Name Priority Date/Time Associated Diagnosis Comments ERCP,BALLOON SWEEPING 02/28/2018 2:00 PM CDT Biliary obstruction Special Needs (C-ARM) PROCEDURE W/ C-ARM 02/28/2018 2:00 PM CDT Biliary obstruction Special Needs (C-ARM) ERCP,PAPILLOTOMY 02/28/2018 2:00 PM CDT Biliary obstruction Special Needs (C-ARM) REMOVAL/ REINSERTION,DRUG 01/26/2018 1:25 Infection DELIVERY IMPLANT PM CDT NON-BIODEGRADABLE CLOSURE,STERNAL 01/26/2018 1:25 Infection PM CDT US GUIDE, VASCULAR ACCESS Routine 11/15/2017 5:38 Cardiogenic shock Results for this PM 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 INSERT NON-TUNNEL CV CATH Routine 11/15/2017 5:38 Cardiogenic shock Results for this PM 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 IABP INSERTION MCR - IP 11/09/2017 7:10 cp PROC ONLY PM SEAFOOD PACKER IABP INSERTION MCR - IP 10/28/2017 6:50 PE PROC ONLY PM SEAFOOD PACKER CATHETERIZATION,RIGHT 10/28/2017 6:50 PE HEART PM SEAFOOD PACKER INSERTION,DRUG DELIVERY 10/03/2017 2:00 INFECTION IMPLANT NON-BIODEGRADABLE PM SEAFOOD PACKER DEBRIDEMENT/I&D,STERNUM 10/03/2017 2:00 INFECTION PM SEAFOOD PACKER DEBRIDEMENT/I&D,STERNUM 09/30/2017 2:25 STERNAL WOUND PM SEAFOOD PACKER CREATION,PERICARDIAL 09/12/2017 2:00 s/p acb WINDOW PM SEAFOOD PACKER ENDOSCOPIC HARVEST,VEIN 09/09/2017 2:00 CAD PM SEAFOOD PACKER BYPASS,AORTO CORONARY MELE 09/09/2017 2:00 CAD PM SEAFOOD PACKER L CATH & CORONARY ANGIOS 09/09/2017 7:30 CAD AM SEAFOOD PACKER Case Notes 1st case after 04/29/2017 Results RHYTHM STRIP - SCAN (04/23/2018 2:42 PM)Only the most recent of10 resultswithin the time period is included.EKG-SCANNED (04/23/2018 2:42 PM)XR chest 2 views (04/19/2018 9:51 AM)Only the most recent of3 resultswithin the time period is included. Specimen Performing Laboratory GE RIS Narrative FINAL REPORT Chest x-ray Clinical History: Cough, dyspnea Comparison: April 18, 2018 Views: 1 Chest x-ray: The cardiac and mediastinal silhouettes are unchanged and prominent. There is no evidence of a pneumothorax.There is evidence of a tiny rightpleural effusion.There is no evidence of overt cardiac failure.The visible regional skeleton demonstrates separation of the left acromioclavicular joint.There is no evidence of a focal parenchymal opacity. Postprocedural changes are visualized at both cristiana Impression: Decreased pulmonary vascular congestion as compared yesterday's study. Signed: Nevin Reina MD Report Verified Date/Time:04/19/2018 10:09:03 Reading Location: [facility] Radiology Reading Room Procedure Note Interface, External Ris In - 04/19/2018 10:11 AM CDT FINAL REPORT Chest x-ray Clinical History: Cough, dyspnea Comparison: April 18, 2018 Views: 1 Chest x-ray: The cardiac and mediastinal silhouettes are unchanged and prominent. There is no evidence of a pneumothorax. There is evidence of a tiny right pleural effusion. There is no evidence of overt cardiac failure. The visible regional skeleton demonstrates separation of the left acromioclavicular joint. There is no evidence of a focal parenchymal opacity. Postprocedural changes are visualized at both cristiana Impression: Decreased pulmonary vascular congestion as compared yesterday's study. Signed: Nevin Reina MD Report Verified Date/Time: 04/19/2018 10:09:03 Reading Location: [facility] Radiology Reading Room with platelet count + automated diff (04/19/2018 5:33 AM)Only the most recent of102 resultswithin the time period is included. Component Value Ref Range WBC 3.9 (L) 4.0 - 10.0 K/L RBC 2.91 (L) 4.00 - 5.00 M/L Hemoglobin 8.6 (L) 12.0 - 15.0 GM/DL Hematocrit 27.5 (L) 36.0 - 45.0 % MCV 94.3 82.0 - 99.0 fL MCH 29.6 27.0 - 33.0 pg MCHC 31.4 (L) 32.0 - 36.0 GM/DL RDW 16.7 (H) 10.3 - 14.2 % Platelets 132 (L) 150 - 430 K/CU MM MPV 7.4 6.5 - 10.5 fL nRBC 0 0 - 0 /100 WBC % Neutros 81 % % Lymphs 13 % % Monos 5 % % Eos 0 % % Baso 0 % # Neutros 3.20 1.80 - 8.00 K/L # Lymphs 0.50 (L) 1.48 - 4.50 K/L # Monos 0.20 0.00 - 1.30 K/L # Eos 0.00 0.00 - 0.50 K/L # Baso 0.00 0.00 - 0.20 K/L Specimen Performing Laboratory Blood - Arm, Right [facility] [address] [place] [address] CBC with platelet count + automated diff (04/19/2018 5:33 AM)Only the most recent of102 resultswithin the time period is included. Specimen Performing Laboratory Blood Narrative The following orders were created for panel order CBC with platelet count + automated diff. Procedure Abnormality Status --------- ------ CBC with platelet count ...[[id number]]AbnormalFinal result Please view results for these tests on the individual orders. Basic Metabolic Panel (04/19/2018 5:33 AM)Only the most recent of115 resultswithin the time period is included. Component Value Ref Range Sodium 133 (L) 135 - 148 meq/L Potassium 4.4 3.6 - 5.5 meq/L Chloride 90 (L) 98 - 106 meq/L CO2 34 (H) 20 - 29 meq/L BUN 22 10 - 26 mg/dL Creatinine 0.87 0.50 - 1.20 mg/dL Glucose 143 (H) 70 - 110 mg/dL Calcium 8.3 (L) 8.5 - 10.5 mg/dL EGFR 67Comment: ESTIMATED GFR IS NOT ACCURATE mL/min/1.73 sq m CREATININE CLEARANCE IN PREDICTING GLOMERULAR FILTRATION RATE. ESTIMATED GFR IS NOT APPLICABLE FOR DIALYSIS PATIENTS. Specimen Performing Laboratory Blood - Arm, Right [facility] [address] [place] [address] XR chest 1 view portable / bedside (04/18/2018 7:56 AM)Only the most recent of59 resultswithin the time period is included. Specimen Performing Laboratory GE RIS Narrative FINAL REPORT AP chest HISTORY: Dyspnea COMPARISON: 04/16/2018, 03/07/2018 IMPRESSION: Intact skeleton. Cardiac silhouette enlarged. Patchy interstitial and airspace opacities which may reflect edema, pneumonia or a combination thereof. Small effusions. No pneumothorax. Signed: Moshe Eckert MD Report Verified Date/Time:04/18/2018 08:28:38 Reading Location: [address] Ortho Consult Reading Room Procedure Note Interface, External Ris In - 04/18/2018 8:30 AM CDT FINAL REPORT AP chest HISTORY: Dyspnea COMPARISON: 04/16/2018, 03/07/2018 IMPRESSION: Intact skeleton. Cardiac silhouette enlarged. Patchy interstitial and airspace opacities which may reflect edema, pneumonia or a combination thereof. Small effusions. No pneumothorax. Signed: Moshe Eckert MD Report Verified Date/Time: 04/18/2018 08:28:38 Reading Location: [facility] [id number] Ortho Consult Reading Room ECG Interpretation (04/17/2018 3:45 PM)Only the most recent of3 resultswithin the time period is included. Nevin Stroud MD 04/17/20183:45 PM ECG/EKG Interpretation Date/Time: 04/16/2018 6:43 AM Performed by: NEVIN GARLAND Authorized by: NEVIN GARLAND The ECG was interpreted by ED physician. The ECG is interpreted as sinus tachycardia. Rate is tachycardic. Heart rate is [address] segments normal. T waves normal. Troponin I (04/17/2018 5:31 AM)Only the most recent of14 resultswithin the time period is included. Component Value Ref Range Troponin I 0.04 0.00 - 0.15 ng/mL Specimen Performing Laboratory Blood [facility] [address] [place], [place] [id number] Narrative Troponin I (TnI) levels must be interpreted in the context of the presenting symptoms and the clinical findings. Elevated TnI levels indicate myocardial damage, but are not specific for ischemic heart disease. Elevated TnI levels are seen in patients with other cardiac conditions (including myocarditis and congestive heart failure), and slight TnI elevations occur in patients with other conditions, including sepsis, renal failure, acidosis, acute neurological disease, and persistent tachyarrhythmia. Hemoglobin A1c (04/17/2018 5:31 AM)Only the most recent of3 resultswithin the time period is included. Component Value Ref Range Hemoglobin A1C 4.0 (L) 4.3 - 6.1 % Specimen Performing Laboratory Blood [facility] [address] [place], [place] [id number] Hepatic function panel (04/17/2018 5:31 AM)Only the most recent of11 resultswithin the time period is included. Component Value Ref Range Protein, Total 7.1Comment: Specimen slightly hemolyzed 6.0 - 8.5 gm/dL Albumin 3.2 (L)Comment: Specimen slightly hemolyzed 3.5 - 5.0 g/dL Total Bilirubin 1.0Comment: Specimen slightly hemolyzed 0.1 - 1.2 mg/dL Bilirubin, Direct 0.4Comment: Specimen slightly hemolyzed 0.0 - 0.4 mg/dL Alkaline Phosphatase 89 30 - 115 U/L AST 21Comment: Specimen slightly hemolyzed 5 - 40 U/L ALT 15Comment: Specimen slightly hemolyzed 5 - 50 U/L Specimen Performing Laboratory Blood [facility] [address] [place] [address] Lipid panel (04/17/2018 5:31 AM)Only the most recent of4 resultswithin the time period is included. Component Value Ref Range Triglycerides 97Comment: Specimen slightly hemolyzed mg/dL Cholesterol 170Comment: Specimen slightly hemolyzed mg/dL HDL 52 mg/dL LDL Calculated 99 mg/dL Specimen Performing Laboratory Blood [facility] [address] [place] [address] Narrative Triglyceride Reference Range: Low Risk <150 [id number] High Risk 200-499 Very High Risk>=500 Cholesterol Reference Range: Low Risk <200 [id number] High Risk>240 HDL Cholesterol Reference Range: Low Risk >=60 High Risk <40 LDL Cholesterol Reference Range: Optimal<100 Near [id number] Very High >=190 Blood gas, arterial (04/16/2018 4:33 PM)Only the most recent of45 resultswithin the time period is included. Component Value Ref Range pH, Arterial 7.47 (H) 7.35 - 7.45 pCO2, Arterial 46 (H) 35 - 45 mmHg pO2, Arterial 190 (H) 80 - 90 mmHg O2 Sat, Arterial 99.4 (H) 96.0 - 97.0 % HCO3, Arterial 33 (H) 21 - 29 mmol/L Base Excess, Arterial 8.3 (H) -2.0 - 3.0 mmol/L Patient Temperature 37.0 C FIO2 50.0 % Specimen Performing Laboratory Blood, Arterial [facility] [address] [place] [address] Lactic acid, venous, whole blood (04/16/2018 5:54 AM)Only the most recent of7 resultswithin the time period is included. Component Value Ref Range Lactate, Venous 1.8 0.5 - 2.2 mmol/L Specimen Performing Laboratory Blood [facility] [address] [place] [address] Narrative Effective 02/17/2016: Units/Reference Range Change New: 0.5-2.2 mmol/LPrevious: 5-18 mg/dL PT/INR (04/16/2018 5:54 AM)Only the most recent of15 resultswithin the time period is included. Component Value Ref Range Protime 10.9 9.3 - 12.0 seconds INR 1.0 <=5.9 Specimen Performing Laboratory [facility] [address] [place] [address] Narrative RECOMMENDED COUMADIN/WARFARIN INR THERAPY RANGES STANDARD DOSE: 2.0 - 3.0 Includes: PROPHYLAXIS for venous thrombosis, systemic embolization; TREATMENT for venous thrombosis and/or pulmonary embolus. HIGH RISK: Target INR is 2.5-3.5 for patients with mechanical heart valves. B-type natriuretic peptide (04/16/2018 5:54 AM)Only the most recent of9 resultswithin the time period is included. Component Value Ref Range BNP 1861 (H) 0 - 100 pg/mL Specimen Performing Laboratory [facility] [address] [place] [address]37 Lipase (04/16/2018 5:54 AM)Only the most recent of4 resultswithin the time period is included. Component Value Ref Range Lipase 3 (L) 6 - 51 U/L Specimen Performing Laboratory Blood [facility] [address] [place] [address] Creatine Kinase (CK), Total and MB (not available at [facility]) (2017 5:54 AM)Only the most recent of4 resultswithin the time period is included. Component Value Ref Range Total CK 29 25 - 235 U/L CK-MB 2.2 0.0 - 4.9 ng/mL MB Relative Index 7.6 % Specimen Performing Laboratory [facility] [address] [place] [address] Narrative CK-MB Reference Range: <5 Normal 5-10 Borderline >10Abnormal TRANSFUSION SERVICE REPORT - SCAN (03/09/2018 5:41 PM)Only the most recent of29 resultswithin the time period is included.Manual Differential (03/09/2018 4:28 AM)Only the most recent of9 resultswithin the time period is included. Component Value Ref Range Total Counted WBC Morphology Normal Large Platelet Present Polychromasia 1+ few Specimen Performing Laboratory Blood - Arm, Right [address] [address] Magnesium (03/09/2018 4:28 AM)Only the most recent of86 resultswithin the time period is included. Component Value Ref Range Magnesium 1.4 (L) 1.6 - 2.6 mg/dL Specimen Performing Laboratory Blood - Arm, Right [address] [address] Prepare Leuko-Red RBC (03/08/2018 11:54 PM)Only the most recent of14 resultswithin the time period is included. Component Value Ref Range CROSSMATCH COMPATIBLE Unit ABO O Pos UNIT NUMBER [id number] Status TRANSFUSED Blood Bank Product RED BLOOD CELLS PRODUCT CODE [id number] Specimen Performing Laboratory Other [facility] TX CBC (hemogram only) (03/08/2018 6:04 AM)Only the most recent of17 resultswithin the time period is included. Component Value Ref Range WBC 2.9 (L) 3.5 - 10.5 K/L RBC 2.76 (L) 3.93 - 5.22 M/L Hemoglobin 8.1 (L) 11.2 - 15.7 GM/DL Hematocrit 26.2 (L) 34.1 - 44.9 % MCV 94.9 (H) 79.4 - 94.8 fL MCH 29.3 25.6 - 32.2 pg MCHC 30.9 (L) 32.2 - 35.5 GM/DL RDW 20.0 (H) 11.7 - 14.4 % Platelets 89 (L) 150 - 450 K/CU MM MPV 9.8 9.4 - 12.3 fL nRBC 0 0 - 0 /100 WBC Specimen Performing Laboratory Blood - Central Venous Line [address] [address] Transfuse Leuko-Red RBC (03/07/2018 6:36 PM)Only the most recent of17 resultswithin the time period is included.ECG 12 lead (03/07/2018 5:13 PM)Only the most recent of28 resultswithin the time period is included. Specimen Performing Laboratory GE [facility] Narrative Ventricular Rate 70 BPM Atrial Rate 70 BPM P-R Interval 164 ms QRS Duration 96 ms Q-T Interval 444 ms QTC Calculation(Bazett) 479 ms P [place] 21 degrees R [place] 29 degrees T [place] 36 degrees Normal sinus rhythm Normal ECG When compared with ECG of 07-MAR-2018 17:12, Fusion complexes are no longer Present Confirmed by Dianne ROMERO BASANT ([id number]) on 03/07/2018 9:18:15 PM Procedure Note Interface, External Ris In - 03/07/2018 9:18 PM CDT Ventricular Rate 70 BPM Atrial Rate 70 BPM P-R Interval 164 ms QRS Duration 96 ms Q-T Interval 444 ms QTC Calculation(Bazett) 479 ms P [place] 21 degrees R [place] 29 degrees T [place] 36 degrees Normal sinus rhythm Normal ECG When compared with ECG of 07-MAR-2018 17:12, Fusion complexes are no longer Present Confirmed by Dianne ROMERO BASANT ([id number]) on 03/07/2018 9:18:15 PM POC-Glucose meter (03/07/2018 2:51 PM)Only the most recent of122 resultswithin the time period is included. Component Value Ref Range POC-Glucose Meter 187 (H)Comment: TESTED AT [address] 70 - 110 mg/[place] [address] Specimen Performing Laboratory Blood [address] [address] Type and screen, automated (03/07/2018 12:23 PM)Only the most recent of12 resultswithin the time period is included. Component Value Ref Range ABO/RH AUTOMATED (BEAKER) O POSITIVE Ab Scrn NEGATIVE Specimen Performing Laboratory Blood [address] [address] Vitamin B12 and Folate (03/07/2018 5:28 AM)Only the most recent of3 resultswithin the time period is included. Component Value Ref Range Vitamin B12 632 213 - 816 pg/mL Folate 12.4 >=7.0 ng/mL Specimen Performing Laboratory Blood [address] [address] Anthem / lambda light chains, serum (03/07/2018 5:28 AM) Component Value Ref Range Anthem Lt Chain,Free 98.4 (H) 3.3 - 19.4 mg/L Lambda Lt Chain,Free 56.8 (H) 5.7 - 26.3 mg/L Anthem/Lambda,Free 1.73 (H) 0.26 - 1.65 Comment: Free kappa/lambda ratio in serum of normal individuals is 0.26-1.65. Excess production of free kappa or lambda light chains alters the ratio. Ratios outside the normal range are attributed to the presence of monoclonal free light chains. Monoclonal free light chains are found in the serum of patients with multiple myeloma, Waldenstrom's macroglobulinemia, mu-heavy chain disease, primary amyloidosis, light chain deposition disease, monoclonal gammopathy of undetermined significance, and lymphoproliferative disorders. Measurement of free light chain concentration in serum is useful for diagnosis, prognosis, monitoring disease activity and following response to therapy of these disorders. Specimen Performing Laboratory Blood [facility] [address] [place] [address] Narrative Performing Lab [facility] [address] [place] [address] Neftali Ceballos MD, PhD, ELAINE Fibrinogen (03/07/2018 5:28 AM)Only the most recent of5 resultswithin the time period is included. Component Value Ref Range Fibrinogen 353 225 - 434 mg/dl Specimen Performing Laboratory Blood [address] [address] Reticulocyte count (03/07/2018 5:28 AM)Only the most recent of3 resultswithin the time period is included. Component Value Ref Range % Retic 7.0 (H) 0.5 - 1.7 % Specimen Performing Laboratory Blood [address] [address] Narrative Baseline and daily starting prior to initiation of heparin infusion Immunofixation electrophoresis (ANSHU) (03/07/2018 5:28 AM) Component Value Ref Range IgG 2145 (H) 540 - 1822 mg/dL IgA 273 63 - 484 mg/dL IgM 179 22 - 293 mg/dL Serum ANSHU Identification Polyclonal distribution of immunoglobulins. No monoclonal proteins detected. Pathologist: Bri Berman MD (electronic signature) Specimen Performing Laboratory Blood [address] [address] Protein electrophoresis, serum (03/07/2018 5:28 AM) Component Value Ref Range Albumin Fraction 2.1 (L) 3.5 - 5.5 g/dL Alpha 1 Fraction 0.3 0.2 - 0.4 g/dL Alpha 2 Fraction 0.6 0.5 - 0.9 g/dL Beta Fraction 0.7 0.6 - 1.1 g/dL Gamma Globulin Fraction 2.0 (H) 0.7 - 1.7 g/dL Interpretation Polyclonal elevation of immunoglobulins, consistent with chronic inflammation. No monoclonal bands detected. Pathologist: Bri Berman MD (electronic signature) Protein, Total 5.8 (L) 6.0 - 8.3 gm/dL Specimen Performing Laboratory [place] [address] IR PICC Line Placement (03/06/2018 12:49 PM) Specimen Performing Laboratory [facility] Narrative FINAL REPORT Right upper extremity PICC insertion, 03/06/2018. History: Ellie sternal wound infection, need for long-term IV access. 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 [employer] Canning Leader:None. Modality: Sonography and fluoroscopy. Sedation: None. Anesthesia:Two percent Lidocaine without epinephrine. Approach:Right brachial vein Estimated blood loss:< 5 cc. Specimen: None. Fluoroscopy Time: 0.2 min.Dose (Ka,r): 2 mGy. Technique: Informed written consent was obtained. Discussion of risks, benefits, and alternatives were made with the patient. The patient expressed understanding and agreed to proceed.All elements maximal sterile barrier technique was utilized for this procedure, including utilization of sterile scrub solution for skin prep, a large sterile sheet to cover the areas of the patient that were not prepped, and hand hygiene, mask, head covering, and sterile gown for performing radiologist and scrub technologist. The skin was anesthetized with 2% lidocaine.Ultrasound evaluation showed a patent and compressible right brachial vein, which was punctured under direct real-time ultrasound guidance with a micropuncture needle.An ultrasound image was saved to PACS.A 0.018 inch wire was placed through the needle into the right atrium. A 4 [place]an peel-away sheath was placed. The 4 [place]an single-lumen PICC line was measured and cut at 31 cm, and advanced through the sheath, with its distal tip terminating in the cavoatrial junction. The peel-away sheath was removed.The ports were flushed and aspirated easily following placement.The PICC line was secured with suture material. Vital signs were monitored throughout the procedure by a nurse, and remained stable.The patient tolerated the procedure well and left the department in the same condition. Results:Spot radiograph of the chest demonstrates the new right upper extremity PICC line to lie in the expected position with its tip overlying the cavoatrial junction. Impression: Successful, uncomplicated placement of a right upper extremity PICC using sonographic and fluoroscopic guidance. Signed: Anurag Gray MD Report Verified Date/Time:03/06/2018 13:43:32 Reading Location: [place] [address] Angio Body Reading Room Procedure Note Interface, External Ris In - 03/06/2018 1:45 PM CDT FINAL REPORT Right upper extremity PICC insertion, 03/06/2018. History: Ellie sternal wound infection, need for long-term IV access. 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 Pow[employer] Canning Leader: None. Modality: Sonography and fluoroscopy. Sedation: None. Anesthesia: Two percent Lidocaine without epinephrine. Approach: Right brachial vein Estimated blood loss: < 5 cc. Specimen: None. Fluoroscopy Time: 0.2 min. Dose (Ka,r): 2 mGy. Technique: Informed written consent was obtained. Discussion of risks, benefits, and alternatives were made with the patient. The patient expressed understanding and agreed to proceed. All elements maximal sterile barrier technique was utilized for this procedure, including utilization of sterile scrub solution for skin prep, a large sterile sheet to cover the areas of the patient that were not prepped, and hand hygiene, mask, head covering, and sterile gown for performing radiologist and scrub technologist. The skin was anesthetized with 2% lidocaine. Ultrasound evaluation showed a patent and compressible right brachial vein, which was punctured under direct real-time ultrasound guidance with a micropuncture needle. An ultrasound image was saved to PACS. A 0.018 inch wire was placed through the needle into the right atrium. A 4 [place]an peel-away sheath was placed. The 4 [place]an single-lumen PICC line was measured and cut at 31 cm, and advanced through the sheath, with its distal tip terminating in the cavoatrial junction. The peel-away sheath was removed. The ports were flushed and aspirated easily following placement. The PICC line was secured with suture material. Vital signs were monitored throughout the procedure by a nurse, and remained stable. The patient tolerated the procedure well and left the department in the same condition. Results: Spot radiograph of the chest demonstrates the new right upper extremity PICC line to lie in the expected position with its tip overlying the cavoatrial junction. Impression: Successful, uncomplicated placement of a right upper extremity PICC using sonographic and fluoroscopic guidance. Signed: Anurag Gray MD Report Verified Date/Time: 03/06/2018 13:43:32 Reading Location: [place] [address] Angio Body Reading Room Blood culture (03/03/2018 2:02 AM)Only the most recent of17 resultswithin the time period is included. Component Value Ref Range Result No growth in 5 days Specimen Performing Laboratory Blood - Central Venous Line [address] abdomen limited (03/02/2018 11:01 AM)Only the most recent of3 resultswithin the time period is included. Specimen Performing Laboratory [facility] Narrative FINAL REPORT TECHNIQUE: Grayscale ultrasound of the right abdomen. INDICATION: 57-year-old woman with cholecystitis. COMPARISON: Abdomen ultrasound 02/27/2018. FINDINGS: MIDLINE VASCULATURE: The visualized inferior vena cava is patent. Portal vein is patent it measures 1.4 cm in diameter. The maximum visualized aortic diameter is 1.8 cm. LIVER: The liver is mildly enlarged, measuring 18.5 cm. Nodular liver contour, consistent with cirrhosis. No focal lesions. BILIARY: Gallbladder: No gallstones or sludge. The gallbladder wall remains thickened up to 0.7 cm, nonspecific in the setting of cirrhosis. Questionable trace pericholecystic fluid. No gallbladder distention. Negative sonographic [place] sign. Common bile duct measures 0.5 cm, within normal limits. No intrahepatic biliary ductal dilatation. PANCREAS: Incompletely visualized due to overlying bowel gas. PERITONEUM: Small volume ascites. RIGHT KIDNEY: The right kidney measures 9.3 cm in length. No hydronephrosis. No sonographically evident solid mass lesion. IMPRESSION: Cirrhosis with small volume ascites. No focal liver lesions. No specific evidence of acute cholecystitis. Persistent gallbladder wall thickening and questionable trace pericholecystic fluid, nonspecific in the setting of cirrhosis/ascites. Signed: Odalis Hoyt MD Report Verified Date/Time:03/02/2018 11:51:52 Reading Location: [address] Ultrasound Reading Room Procedure Note Interface, External Ris In - 03/02/2018 11:54 AM CDT FINAL REPORT TECHNIQUE: Grayscale ultrasound of the right abdomen. INDICATION: 57-year-old woman with cholecystitis. COMPARISON: Abdomen ultrasound 02/27/2018. FINDINGS: MIDLINE VASCULATURE: The visualized inferior vena cava is patent. Portal vein is patent it measures 1.4 cm in diameter. The maximum visualized aortic diameter is 1.8 cm. LIVER: The liver is mildly enlarged, measuring 18.5 cm. Nodular liver contour, consistent with cirrhosis. No focal lesions. BILIARY: Gallbladder: No gallstones or sludge. The gallbladder wall remains thickened up to 0.7 cm, nonspecific in the setting of cirrhosis. Questionable trace pericholecystic fluid. No gallbladder distention. Negative sonographic [place] sign. Common bile duct measures 0.5 cm, within normal limits. No intrahepatic biliary ductal dilatation. PANCREAS: Incompletely visualized due to overlying bowel gas. PERITONEUM: Small volume ascites. RIGHT KIDNEY: The right kidney measures 9.3 cm in length. No hydronephrosis. No sonographically evident solid mass lesion. IMPRESSION: Cirrhosis with small volume ascites. No focal liver lesions. No specific evidence of acute cholecystitis. Persistent gallbladder wall thickening and questionable trace pericholecystic fluid, nonspecific in the setting of cirrhosis/ascites. Signed: Odalis Hoyt MD Report Verified Date/Time: 03/02/2018 11:51:52 Reading Location: [address] Ultrasound Reading Room Hemoglobin and hematocrit (03/02/2018 9:31 AM)Only the most recent of10 resultswithin the time period is included. Component Value Ref Range Hemoglobin 7.1 (L) 11.2 - 15.7 GM/DL Hematocrit 24.2 (L) 34.1 - 44.9 % Specimen Performing Laboratory [place] [address] Narrative Repeat H/H Amylase (03/01/2018 10:44 PM)Only the most recent of2 resultswithin the time period is included. Component Value Ref Range Amylase 99 25 - 125 U/L Specimen Performing Laboratory Blood - Central Venous Line [address] [address] XR abdomen / KUB 1 view (02/28/2018 7:06 PM)Only the most recent of11 resultswithin the time period is included. Specimen Performing Laboratory [facility] Narrative FINAL REPORT CLINICAL HISTORY: Abdominal pain after ERCP COMPARISON: 02/22/2018 FINDINGS: Two supine views of the abdomen are submitted. The abdominal bowel gas pattern is unobstructed. There is no focus of dilated large or small bowel. Post surgical changes overlie the right lower chest/right upper quadrant, right lower quadrant and left femur. There is vertically oriented curvilinear lucency in the medial upper abdomen, nonspecific but retroperitoneal gas is not definitely excluded. Evaluation with CT the abdomen and pelvis is recommended. There is no acute bony abnormality. The right hemidiaphragm is elevated. Bilateral pleural opacities are similar to previous. IMPRESSION: Vertically oriented curvilinear lucencies overlying the upper abdomen could be artifactual but retroperitoneal gas is not definitely excluded. Better characterization with CT the abdomen and pelvis is recommended. Signed: Rayray Gilman MD Report Verified Date/Time:02/28/2018 19:41:05 Reading Location: [address] Reading Room Procedure Note Interface, External Ris In - 02/28/2018 7:43 PM CDT FINAL REPORT CLINICAL HISTORY: Abdominal pain after ERCP COMPARISON: 02/22/2018 FINDINGS: Two supine views of the abdomen are submitted. The abdominal bowel gas pattern is unobstructed. There is no focus of dilated large or small bowel. Post surgical changes overlie the right lower chest/right upper quadrant, right lower quadrant and left femur. There is vertically oriented curvilinear lucency in the medial upper abdomen, nonspecific but retroperitoneal gas is not definitely excluded. Evaluation with CT the abdomen and pelvis is recommended. There is no acute bony abnormality. The right hemidiaphragm is elevated. Bilateral pleural opacities are similar to previous. IMPRESSION: Vertically oriented curvilinear lucencies overlying the upper abdomen could be artifactual but retroperitoneal gas is not definitely excluded. Better characterization with CT the abdomen and pelvis is recommended. Signed: Rayray Gilman MD Report Verified Date/Time: 02/28/2018 19:41:05 Reading Location: [address] Reading Room RT OF PROCEDURE - ENDOSCOPY URL (02/28/2018 4:00 PM)FL ERCP (02/28/2018 4: 00 PM) Specimen Performing Laboratory [facility] Narrative PROCEDURE PERFORMED IN O.R. - PLEASE REFER TO THE INTRAOPERATIVE REPORT. Procedure Note Interface, External Ris In - 03/07/2018 10:47 AM CDT PROCEDURE PERFORMED IN O.R. - PLEASE REFER TO THE INTRAOPERATIVE REPORT. aPTT (02/28/2018 4:36 AM)Only the most recent of21 resultswithin the time period is included. Component Value Ref Range PTT 29.1 22.5 - 36.0 seconds Specimen Performing Laboratory Blood - Line, [address] [address] Hepatitis C antibody (02/27/2018 2:07 PM) Component Value Ref Range Hepatitis C Ab Reactive (A) Nonreactive Specimen Performing Laboratory Blood - Line, [address] [address] PT/aPTT (02/26/2018 4:38 AM)Only the most recent of7 resultswithin the time period is included. Component Value Ref Range Protime 15.1 (H) 11.7 - 14.7 seconds INR 1.2 <=5.9 PTT 31.3 22.5 - 36.0 seconds Specimen Performing Laboratory Blood - Line, [address] [address] Narrative RECOMMENDED COUMADIN/WARFARIN INR THERAPY RANGES STANDARD DOSE: 2.0 - 3.0 Includes: PROPHYLAXIS for venous thrombosis, systemic embolization; TREATMENT for venous thrombosis and/or pulmonary embolus. HIGH RISK: Target INR is 2.5-3.5 for patients with mechanical heart valves. US thyroid (02/25/2018 7:16 AM) Specimen Performing Laboratory [facility] Narrative FINAL REPORT THYROID ULTRASOUND HISTORY: Thyroid nodule COMPARISON: CT chest of 02/19/2018 TECHNIQUE: Real-time ultrasound of the thyroid gland was performed. FINDINGS: The thyroid gland is normal in size. The right lobe measures 1.2 x 1.6 x 3.5 cm and the left lobe measures 1.5 x 1.2 x 3.1 cm. The thyroid isthmus measures 0.1 cm AP. There is 1.5 x 1.5 x 2.8 mm hypoechoic nodule in the superior aspect of the right lobe of the thyroid gland, of doubtful significance given its small size. No imaging follow-up of this nodule is recommended. No nodule is visualized in the left lobe of the thyroid gland. The questioned left thyroid nodule on the recent CT is probably just due to asymmetry of the lobes of the thyroid gland. IMPRESSION: 1. Tiny right thyroid nodule, of doubtful significance. No imaging follow-up is recommended. 2. No nodule is visualized in the left lobe of the thyroid gland. Signed: Rhett Zavala MD Report Verified Date/Time:02/25/2018 09:29:00 Reading Location: [address] Reading Room Procedure Note Interface, External Ris In - 02/25/2018 9:31 AM CDT FINAL REPORT THYROID ULTRASOUND HISTORY: Thyroid nodule COMPARISON: CT chest of 02/19/2018 TECHNIQUE: Real-time ultrasound of the thyroid gland was performed. FINDINGS: The thyroid gland is normal in size. The right lobe measures 1.2 x 1.6 x 3.5 cm and the left lobe measures 1.5 x 1.2 x 3.1 cm. The thyroid isthmus measures 0.1 cm AP. There is 1.5 x 1.5 x 2.8 mm hypoechoic nodule in the superior aspect of the right lobe of the thyroid gland, of doubtful significance given its small size. No imaging follow-up of this nodule is recommended. No nodule is visualized in the left lobe of the thyroid gland. The questioned left thyroid nodule on the recent CT is probably just due to asymmetry of the lobes of the thyroid gland. IMPRESSION: 1. Tiny right thyroid nodule, of doubtful significance. No imaging follow-up is recommended. 2. No nodule is visualized in the left lobe of the thyroid gland. Signed: Rhett Zavala MD Report Verified Date/Time: 02/25/2018 09:29:00 Reading Location: [address] Transitional Reading Room Gamma Glutamyl Transferase (GGT) (02/24/2018 8:14 AM) Component Value Ref Range GGT 251 (H) 9 - 64 U/L Specimen Performing Laboratory Blood - Line, Arterial [address] [address] ECHOCARDIOGRAM REPORT - SCAN (02/23/2018 4:20 PM)Only the most recent of9 resultswithin the time period is included.Comprehensive metabolic panel (2017 4:09 AM)Only the most recent of6 resultswithin the time period is included. Component Value Ref Range Protein, Total 6.3 6.0 - 8.3 gm/dL Albumin 2.4 (L) 3.5 - 5.0 g/dL Alkaline Phosphatase 335 (H) 40 - 150 U/L Total Bilirubin 1.7 (H) 0.2 - 1.2 mg/dL Sodium 142 136 - 145 meq/L Potassium 3.5 3.5 - 5.1 meq/L Chloride 108 (H) 98 - 107 meq/L CO2 25 22 - 29 meq/L BUN 10 7 - 21 mg/dL Creatinine 0.63 0.57 - 1.25 mg/dL Glucose 105 70 - 105 mg/dL Calcium 8.0 (L) 8.4 - 10.2 mg/dL AST 31 5 - 34 U/L ALT 21 6 - 55 U/L EGFR 97Comment: ESTIMATED GFR IS NOT ACCURATE mL/min/1.73 sq m CREATININE CLEARANCE IN PREDICTING GLOMERULAR FILTRATION RATE. ESTIMATED GFR IS NOT APPLICABLE FOR DIALYSIS PATIENTS. Specimen Performing Laboratory Blood [address] [address] Potassium (02/22/2018 9:44 AM)Only the most recent of23 resultswithin the time period is included. Component Value Ref Range Potassium 4.1 3.5 - 5.1 meq/L Specimen Performing Laboratory Blood - Line, Arterial [address] [address] 2D Echo W/Doppler (Sepsis Protocol) (02/21/2018 9:15 AM)Only the most recent of7 resultswithin the time period is included. Component Value Ref Range Ejection Fraction Specimen Performing Laboratory [facility] ECHO [facility] Narrative Transthoracic Echocardiography Report (TTE) Demographics Patient Name Irma BRIONES of Study02/21/2018 ALEXA [id number] Female Visit Number [id number] Room [id number] Number Date of Birth1960ReferringJustin PENNY Schwarz Physician Age57 year(s)JANET Catalan, Interpreting Francisco Javier Steiner MD RDCSPhysician Procedure Type of Study TTE procedure:2DECHO W DOPPLER(CW/PW/COLOR) (BENJAMIN) Indications:Sepsis protocol. Clinical History CAD, COPD, Emphysema, Hep. C, PE, Cirrhosis, Bipolar, Stroke s/p ACB x 2 (09/09/2017) s/p Pericardial window (09/12/2017) Contrast Medium: Definity. Amount - 2 ml Height: 59 inches Weight: 63.96 kg (141 lbs) BSA: 1.59 m^2 BMI: 28.48 kg/m^2 HR: 90 bpm BP: 121/56 mmHg Summary 1. The left ventricle is chamber size (by vol index) is moderately enlarged. Septal motion is abnormal, likely related to prior cardiac surgery. The other segments are hyperdynamic. LVEF by Lyons's method of disk assessment is increased (>70%). Degree of diastolic dysfunction (LAP assessment) is inconclusive due to mitral annular calcification . 2. RV chamber size appears normal by limited views. Global RV systolic function is mildly reduced. Estimated peak systolic PA pressure is 30-35 mmHg . 3. Mild tricuspid regurgitation. 4. Mild mitral regurgitation. MV gradients are mildly increased in part due to mitral annular calcification (Mean gradient of 5 mmHg). Previous Study In comparison with the prior exam 02/12/2018 the following changes are noted: estimate PA systolic pressures have decreased . Signature Findings Technical Quality: Technically adequate exam. Left Ventricle LV endocardium is adequately visualized with IV ultrasound enhancing agent. The left ventricle is chamber size (by vol index) is moderately enlarged (female - LVED vol -71-80ml/m2) . Septal motion is abnormal, likely related to prior cardiac surgery . The other segments are hyperdynamic.Global LV systolic function hyperdynamic . LVEF by Lyons's method of disk assessment is increased (>70%) . Degree of diastolic dysfunction (LAP assessment) is inconclusive due to mitral annular calcification. Mild concentric LV hypertrophy. Left AtriumLA size is normal (16-34 ml/m2) . Right VentricleRV chamber size appears normal by limited views . Global RV systolic function is mildly reduced . Right Atrium RA cavity size is normal . Aortic Valve Mild AoV cusp calcification. Aortic annulus appears calcified . There is no aortic regurgitation. Mitral Valve [id number] MV leaflet calcification. Mild MV leaflet calcification. Moderate mitral annular calcification. Mild mitral regurgitation. MV gradients are mildly increased in part due to mitral annular calcification . Tricuspid ValveMild TV leaflet thickening. Mild tricuspid regurgitation. Estimated peak systolic PA pressure is 30-35 mmHg . Pulmonic Valve Normal PV structure and function by limited views and Doppler. AortaAortic root size (SInus of Valsalva diameter) is normal . PericardiumNo pericardial effusion is visualized. IVC/SVC/PA/PV/PleuralThe inferior vena cava is adequately visualized. The inferior vena cava size is normal . The estimated RA pressure by IVC dynamics 0-5mmHg . Chambers/Structures Left Atrium LA Volume: 48.79 ml LA Vol. Index: 31 ml/m^2 Left Ventricle LVIDd: 2.85 cm LVIDs: 2.39 cm LV Septum Diastolic: 1.2 cm LV PW Diastolic: 1.2 cmLV FS: 16.1 % LVEDV Lyons's:125.74 ml LVESV Lyons's:17.93 ml LVEDVI: 79 ml/m^2 LVEF Lyons's: 85.7 % LVESVI: 11 ml/m ^2 LVOT Diameter: 1.88 cm Aorta Ao Root S of Yennifer.: 2.29 cm Doppler/Quantitative Measurements Mitral Valve MV Peak E-Wave: 1.35 m/sMV Peak A-Wave: 1.33 m/s E/A Ratio : 1.01 Mean Velocity: 1.09 m/s Peak Gradient: 7.24 mmHg Mean Gradient: 5.02 mmHgDeceleration Time: 214.6 msec Area (continuity): 1.92 cm^2 MV VTI: 42.28 cm MV Colin. Peak: 1.47 m/s Aortic Valve Peak Velocity: 1.85 m/sMean Velocity: 1.26 m/s Peak Gradient: 13.63 mmHgMean Gradient: 7.16 mmHg AV Area (continuity): 2.64 cm^2 AV VTI: 30.75 cm AV DVI: 0.95 LVOT Peak Velocity: 1.62 m/sPeak Gradient: 10.49 mmHg Mean Velocity: 1.09 m/sMean Gradient: 5.44 mmHg LVOT Diameter: 1.88 cm LVOT VTI: 29.22 cm LVOT Area: 2.78 cm^2 LVOT SV:81.07 ml LVOT CO: 7.3 l/min LVOT CI: 4.59 l/min/m^2 Tricuspid Valve TR Velocity: 2.51 m/s TR Gradient: 25.14 mmHg Procedure Note Interface, External Ris In - 02/23/2018 3:49 PM CDT Transthoracic Echocardiography Report (TTE) Demographics Patient Name LY BRIONES Date of Study 02/21/2018 ALEXA Gender Female Visit Number [id number] Race Room Number [id number] Number Date of 1960 Referring PENNY Jones Physician Age 57 year(s) Lead Network Engineer Lucnia De La Cruz [facility] Angledozer Operator Maylin Gaming, Yao Steiner MD RDCS Physician Procedure Type of Study TTE procedure:2DECHO W DOPPLER(CW/PW/COLOR) (BENJAMIN) Indications:Sepsis protocol. Clinical History CAD, COPD, Emphysema, Hep. C, PE, Cirrhosis, Bipolar, Stroke s/p ACB x 2 (09/09/2017) s/p Pericardial window (09/12/2017) Contrast Medium: Definity. Amount - 2 ml Height: 59 inches Weight: 63.96 kg (141 lbs) BSA: 1.59 m^2 BMI: 28.48 kg/m^2 HR: 90 bpm BP: 121/56 mmHg Summary 1. The left ventricle is chamber size (by vol index) is moderately enlarged. Septal motion is abnormal, likely related to prior cardiac surgery. The other segments are hyperdynamic. LVEF by Lyons's method of disk assessment is increased (>70%). Degree of diastolic dysfunction (LAP assessment) is inconclusive due to mitral annular calcification . 2. RV chamber size appears normal by limited views. Global RV systolic function is mildly reduced. Estimated peak systolic PA pressure is 30-35 mmHg . 3. Mild tricuspid regurgitation. 4. Mild mitral regurgitation. MV gradients are mildly increased in part due to mitral annular calcification (Mean gradient of 5 mmHg). Previous Study In comparison with the prior exam 02/12/2018 the following changes are noted: estimate PA systolic pressures have decreased . Signature Findings Technical Quality: Technically adequate exam. Left Ventricle LV endocardium is adequately visualized with IV ultrasound enhancing agent. The left ventricle is chamber size (by vol index) is moderately enlarged (female - LVED vol -71-80ml/m2). Septal motion is abnormal, likely related to prior cardiac surgery . The other segments are hyperdynamic.Global LV systolic function hyperdynamic . LVEF by Lyons's method of disk assessment is increased (>70%) . Degree of diastolic dysfunction (LAP assessment) is inconclusive due to mitral annular calcification. Mild concentric LV hypertrophy. Left Atrium LA size is normal (16-34 ml/m2) . Right Ventricle RV chamber size appears normal by limited views . Global RV systolic function is mildly reduced . Right Atrium RA cavity size is normal . Aortic Valve Mild AoV cusp calcification. Aortic annulus appears calcified . There is no aortic regurgitation. Mitral Valve [id number] MV leaflet calcification. Mild MV leaflet calcification. Moderate mitral annular calcification. Mild mitral regurgitation. MV gradients are mildly increased in part due to mitral annular calcification . Tricuspid Valve Mild TV leaflet thickening. Mild tricuspid regurgitation. Estimated peak systolic PA pressure is 30-35 mmHg . Pulmonic Valve Normal PV structure and function by limited views and Doppler. Aorta Aortic root size (SInus of Valsalva diameter) is normal . Pericardium No pericardial effusion is visualized. IVC/SVC/PA/PV/Pleural The inferior vena cava is adequately visualized. The inferior vena cava size is normal . The estimated RA pressure by IVC dynamics 0-5mmHg . Chambers/Structures Left Atrium LA Volume: 48.79 ml LA Vol. Index: 31 ml/m^2 Left Ventricle LVIDd: 2.85 cm LVIDs: 2.39 cm LV Septum Diastolic: 1.2 cm LV PW Diastolic: 1.2 cm LV FS: 16.1 % LVEDV Lyons's:125.74 ml LVESV Lyons's:17.93 ml LVEDVI: 79 ml/m^2 LVEF Lyons's: 85.7 % LVESVI: 11 ml/m^2 LVOT Diameter: 1.88 cm Aorta Ao Root S of Yennifer.: 2.29 cm Doppler/Quantitative Measurements Mitral Valve MV Peak E-Wave: 1.35 m/s MV Peak A-Wave: 1.33 m/s E/A Ratio: 1.01 Mean Velocity: 1.09 m/s Peak Gradient: 7.24 mmHg Mean Gradient: 5.02 mmHg Deceleration Time: 214.6 msec Area (continuity): 1.92 cm^2 MV VTI: 42.28 cm MV Colin. Peak: 1.47 m/s Aortic Valve Peak Velocity: 1.85 m/s Mean Velocity: 1.26 m/s Peak Gradient: 13.63 mmHg Mean Gradient: 7.16 mmHg AV Area (continuity): 2.64 cm^2 AV VTI: 30.75 cm AV DVI: 0.95 LVOT Peak Velocity: 1.62 m/s Peak Gradient: 10.49 mmHg Mean Velocity: 1.09 m/s Mean Gradient: 5.44 mmHg LVOT Diameter: 1.88 cm LVOT VTI: 29.22 cm LVOT Area: 2.78 cm^2 LVOT SV:81.07 ml LVOT CO: 7.3 l/min LVOT CI: 4.59 l/min/m^2 Tricuspid Valve TR Velocity: 2.51 m/s TR Gradient: 25.14 mmHg Lactic acid, arterial, whole blood (02/21/2018 8:34 AM)Only the most recent of19 resultswithin the time period is included. Component Value Ref Range Lactate, Art 1.2 0.5 - 2.2 mmol/L Specimen Performing Laboratory Blood, Arterial [address] [address] Narrative Effective 02/17/2016: Units/Reference Range Change New: 0.5-2.2 mmol/LPrevious: 5-20 mg/dL Specimen slightly icteric Ammonia (02/21/2018 3:53 AM)Only the most recent of4 resultswithin the time period is included. Component Value Ref Range Ammonia 33 18 - 72 mol/L Specimen Performing Laboratory Blood [address] [address] Catheter Tip Culture (02/19/2018 11:01 PM) Component Value Ref Range Result No growth Specimen Performing Laboratory Other - PICC [address] [address] [address] chest without IV contrast (02/19/2018 6:21 PM)Only the most recent of3 resultswithin the time period is included. Specimen Performing Laboratory [facility] Narrative FINAL REPORT CT scan of the chest, abdomen and pelvis. CLINICAL HISTORY: Sepsis. COMPARISON STUDY: Ultrasound dated February 19, [address] scan of the chest dated January 24, 2018. TECHNIQUE: Contiguous helical slices were acquired through the chest, abdomen and pelvis posted ministration of oral contrast. No intravenous contrast was administered. This exam was performed according to our department dose optimization program which includes automated exposure control, adjustment of the mA and/or kV according to the patient's size and/or use of iterative reconstruction technique. FINDINGS: A 1.3 cm nodule is seen in the left lobe of the thyroid gland. An enlarged right paratracheal lymph node is seen measuring 1.8 cm. This is similar to previous. A right-sided PICC line is identified. Trace pleural fluid is seen. The tracheobronchial tree demonstrates an endotracheal tube in place. A nasogastric tube is also noted. No endobronchial lesions are identified. The pulmonary parenchyma demonstrates groundglass opacities. Emphysema is seen. Bibasilar atelectatic changes are noted. The abdomen and pelvis are limited by lack of contrast. The liver is markedly nodular and cirrhotic in appearance. The gallbladder is distended measuring 4.6 cm in maximal transverse diameter. Gallbladder sludge or stones are seen. The spleen is enlarged measuring 14.9 cm in length. The pancreas, adrenal glands and kidneys are unremarkable. There are no dilated loops of bowel seen to suggest obstruction. A normal appendix is seen. A mesh is seen in the anterior abdomen. Some thickening of the distal colon is noted extending from the descending colon to the rectum. A small amount of free fluid is present. A rectal tube is present. The aorta is normal in caliber. Atherosclerosis is seen. There is no suspicious adenopathy. Bone windows demonstrate degenerative changes. An intramedullary chano is seen in the left femur. An open sternum is seen. IMPRESSION: 1. Mediastinal adenopathy as detailed above. This is stable from as far back as June 30, 2015. 2. Emphysema and groundglass pulmonary opacities with bibasilar atelectasis or consolidation. 3. Nodular, cirrhotic appearing liver with splenomegaly and ascites. 4. Distended gallbladder. Cholecystitis cannot be excluded. The patient had an ultrasound today and correlation with ultrasound findings is recommended. HIDA scan could also be utilized. 5. Thickening of the distal colon for which a colitis cannot be excluded. Signed: Luis Gutierrez MD Report Verified Date/Time:02/19/2018 19:15:21 Reading Location: [facility] B1 C013Y CT Body Reading Room Procedure Note Interface, External Ris In - 02/19/2018 7:17 PM CDT FINAL REPORT CT scan of the chest, abdomen and pelvis. CLINICAL HISTORY: Sepsis. COMPARISON STUDY: Ultrasound dated February 19, [address] scan of the chest dated January 24, 2018. TECHNIQUE: Contiguous helical slices were acquired through the chest, abdomen and pelvis posted ministration of oral contrast. No intravenous contrast was administered. This exam was performed according to our department dose optimization program which includes automated exposure control, adjustment of the mA and/or kV according to the patient's size and/or use of iterative reconstruction technique. FINDINGS: A 1.3 cm nodule is seen in the left lobe of the thyroid gland. An enlarged right paratracheal lymph node is seen measuring 1.8 cm. This is similar to previous. A right-sided PICC line is identified. Trace pleural fluid is seen. The tracheobronchial tree demonstrates an endotracheal tube in place. A nasogastric tube is also noted. No endobronchial lesions are identified. The pulmonary parenchyma demonstrates groundglass opacities. Emphysema is seen. Bibasilar atelectatic changes are noted. The abdomen and pelvis are limited by lack of contrast. The liver is markedly nodular and cirrhotic in appearance. The gallbladder is distended measuring 4.6 cm in maximal transverse diameter. Gallbladder sludge or stones are seen. The spleen is enlarged measuring 14.9 cm in length. The pancreas, adrenal glands and kidneys are unremarkable. There are no dilated loops of bowel seen to suggest obstruction. A normal appendix is seen. A mesh is seen in the anterior abdomen. Some thickening of the distal colon is noted extending from the descending colon to the rectum. A small amount of free fluid is present. A rectal tube is present. The aorta is normal in caliber. Atherosclerosis is seen. There is no suspicious adenopathy. Bone windows demonstrate degenerative changes. An intramedullary chano is seen in the left femur. An open sternum is seen. IMPRESSION: 1. Mediastinal adenopathy as detailed above. This is stable from as far back as June 30, 2015. 2. Emphysema and groundglass pulmonary opacities with bibasilar atelectasis or consolidation. 3. Nodular, cirrhotic appearing liver with splenomegaly and ascites. 4. Distended gallbladder. Cholecystitis cannot be excluded. The patient had an ultrasound today and correlation with ultrasound findings is recommended. HIDA scan could also be utilized. 5. Thickening of the distal colon for which a colitis cannot be excluded. Signed: Luis Gutierrez MD Report Verified Date/Time: 02/19/2018 19:15:21 Reading Location: [facility] B1 C013Y CT Body Reading Room abdomen/pelvis without iv contrast (02/19/2018 6:21 PM) Specimen Performing Laboratory [facility] Narrative FINAL REPORT CT scan of the chest, abdomen and pelvis. CLINICAL HISTORY: Sepsis. COMPARISON STUDY: Ultrasound dated February 19, [address] scan of the chest dated January 24, 2018. TECHNIQUE: Contiguous helical slices were acquired through the chest, abdomen and pelvis posted ministration of oral contrast. No intravenous contrast was administered. This exam was performed according to our department dose optimization program which includes automated exposure control, adjustment of the mA and/or kV according to the patient's size and/or use of iterative reconstruction technique. FINDINGS: A 1.3 cm nodule is seen in the left lobe of the thyroid gland. An enlarged right paratracheal lymph node is seen measuring 1.8 cm. This is similar to previous. A right-sided PICC line is identified. Trace pleural fluid is seen. The tracheobronchial tree demonstrates an endotracheal tube in place. A nasogastric tube is also noted. No endobronchial lesions are identified. The pulmonary parenchyma demonstrates groundglass opacities. Emphysema is seen. Bibasilar atelectatic changes are noted. The abdomen and pelvis are limited by lack of contrast. The liver is markedly nodular and cirrhotic in appearance. The gallbladder is distended measuring 4.6 cm in maximal transverse diameter. Gallbladder sludge or stones are seen. The spleen is enlarged measuring 14.9 cm in length. The pancreas, adrenal glands and kidneys are unremarkable. There are no dilated loops of bowel seen to suggest obstruction. A normal appendix is seen. A mesh is seen in the anterior abdomen. Some thickening of the distal colon is noted extending from the descending colon to the rectum. A small amount of free fluid is present. A rectal tube is present. The aorta is normal in caliber. Atherosclerosis is seen. There is no suspicious adenopathy. Bone windows demonstrate degenerative changes. An intramedullary chano is seen in the left femur. An open sternum is seen. IMPRESSION: 1. Mediastinal adenopathy as detailed above. This is stable from as far back as June 30, 2015. 2. Emphysema and groundglass pulmonary opacities with bibasilar atelectasis or consolidation. 3. Nodular, cirrhotic appearing liver with splenomegaly and ascites. 4. Distended gallbladder. Cholecystitis cannot be excluded. The patient had an ultrasound today and correlation with ultrasound findings is recommended. HIDA scan could also be utilized. 5. Thickening of the distal colon for which a colitis cannot be excluded. Signed: Luis Gutierrez MD Report Verified Date/Time:02/19/2018 19:15:21 Reading Location: [facility] B1 C013Y CT Body Reading Room Procedure Note Interface, External Ris In - 02/19/2018 7:17 PM CDT FINAL REPORT CT scan of the chest, abdomen and pelvis. CLINICAL HISTORY: Sepsis. COMPARISON STUDY: Ultrasound dated February 19, [address] scan of the chest dated January 24, 2018. TECHNIQUE: Contiguous helical slices were acquired through the chest, abdomen and pelvis posted ministration of oral contrast. No intravenous contrast was administered. This exam was performed according to our department dose optimization program which includes automated exposure control, adjustment of the mA and/or kV according to the patient's size and/or use of iterative reconstruction technique. FINDINGS: A 1.3 cm nodule is seen in the left lobe of the thyroid gland. An enlarged right paratracheal lymph node is seen measuring 1.8 cm. This is similar to previous. A right-sided PICC line is identified. Trace pleural fluid is seen. The tracheobronchial tree demonstrates an endotracheal tube in place. A nasogastric tube is also noted. No endobronchial lesions are identified. The pulmonary parenchyma demonstrates groundglass opacities. Emphysema is seen. Bibasilar atelectatic changes are noted. The abdomen and pelvis are limited by lack of contrast. The liver is markedly nodular and cirrhotic in appearance. The gallbladder is distended measuring 4.6 cm in maximal transverse diameter. Gallbladder sludge or stones are seen. The spleen is enlarged measuring 14.9 cm in length. The pancreas, adrenal glands and kidneys are unremarkable. There are no dilated loops of bowel seen to suggest obstruction. A normal appendix is seen. A mesh is seen in the anterior abdomen. Some thickening of the distal colon is noted extending from the descending colon to the rectum. A small amount of free fluid is present. A rectal tube is present. The aorta is normal in caliber. Atherosclerosis is seen. There is no suspicious adenopathy. Bone windows demonstrate degenerative changes. An intramedullary chano is seen in the left femur. An open sternum is seen. IMPRESSION: 1. Mediastinal adenopathy as detailed above. This is stable from as far back as June 30, 2015. 2. Emphysema and groundglass pulmonary opacities with bibasilar atelectasis or consolidation. 3. Nodular, cirrhotic appearing liver with splenomegaly and ascites. 4. Distended gallbladder. Cholecystitis cannot be excluded. The patient had an ultrasound today and correlation with ultrasound findings is recommended. HIDA scan could also be utilized. 5. Thickening of the distal colon for which a colitis cannot be excluded. Signed: Luis Gutierrez MD Report Verified Date/Time: 02/19/2018 19:15:21 Reading Location: [address] Body Reading Room AWAKE AND DROWSY (02/19/2018 3:33 PM)Only the most recent of2 resultswithin the time period is included. Specimen Performing Laboratory [facility] Narrative Date of EE02/19/18 DATE OF REPORT: 02/19/18 ACC: [id number] EEG Number: [id number] Test Location: Inpatient ICU Start time: 15:08 Stop time: 15:30 ICD-10:R41.82 CPT Code: 85498 HISTORY: Ms. 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 DESCRIPTION OF RECORD: During the stimulated state, the background is generally symmetric, continuous, and demonstrate spontaneous variabilities. The frequency spectrum consists primarily of diffuse, moderate amplitude 4-6 Hz theta, 1.5-3 Hz delta, which are further admixed with some diffuse beta. Neither an occipital dominant rhythm, nor an organized frequency amplitude gradient are well demonstrable. At times during stimulation, the slowing becomes more rhythmic with waveforms that have a triphasic morphology. SLEEP:There is no evidence of sleep architectures in this study. SIGNIFICANT VIDEO EVENTS: None SIGNIFICANT ELECTROCARDIOGRAM EVENTS: None HV and photic stimulation are not performed. IMPRESSION: This EEG study is abnormal. There is moderate diffuse slowing of the background rhythms. CLINICAL CORRELATION: Diffuse slowing as seen in this record supports an underlying moderate encephalopathy. The absence of epileptiform abnormality does not necessarily preclude a clinical diagnosis of epilepsy nor provoked seizure for the symptom(s) of interest. Yris Marroquin MD, PhD Neurophysiology Fellow Pola Mahoney MD, MS Attending Neurophysiologist Procedure Note Interface, External Ris In - 02/19/2018 4:40 PM CDT Date of EE02/19/18 DATE OF REPORT: 02/19/18 ACC: [id number] EEG Number: [id number] Test Location: Inpatient ICU Start time: 15:08 Stop time: 15:30 ICD-10: R41.82 CPT Code: 91400 HISTORY: Ms. 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 DESCRIPTION OF RECORD: During the stimulated state, the background is generally symmetric, continuous, and demonstrate spontaneous variabilities. The frequency spectrum consists primarily of diffuse, moderate amplitude 4-6 Hz theta, 1.5-3 Hz delta, which are further admixed with some diffuse beta. Neither an occipital dominant rhythm, nor an organized frequency amplitude gradient are well demonstrable. At times during stimulation, the slowing becomes more rhythmic with waveforms that have a triphasic morphology. SLEEP: There is no evidence of sleep architectures in this study. SIGNIFICANT VIDEO EVENTS: None SIGNIFICANT ELECTROCARDIOGRAM EVENTS: None HV and photic stimulation are not performed. IMPRESSION: This EEG study is abnormal. There is moderate diffuse slowing of the background rhythms. CLINICAL CORRELATION: Diffuse slowing as seen in this record supports an underlying moderate encephalopathy. The absence of epileptiform abnormality does not necessarily preclude a clinical diagnosis of epilepsy nor provoked seizure for the symptom(s) of interest. Yris Marroquin MD, PhD Neurophysiology Fellow Pola Mahoney MD, MS Attending Neurophysiologist Blood gas, venous (02/19/2018 12:51 PM) Component Value Ref Range pH, Akin 7.54 (H) 7.32 - 7.42 pCO2, Akin 27 (L) 41 - 51 mmHg pO2, Akin 165 (H) 25 - 40 mmHg O2 Sat, Akin 99.3 (H) 40.0 - 70.0 % HCO3, Akin 23 21 - 29 mmol/L Base Excess, Akin 0.4 -2.0 - 3.0 mmol/L Patient Temperature 37.0 C FIO2 21.0 % Specimen Performing Laboratory Blood - Line, [address] [address] Sodium, random urine (02/19/2018 9:13 AM)Only the most recent of2 resultswithin the time period is included. Component Value Ref Range Sodium Urine 23 meq/L Specimen Performing Laboratory Urine - Urine, [address] [address] Narrative Reference Range: No Normals Protein, random urine (02/19/2018 9:13 AM)Only the most recent of2 resultswithin the time period is included. Component Value Ref Range Protein, Urine 173 (H) 0 - 14 mg/dL Specimen Performing Laboratory Urine - Urine, [address] [address] Creatinine, random urine (02/19/2018 9:13 AM)Only the most recent of2 resultswithin the time period is included. Component Value Ref Range Creatinine, Ur 95.9 mg/dL Specimen Performing Laboratory Urine - Urine, [address] [address] Narrative Reference Range: No Normals US abdomen complete (02/19/2018 12:30 AM) Specimen Performing Laboratory GE RIS Narrative FINAL REPORT INDICATION: Liver Failure COMPARISON: April 23, 2016 TECHNIQUE:Real-time transabdominal avila scale and color Doppler ultrasound of the abdomen. FINDINGS: Liver: Size: 18.5cm. Echogenicity: Mildly increased Masses/lesions: None. Surface Nodularity: None. Intrahepatic bile ducts: Normal. Common bile duct: 1.3 cm. MPV: 1.0cm. Gallbladder: Stones: None. Sludge: Moderate volume of the gallbladder neck Wall thickness: 0.4 cm. The gallbladder lumen is distended. Pericholecystic fluid: None. Sonographic Newsome's sign: No sonographic Newsome's sign. Pancreas: Head and uncinate process: Unremarkable. Body and tail: Not well-seen. Spleen: Size: 14.6cm. Echogenicity: Unremarkable. Right kidney: Size: 9.9 x 6.0 x 5.7 cm. Parenchyma: Normal echogenicity. No cysts. No stones. Hydronephrosis: None. Left kidney: Size: 10.6 x 4.5 x 4.7 cm. Parenchyma: Normal echogenicity. No cysts. No stones. Hydronephrosis: None. Ascites: None. Regional Vasculature: The visible abdominal aorta, IVC and hepatic veins are patent. Additional findings: None. IMPRESSION: Thickening of the gallbladder wall with internal sludge concerning for cholecystitis. Hepatosplenomegaly. Hepatic steatosis. No focal lesion in the liver parenchyma. Signed: JR Rogers Robert MD Report Verified Date/Time:02/19/2018 03:11:00 Reading Location: [facility] C013Y CT Body Reading Room Procedure Note Interface, External Ris In - 02/19/2018 5:54 AM CDT FINAL REPORT INDICATION: Liver Failure COMPARISON: April 23, 2016 TECHNIQUE: Real-time transabdominal avila scale and color Doppler ultrasound of the abdomen. FINDINGS: Liver: Size: 18.5cm. Echogenicity: Mildly increased Masses/lesions: None. Surface Nodularity: None. Intrahepatic bile ducts: Normal. Common bile duct: 1.3 cm. MPV: 1.0cm. Gallbladder: Stones: None. Sludge: Moderate volume of the gallbladder neck Wall thickness: 0.4 cm. The gallbladder lumen is distended. Pericholecystic fluid: None. Sonographic Newsome's sign: No sonographic Newsome's sign. Pancreas: Head and uncinate process: Unremarkable. Body and tail: Not well-seen. Spleen: Size: 14.6cm. Echogenicity: Unremarkable. Right kidney: Size: 9.9 x 6.0 x 5.7 cm. Parenchyma: Normal echogenicity. No cysts. No stones. Hydronephrosis: None. Left kidney: Size: 10.6 x 4.5 x 4.7 cm. Parenchyma: Normal echogenicity. No cysts. No stones. Hydronephrosis: None. Ascites: None. Regional Vasculature: The visible abdominal aorta, IVC and hepatic veins are patent. Additional findings: None. IMPRESSION: Thickening of the gallbladder wall with internal sludge concerning for cholecystitis. Hepatosplenomegaly. Hepatic steatosis. No focal lesion in the liver parenchyma. Signed: JR Sue, Magnus HOLBROOK Report Verified Date/Time: 02/19/2018 03:11:00 Reading Location: [facility] C013Y CT Body Reading Room Cortisol (02/18/2018 10:20 PM) Component Value Ref Range Cortisol, Total 71.7 (H) 3.7 - 19.4 ug/dL Specimen Performing Laboratory Blood [address] [address] Sputum Culture + Gram Stain (02/18/2018 8:57 PM) Component Value Ref Range Result 1+ Escherichia coli (A) Result <1+ Methicillin resistant Staphylococcus aureus (A) Gram Stain Result 4+ WBCs Gram Stain Result 0-5 epithelial cells Gram Stain Result No organisms seen Specimen Performing Laboratory Sputum - Endotracheal [address] [address] Narrative No Normal respiratory hyun present Organism Antibiotic Method Susceptibility Escherichia coli Amikacin <=2: Susceptible Escherichia coli Ampicillin + Sulbactam 16: Resistant Escherichia coli Aztreonam <=1: Susceptible Escherichia coli Cefepime <=1: Susceptible Escherichia coli Cefoxitin <=4: Susceptible Escherichia coli Ceftazidime <=1: Susceptible Escherichia coli Ceftriaxone <=1: Susceptible Escherichia coli Ertapenem <=0.5: Susceptible Escherichia coli Gentamicin <=1: Susceptible Escherichia coli Levofloxacin 1: Susceptible Escherichia coli Meropenem <=0.25: Susceptible Escherichia coli Piperacillin + Tazobactam <=4: Susceptible Escherichia coli Tetracycline >=16: Resistant Escherichia coli Tobramycin <=1: Susceptible Escherichia coli Trimethoprim + <=20: Susceptible Sulfamethoxazole Methicillin resistant Clindamycin Resistant Staphylococcus aureus Methicillin resistant Erythromycin >=8: Resistant Staphylococcus aureus Methicillin resistant Linezolid 2: Susceptible Staphylococcus aureus Methicillin resistant Oxacillin >=4: Resistant Staphylococcus aureus Methicillin resistant Rifampin <=0.5: Susceptible Staphylococcus aureus Methicillin resistant Tetracycline <=1: Susceptible Staphylococcus aureus Methicillin resistant Trimethoprim + <=10: Susceptible Staphylococcus aureus Sulfamethoxazole Methicillin resistant Vancomycin <=0.5: Susceptible Staphylococcus aureus Urinalysis w/Microscopic (02/18/2018 8:55 PM)Only the most recent of2 resultswithin the time period is included. Component Value Ref Range Color, UA Yellow Clarity, UA Hazy Specific [place], UA 1.012 1.001 - 1.035 pH, UA 8.5 (H) 5.0 - 8.0 Protein, UA 10 mg/dL (A) Negative Glucose, UA Negative Negative Ketones, UA Negative Negative Bilirubin, UA Negative Negative Blood, UA Negative Negative Nitrite, UA Negative Negative Leukocytes, UA Small (A) Negative Urobilinogen, UA >12.0 (H) 0.2 - 1.0 mg/dL RBC, UA 5 /HPF WBC, UA 10 /HPF Specimen Source Urine, [place] Specimen Performing Laboratory Urine - Urine, [address] [address] Urine culture (02/18/2018 8:55 PM)Only the most recent of4 resultswithin the time period is included. Component Value Ref Range Result 20-29,000 col/mL Vancomycin resistant Enterococcus species (A) Gram Stain Result 1+ WBCs Gram Stain Result <1+ gram positive cocci in pairs Gram Stain Result <1+ gram positive cocci in chains Specimen Performing Laboratory Urine - Urine, [address] [address] Narrative <10,000 col/mL Gram Negative rods Organism Antibiotic Method Susceptibility Vancomycin resistant Enterococcus species Ampicillin >=32: Resistant Vancomycin resistant Enterococcus species Linezolid 2: Susceptible Vancomycin resistant Enterococcus species Nitrofurantoin 64: Resistant Vancomycin resistant Enterococcus species Tetracycline >=16: Resistant Vancomycin resistant Enterococcus species Vancomycin >=32: Resistant Vancomycin resistant Enterococcus species Daptomycin 2: Susceptible BCID (02/18/2018 8:54 PM)Only the most recent of2 resultswithin the time period is included. Component Value Ref Range Scan Result Specimen Performing Laboratory Blood [address] [address] Narrative Result comments: KLEBSIELLA PNEUMONIAE DETECTED KPC (a carbapenamase gene) not detected First line therapy: meropenem. De-escalate based on susceptibilities This test does not evaluate for ESBL Other organisms and resistance markers not contained in this PCR panel cannot be excluded and follow-up of traditional culture results is required. This sample was tested at the [facility] using the Data Symmetry Blood Culture ID Panel. This test is FDA cleared for in vitro diagnostic use and has been verified and approved by the [facility] laboratory for clinical use. Reference Range: Not Detected Haptoglobin (02/18/2018 7:04 AM) Component Value Ref Range Haptoglobin 210 14 - 258 mg/dL Specimen Performing Laboratory Blood - Central Venous Line [address] [address] [address] brain without IV contrast (02/18/2018 6:17 AM) Specimen Performing Laboratory GE RIS Narrative FINAL REPORT CT, BRAIN, WITHOUT CONTRAST CLINICAL INDICATION:unresponsive COMPARISON: November 05, 2017 TECHNIQUE:Noncontrast axial CT imaging of the brain and skull. DOSE REDUCTION: Dose modulation, iterative reconstruction, and/or weight-based adjustment of the mA/kV was utilized to reduce the radiation dose to as low as reasonably achievable. FINDINGS: Since stable moderate volume loss. No visible infarct or parenchymal hemorrhage. No abnormal extra-axial fluid. Normal midline position. No hydrocephalus. Calvarium is intact. No paranasal sinus opacification is identified. Included orbital contents are unremarkable. IMPRESSION: Chronic involutional changes without discernible infarct or parenchymal hemorrhage. If there is persistent clinical concern for intracranial pathology, MR examination is recommended for further characterization. Signed: JR Rogers Robert MD Report Verified Date/Time:02/18/2018 06:22:26 Reading Location: [facility] B1 C013Y CT Body Reading Room Procedure Note Interface, External Ris In - 02/18/2018 6:24 AM CDT FINAL REPORT CT, BRAIN, WITHOUT CONTRAST CLINICAL INDICATION: unresponsive COMPARISON: November 05, 2017 TECHNIQUE: Noncontrast axial CT imaging of the brain and skull. DOSE REDUCTION: Dose modulation, iterative reconstruction, and/or weight-based adjustment of the mA/kV was utilized to reduce the radiation dose to as low as reasonably achievable. FINDINGS: Since stable moderate volume loss. No visible infarct or parenchymal hemorrhage. No abnormal extra-axial fluid. Normal midline position. No hydrocephalus. Calvarium is intact. No paranasal sinus opacification is identified. Included orbital contents are unremarkable. IMPRESSION: Chronic involutional changes without discernible infarct or parenchymal hemorrhage. If there is persistent clinical concern for intracranial pathology, MR examination is recommended for further characterization. Signed: JR Sue, Magnus HOLBROOK Report Verified Date/Time: 02/18/2018 06:22:26 Reading Location: [facility] C013Y CT Body Reading Room -Lactic Acid, Arterial (02/18/2018 5:49 AM) Component Value Ref Range POC-Lactic Acid, Arterial 2.7 (H)Comment: TESTED AT [place] [address] 0.4 - 1.3 mmol /L [place] [address] Specimen Performing Laboratory Blood [address] [address] POCT-HEMATOCRIT (02/18/2018 5:45 AM)Only the most recent of4 resultswithin the time period is included. Component Value Ref Range POC-Hematocrit 31 (L)Comment: TESTED AT [place] [address] 36 - 45 % Specimen Performing Laboratory Blood [address] [address] POCT-HEMOGLOBIN (02/18/2018 5:45 AM)Only the most recent of4 resultswithin the time period is included. Component Value Ref Range POC-Hemoglobin 10.5 (L)Comment: TESTED AT [address] 12.0 - 15.0 g/dL [place] [id number] AT [place] [address] Specimen Performing [place] [address] POCT-GLUCOSE (02/18/2018 5:45 AM)Only the most recent of4 resultswithin the time period is included. Component Value Ref Range POC-Glucose 139 (H)Comment: TESTED AT [address] 70 - 110 mg/dL [address] Specimen Performing Laboratory Blood [address] [address] POC-Sodium (02/18/2018 5:45 AM)Only the most recent of4 resultswithin the time period is included. Component Value Ref Range POC-Sodium 136Comment: TESTED AT [place] [address] 135 - 148 meq/L Specimen Performing Laboratory Blood [address] [address] POC-Potassium (02/18/2018 5:45 AM)Only the most recent of4 resultswithin the time period is included. Component Value Ref Range POC-Potassium 3.9Comment: TESTED AT [address] 3.6 - 5.5 meq/L [facility] Specimen Performing [place] [address] POC-Calcium ionized (02/18/2018 5:45 AM)Only the most recent of4 resultswithin the time period is included. Component Value Ref Range POC-Calcium Ionized 1.10 (L)Comment: TESTED AT [address] 1.12 - 1.27 mmol/L [place] [address] Specimen Performing Laboratory Blood [address] [address] POC-Blood gases, arterial (02/18/2018 5:45 AM)Only the most recent of3 resultswithin the time period is included. Component Value Ref Range Temp. Celsius-POC 36.1 FIO2-POC 30Comment: TESTED AT [place] [address] pH, Arterial-POC 7.601 (HH) 7.350 - 7.450 PCO2, Arterial-POC 43.7 35.0 - 45.0 mm Hg PO2, Arterial-POC 95.0 (H) 80.0 - 90.0 mm Hg SO2, Arterial-POC 99.0 (H) 96.0 - 97.0 % HCO3, Arterilal-POC 43.2 (HH) 21.0 - 29.0 meq/L BE, Arterial-POC 21.0 (H) -2.0 - 3.0 meq/L Specimen Performing Laboratory Blood [address] [address] Phosphorus (02/18/2018 3:34 AM)Only the most recent of10 resultswithin the time period is included. Component Value Ref Range Phosphorus 1.3 (LL) 2.3 - 4.7 mg/dL Specimen Performing Laboratory Blood [address] [address] Lactate dehydrogenase (LDH) (02/18/2018 3:34 AM) Component Value Ref Range LDH 430 (H) 125 - 220 U/L Specimen Performing Laboratory Blood [address] [address] Clostridium difficile GDH Toxin (02/13/2018 5:33 PM) Component Value Ref Range C. Difficle Toxin Negative Negative C. Difficile GDH Antigen NegativeComment: No indication of Clostridium Negative difficile infection and no colonization. Discontinue enteric isolation and therapy. Specimen Performing Laboratory Stool - Rectum [address] [address] Narrative Testing performed by [employer] Rapid Cassette Assay.For GDH, published sensitivity of the assay is 98.7% compared to cytotoxicity testing.For Toxin AB, published sensitivity is 87.8% and specificity 99.4% compared to cytotoxicity testing. Verification of kit performance was done by the [facility] prior to clinical use. Testing performed by [employer] Rapid Cassette Assay.For GDH, published sensitivity of the assay is 98.7% compared to cytotoxicity testing.For Toxin AB, published sensitivity is 87.8% and specificity 99.4% compared to cytotoxicity testing. Verification of kit performance was done by the [facility] prior to clinical use. TSH/Free T4 If Indicated (02/12/2018 7:46 AM)Only the most recent of2 resultswithin the time period is included. Component Value Ref Range TSH 6.35 (H) 0.35 - 4.94 uIU/mL Specimen Performing Laboratory Blood [address] [address] T4, free (02/12/2018 7:46 AM) Component Value Ref Range Free T4 1.05 0.70 - 1.48 ng/dL Specimen Performing Laboratory Blood [address] [address] POC-Lactic Acid, Venous (02/12/2018 6:06 AM)Only the most recent of4 resultswithin the time period is included. Component Value Ref Range POC-Lactic Acid, Venous 1.5Comment: TESTED AT [address] 0.9 - 1.7 mmol/L [place] [address] Specimen Performing Laboratory Blood [address] [address] Iron, TIBC, % sat. (without ferritin) (02/11/2018 10:10 AM)Only the most recent of3 resultswithin the time period is included. Component Value Ref Range Iron 173 (H) 40 - 160 ug/dL TIBC 293 250 - 450 ug/dL Iron % Saturation 59 (H) 20 - 55 % Specimen Performing Laboratory Blood [address] [address] Ferritin (02/11/2018 10:10 AM)Only the most recent of3 resultswithin the time period is included. Component Value Ref Range Ferritin 219 5 - 275 ng/mL Specimen Performing Laboratory Blood [address] [address] Vancomycin level, random (01/29/2018 4:42 AM)Only the most recent of7 resultswithin the time period is included. Component Value Ref Range Vancomycin Rm 20.4 ug/mL Specimen Performing Laboratory Blood - Central Venous Line [address] [address] Narrative Reference Range: No Normals Vancomycin level, trough (01/27/2018 4:28 PM)Only the most recent of9 resultswithin the time period is included. Component Value Ref Range Vancomycin Tr 32.6 (HH) 10.0 - 20.0 ug/mL Specimen Performing Laboratory Blood [address] [address] Narrative Before vanc dose AFB culture + smear (01/26/2018 6:15 PM)Only the most recent of3 resultswithin the time period is included. Component Value Ref Range Result No acid-fast bacilli isolated in 42 days AFB Smear No acid fast bacilli seen Specimen Performing Laboratory Tissue - Chest [address] [address] Anaerobic culture (01/26/2018 6:15 PM)Only the most recent of3 resultswithin the time period is included. Component Value Ref Range Result No anaerobes isolated Specimen Performing Laboratory Tissue - Chest [address] [address] Surgically obtained culture + gram stain (01/26/2018 6:15 PM)Only the most recent of3 resultswithin the time period is included. Component Value Ref Range Result <1+ Ellie albicans (A) Gram Stain Result <1+ White blood cells seen Gram Stain Result No organisms seen Specimen Performing Laboratory Tissue - Chest [address] [address] Organism Antibiotic Method Susceptibility Ellie albicans Fluconazole 0.5: Susceptible Ellie albicans Micafungin 0.008: Susceptible Ellie albicans Voriconazole 0.015: Susceptible Wound culture + gram stain (01/25/2018 8:20 AM)Only the most recent of5 resultswithin the time period is included. Component Value Ref Range Result 3+ Same organism has been isolated from cultures(s) of the same body site within 3 days. Repeat identification and susceptibility testing performed only after consultation with the clinical microbiology laboratory. (A) Comment: Refer to previous culture of Coagulase negative Staphylococcus Gram Stain Result <1+ WBCs Gram Stain Result No organisms seen Specimen Performing Laboratory Abscess - Sternum [address] [address] VASCULAR DIAGRAM -SCAN (11/22/2017 12:34 PM)Only the most recent of4 resultswithin the time period is included.Prealbumin (11/20/2017 9:27 AM)Only the most recent of14 resultswithin the time period is included. Component Value Ref Range Prealbumin 14Comment: Specimen slightly hemolyzed 14 - 45 mg/dL Specimen Performing Laboratory Blood - PICC [address] [address] Central Line (11/15/2017 5:38 PM) Narrative Luis Enrique Flood NP 11/15/20172:55 PM Central Line Date/Time: 11/15/2017 2:52 PM Performed by: LUIS ENRIQUE FLOOD Authorized by: LUIS ENRIQUE FLOOD Consent: Verbal consent obtained. Risks and benefits: risks, benefits and alternatives were discussed Consent given by: guardian Patient understanding: patient states understanding of the procedure being performed Patient consent: the patient's understanding of the procedure matches consent given Procedure consent: procedure consent matches procedure scheduled Relevant documents: relevant documents present and verified Test results: test results available and properly labeled Site marked: the operative site was marked Required items: required blood products, implants, devices, and special equipment available Patient identity confirmed: verbally with patient and arm band Time out: Immediately prior to procedure a "time out" was called to verify the correct patient, procedure, equipment, senior support analyst and site/side marked as required. Indications: vascular access Anesthesia: local infiltration Anesthesia: Local Anesthetic: lidocaine 2% without epinephrine Anesthetic total: 5 mL Preparation: skin prepped with 2% chlorhexidine Skin prep agent dried: skin prep agent completely dried prior to procedure Sterile barriers: all five maximum sterile barriers used - cap, mask, sterile gown, sterile gloves, and large sterile sheet Hand hygiene: hand hygiene performed prior to central venous catheter insertion Location details: left internal jugular Patient position: flat Catheter type: triple lumen Catheter size: 7 Fr Pre-procedure: landmarks identified Ultrasound guidance: yes Sterile ultrasound techniques: sterile gel and sterile probe covers were used Number of attempts: 1 Successful placement: yes Post-procedure: line sutured and dressing applied Assessment: blood return through all ports,free fluid flow and placement verified by x-ray Patient tolerance: Patient tolerated the procedure well with no immediate complications Immediate Post-Procedure Note Date/Time: 11/15/2017 2:55 PM Assistants to the procedure: None Pre-procedure diagnosis: acute hypoxemic respiratory failure ,MR Post-procedure diagnosis: acute hypoxemic respiratory failure ,MR Procedures Performed: Central Line Specimens removed: None Estimated blood loss (mL): None Complications: None Type of anesthesia: None Grafts or Implants: None CARDIAC CATH REPORT - SCAN (11/14/2017 4:31 PM)Only the most recent of3 resultswithin the time period is included.Oxygen saturation, measured (2017 4:47 AM)Only the most recent of14 resultswithin the time period is included. Component Value Ref Range O2 Saturation (Measured) 77.4 % Specimen Performing Laboratory Blood - Central Venous Line [address] [address] TSH (11/12/2017 1:52 AM) Component Value Ref Range TSH 3.25 0.35 - 4.94 uIU/mL Specimen Performing Laboratory Blood [address] [address] Creatine Kinase (CK) (11/12/2017 1:50 AM) Component Value Ref Range Total CK 14 (L) 29 - 200 U/L Specimen Performing [place] [address] Potassium-Stat Lab (11/10/2017 3:41 PM)Only the most recent of11 resultswithin the time period is included. Component Value Ref Range Potassium 3.7 3.6 - 5.5 meq/L Specimen Performing Laboratory Blood, Arterial - Line, [place] [address] Clostridium difficile Toxin PCR (11/10/2017 10:18 AM) Component Value Ref Range C.Diff Toxin, PCR Not Detected Not Detected Specimen Performing Laboratory Stool [address] [address] Narrative This qualitative real-time polymerase chain reaction assay detects the tcdB gene, encoded on the C.difficile pathogenicity locus (PaLoc).The product of tcdB , toxin B, is a cytotoxin essential for causing C.difficile-associated disease (CDAD) and is found in virtually all toxigenic C.difficile. This assay is performed for patients suspected of having either community- acquired or nosocomial CDAD.Accordingly, only symptomatic patients should be tested and formed stools will be rejected unless ileus is present (i.e., specified when ordering).Patients may be colonized with toxigenic C.difficile strains not causing active disease; therefore, clinical correlation is needed when deciding how to manage patients with a positive test result. The assay has not been validated as a test of cure as amplifiable nucleic acid may persist after effective treatment; therefore, follow-up testing of a positive result is not recommended. NM Myocard imaging single pharm spect (11/09/2017 3:31 PM) Specimen Performing Laboratory [facility] Narrative FINAL REPORT PROCEDURE: MYOCARDIAL PERFUSION SPECT with regadenoson\\XA9\\ CPT CODE:34030 INDICATION:Preoperative evaluation for mitral valve repair HISTORY:Cardiac risk factors: Hypertension, obesity. Other cardiovascular history: Known CAD status post ACB. Current cardiovascular-related medications: Aspirin, amiloride, pravastatin. PROTOCOL:28.5 mCi of Tc-99m sestamibi was injected iv at expected peak pharmacologic effect, and gated SPECT (tomographic) images were obtained. The resting portion of the study was canceled by the patient's physician. PRELIMINARY STRESS TEST DATA FROM NONINVASIVE CARDIOLOGY: Pharmacologic stress was by 10-second iv infusion of 0.4 mg of regadenoson. Radiotracer was injected 30 seconds after start of stress. Heart rate was 77 beats/min at rest and 78 beats/min (48 % of MPHR) at tracer injection. BP was 126/62 mmHg at rest and 127/58 mmHg at tracer injection. Stress was stopped for predetermined endpoint. The patient experienced dyspnea; treatment was not required. Preliminary ECG evaluation revealed sinus rhythm at rest and no ischemic changes with stress. (Final ECG interpretation and other stress and monitoring data are reported separately by Cardiology.) IMAGING FINDINGS:Study quality is adequate. Post-stress images show mildly decreased radiotracer uptake in the basal to apical anterior, anterolateral, inferolateral, and apical LV. LV volume appears normal. RV volume appears normal. Gated images obtained at rest after stress injection show normal LV wall motion and thickening. QGS LVEF is greater than 70%. IMPRESSION: 1. Equivocal study.2. Appropriate pharmacologic stress. 3. Equivocal myocardial perfusion. Anterior decrease may be due to attenuation artifacts, but underlying perfusion abnormality cannot be excluded on these images. 4. Overall resting LV function is normal with normal wall motion.5. Extracardiac tracer distribution is normal.6. The study of 09/08/2017 showed similar stress distribution but improved resting activity. Signed: Ras Cantrell MD Report Verified Date/Time:11/09/2017 17:52:37 Reading Location: [address] Reading Room Procedure Note Interface, External Ris In - 11/09/2017 5:54 PM [employer] [facility] FINAL REPORT PROCEDURE: MYOCARDIAL PERFUSION SPECT with regadenoson\\XA9\\ CPT CODE: 37782 INDICATION: Preoperative evaluation for mitral valve repair HISTORY: Cardiac risk factors: Hypertension, obesity. Other cardiovascular history: Known CAD status post ACB. Current cardiovascular-related medications: Aspirin, amiloride, pravastatin. PROTOCOL: 28.5 mCi of Tc-99m sestamibi was injected iv at expected peak pharmacologic effect, and gated SPECT (tomographic) images were obtained. The resting portion of the study was canceled by the patient's physician. PRELIMINARY STRESS TEST DATA FROM NONINVASIVE CARDIOLOGY: Pharmacologic stress was by 10-second iv infusion of 0.4 mg of regadenoson. Radiotracer was injected 30 seconds after start of stress. Heart rate was 77 beats/min at rest and 78 beats/min (48 % of MPHR) at tracer injection. BP was 126/62 mmHg at rest and 127/58 mmHg at tracer injection. Stress was stopped for predetermined endpoint. The patient experienced dyspnea; treatment was not required. Preliminary ECG evaluation revealed sinus rhythm at rest and no ischemic changes with stress. (Final ECG interpretation and other stress and monitoring data are reported separately by Cardiology.) IMAGING FINDINGS: Study quality is adequate. Post-stress images show mildly decreased radiotracer uptake in the basal to apical anterior, anterolateral, inferolateral, and apical LV. LV volume appears normal. RV volume appears normal. Gated images obtained at rest after stress injection show normal LV wall motion and thickening. QGS LVEF is greater than 70%. IMPRESSION: 1. Equivocal study. 2. Appropriate pharmacologic stress. 3. Equivocal myocardial perfusion. Anterior decrease may be due to attenuation artifacts, but underlying perfusion abnormality cannot be excluded on these images. 4. Overall resting LV function is normal with normal wall motion. 5. Extracardiac tracer distribution is normal. 6. The study of 09/08/2017 showed similar stress distribution but improved resting activity. Signed: Ras Cantrell MD Report Verified Date/Time: 11/09/2017 17:52:37 Reading Location: [address] Reading Room Treadmill tolerance(Non-Nuclear Treadmill) (11/09/2017 11:13 AM)Only the most recent of2 resultswithin the time period is included. Specimen Performing Laboratory [employer] Narrative Protocol Name Lexiscan Time In Exercise Phase 00:01:00 Max. Systolic BP 127 mmHg Max Diastolic BP 58 mmHg Max Heart Rate 78 BPM Max Predicted Heart Rate 162 BPM Reason For Termination Predetermined end point Reason for Test Pre Op Cardiac Evaluation/Clearance CHF Target HR Formula (220 - Age)*100% Arrhythmias none Resting ECG Normal sinus rhythm ST Changes No Significant Changes Overall Impression Indeterminate due to pharmacological stress Chest Pain none HR Response To Exercise BLUNTED BP Response To Exercise APPROPRIATE RESPONSE ASA Midamor PRAVASTATIN Priomacor CIV 0.25 mcg Confirmed by fellow Sunny Doyle ([id number]) on 11/09/2017 1:07:28 PM Confirmed by MD MADRIGAL JOSEPH P ([id number]) on 11/10/2017 8:30:24 AM Procedure Note Interface, External Ris In - 11/10/2017 8:30 AM [employer] [facility] Protocol Name Lexiscan Time In Exercise Phase 00:01:00 Max. Systolic BP 127 mmHg Max Diastolic BP 58 mmHg Max Heart Rate 78 BPM Max Predicted Heart Rate 162 BPM Reason For Termination Predetermined end point Reason for Test Pre Op Cardiac Evaluation/Clearance CHF Target HR Formula (220 - Age)*100% Arrhythmias none Resting ECG Normal sinus rhythm ST Changes No Significant Changes Overall Impression Indeterminate due to pharmacological stress Chest Pain none HR Response To Exercise BLUNTED BP Response To Exercise APPROPRIATE RESPONSE ASA Midamor PRAVASTATIN Priomacor CIV 0.25 mcg Confirmed by fellow Sunny Doyle ([id number]) on 11/09/2017 1:07:28 PM Confirmed by MD MADRIGAL JOSEPH P ([id number]) on 11/10/2017 8:30:24 AM Transesophageal echo (11/06/2017 2:27 PM) Component Value Ref Range Ejection Fraction Specimen Performing Laboratory [facility] ECHO HEARTLAB MKCKESSON CPACS Narrative Transesophageal Echocardiography Report (SOUTH) Demographics Patient Name Irma BRIONES of Study 11/06/2017 ALEXA [id number] Female Visit Number [id number] Room Number 6103 Number Date of Birth1960Referring Physician Anton Dunn Age57 year(s)Lead Network Engineer Tyrell Bedoya Interpreting Physician SHERON Romo Fellow Meagan Barrera MD Procedure Type of Study SOUTH procedure:TRANSESOPHAGEAL ECHO Indications:Mitral regurgitation. Clinical History COPD,CAD,HTN,PULMN. EMBOLISM Height: 59 inches Weight: 116.57 kg (257 lbs) BSA: 2.05 m^2 BMI: 51.91 kg/m^2 HR: 78 bpm BP: 121/62 mmHg Procedure Informed Consent SOUTH procedure notes The patient was counseled and informed consent was obtained. Topical and intravenous anesthesia was administered. The esophagus was intubated without difficulty. The probe was passed and all standard echocardiographic views were obtained. IV saline contrast echo examination was performed with SOUTH. The patient tolerated the procedure well. Moderate sedation by performing MD using 2.5 mg IV versed and 50 mcg IV fentanyl. . Summary Normal left ventricular chamber size. Normal overall left ventricular systolic function. No evidence of left atrial or left atrial appendage thrombus. No evidence of patent foramen ovale (PFO) with agitated saline contrast . The right ventricular size is grossly normal. The right ventricular function appears mildly reduced. Mitral annular calcification. Both leaflets appear to be tethered. There is severe mitral valve regurgitation with systolic flow reversal in the pulmonary vein. No evidence of vegetations. PASP is at least 45 mm Hg + RAP. No evidence of vegetations. No pericardial effusion is visualized. Signature Findings Rhythm/BPRegular sinus rhythm during the exam. Left Ventricle Normal left ventricular chamber size. Normal overall left ventricular systolic function. Left AtriumNo evidence of left atrial or left atrial appendage thrombus. No evidence of patent foramen ovale (PFO) with agitated saline contrast . Right VentricleThe right ventricular size is grossly normal. The right ventricular function appears mildly reduced. Right Atrium No mass or thrombus is seen in the right atrium. Atrial SeptumNormal interatrial septum by available views. Aortic Valve Trileaflet aortic valve that is mildly thickened and calcified. Mitral Valve Mild MV leaflet thickening. Mitral annular calcification. Both leaflets appear to be tethered. There is severe mitral valve regurgitation with systolic flow reversal in the pulmonary vein. No evidence of vegetations. Tricuspid ValveTV structure is normal. Mild tricuspid regurgitation. No evidence of vegetations. PASP is at least 45 mm Hg + RAP. No evidence of vegetations. Pulmonic Valve The pulmonic valve appears grossly normal with no evidence of vegetations. AortaAortic root size (SInus of Valsalva diameter) is normal . Proximal ascending aorta size is normal . PericardiumNo pericardial effusion is visualized. IVC/SVC/PA/PV/PleuralSystolic flow reversal noted in the left upper pulmonary vein. Procedure Note Interface, External Ris In - 11/06/2017 5:40 PM [employer] Transesophageal Echocardiography Report (SOUTH) Demographics Patient Name LY BRIONES Date of Study 11/06/2017 ALEXA Gender Female Visit Number [id number] Race Unknown Room Number 6103 Number Date of 1960 Referring Physician Anton Dunn Age 57 year(s) Lead Network Engineer Tyrell Bedoya Interpreting Karlos Madrigal, Physician Fellow Meagan Barrera MD Procedure Type of Study SOUTH procedure:TRANSESOPHAGEAL ECHO Indications:Mitral regurgitation. Clinical History COPD,CAD,HTN,PULMN. EMBOLISM Height: 59 inches Weight: 116.57 kg (257 lbs) BSA: 2.05 m^2 BMI: 51.91 kg/m^2 HR: 78 bpm BP: 121/62 mmHg Procedure Informed Consent SOUTH procedure notes The patient was counseled and informed consent was obtained. Topical and intravenous anesthesia was administered. The esophagus was intubated without difficulty. The probe was passed and all standard echocardiographic views were obtained. IV saline contrast echo examination was performed with SOUTH. The patient tolerated the procedure well. Moderate sedation by performing MD using 2.5 mg IV versed and 50 mcg IV fentanyl. . Summary Normal left ventricular chamber size. Normal overall left ventricular systolic function. No evidence of left atrial or left atrial appendage thrombus. No evidence of patent foramen ovale (PFO) with agitated saline contrast . The right ventricular size is grossly normal. The right ventricular function appears mildly reduced. Mitral annular calcification. Both leaflets appear to be tethered. There is severe mitral valve regurgitation with systolic flow reversal in the pulmonary vein. No evidence of vegetations. PASP is at least 45 mm Hg + RAP. No evidence of vegetations. No pericardial effusion is visualized. Signature Findings Rhythm/BP Regular sinus rhythm during the exam. Left Ventricle Normal left ventricular chamber size. Normal overall left ventricular systolic function. Left Atrium No evidence of left atrial or left atrial appendage thrombus. No evidence of patent foramen ovale (PFO) with agitated saline contrast . Right Ventricle The right ventricular size is grossly normal. The right ventricular function appears mildly reduced. Right Atrium No mass or thrombus is seen in the right atrium. Atrial Septum Normal interatrial septum by available views. Aortic Valve Trileaflet aortic valve that is mildly thickened and calcified. Mitral Valve Mild MV leaflet thickening. Mitral annular calcification. Both leaflets appear to be tethered. There is severe mitral valve regurgitation with systolic flow reversal in the pulmonary vein. No evidence of vegetations. Tricuspid Valve TV structure is normal. Mild tricuspid regurgitation. No evidence of vegetations. PASP is at least 45 mm Hg + RAP. No evidence of vegetations. Pulmonic Valve The pulmonic valve appears grossly normal with no evidence of vegetations. Aorta Aortic root size (SInus of Valsalva diameter) is normal . Proximal ascending aorta size is normal . Pericardium No pericardial effusion is visualized. IVC/SVC/PA/PV/Pleural Systolic flow reversal noted in the left upper pulmonary vein. 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 This exam was performed according to our departmental dose optimization program which includes automated exposure control, adjustment of the mA and/or kV according to patient size and/or use of iterative reconstruction technique. COMPARISON: CT head from CTA 03/02/2016, MRI brain 06/08/2016 FINDINGS: There is no acute intracranial hemorrhage or mass effect. No acute territorial infarct is evident on portable CT. Minimal microvascular ischemic changes are chronic appearing. Please note that CT is insensitive for early or small infarcts. Generalized volume loss and vascular calcifications are noted. There is no hydrocephalus or midline shift. An enteric tube is in place with pharyngeal secretions and well aerated sinuses and mastoid air cells. The orbits are unremarkable. The calvarium is intact. IMPRESSION: No acute intracranial hemorrhage or mass effect. Chronic appearing microvascular and involutional changes. If there is strong suspicion for acute ischemia, MRI is advised. 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 This exam was performed according to our departmental dose optimization program which includes automated exposure control, adjustment of the mA and/or kV according to patient size and/or use of iterative reconstruction technique. COMPARISON: CT head from CTA 03/02/2016, MRI brain 06/08/2016 FINDINGS: There is no acute intracranial hemorrhage or mass effect. No acute territorial infarct is evident on portable CT. Minimal microvascular ischemic changes are chronic appearing. Please note that CT is insensitive for early or small infarcts. Generalized volume loss and vascular calcifications are noted. There is no hydrocephalus or midline shift. An enteric tube is in place with pharyngeal secretions and well aerated sinuses and mastoid air cells. The orbits are unremarkable. The calvarium is intact. IMPRESSION: No acute intracranial hemorrhage or mass effect. Chronic appearing microvascular and involutional changes. If there is strong suspicion for acute ischemia, MRI is advised. Signed: Ruth Hodge MD Report Verified Date/Time: 11/05/2017 09:36:39 Reading Location: [facility] Neuro Reading Room chest with high resolution/ild (11/05/2017 9:30 AM) Specimen Performing Laboratory [employer] RIS Narrative FINAL REPORT CT OF THE CHEST, ILD protocol CLINICAL HISTORY:Hypoxemia TECHNIQUE: CT of the chest is performed without intravenous contrast administration. High resolution images of the lung are obtained during inspiration and expiration. This exam was performed according to our departmental dose-optimization program which includes automated exposure control, adjustment of the mA and/or kV according to patient size and/or use of iterative reconstruction technique. COMPARISON FILM:Chest CT from 09/30/2017 DISCUSSION: LINES/TUBES: Partially visualized feeding catheter terminates distal to the gastroesophageal junction. The tip is not visualized. A right-sided PICC terminates in the SVC. LUNGS/AIRWAYS: There is mild mosaic groundglass attenuation throughout the lungs on both the inspiratory and expiratory series. There are scattered areas of dependent atelectasis in the lower lobes bilaterally. There is dependent peribronchovascular thickening. No significant honeycombing, bronchiectasis, or subpleural reticulation. The lung volumes are within normal limits. PLEURA: No significant pleural effusion or pneumothorax. HEART AND MEDIASTINUM: The central pulmonary vasculature is prominent.The right and left pulmonary arteries are enlarged measuring 2.3 and 3 cm, respectively. The main pulmonary artery measures 2.6 cm.Trace pericardial effusion. Prominent mediastinal lymph nodes measure up to 1.4 cm in short axis in the lower right paratracheal station. Prevascular lymph nodes measure up to 1.1 cm. The visualized thyroid is unremarkable for noncontrast CT examination. Scattered atherosclerotic calcifications in the thoracic aorta. BONES AND SOFT TISSUES: Median sternotomy defect is present. Antibiotic beads are seen in the sternal wound. UPPER ABDOMEN: Cirrhotic morphology of the liver. Splenomegaly. IMPRESSION: Pattern and distribution of findings in the lungs suggests volume overload. No specific findings of an interstitial lung disease. Findings of pulmonary hypertension with enlargement of the central pulmonary vasculature. Enlarged mediastinal lymph nodes are likely reactive given the presence of a sternal wound. However, recommend follow-up chest CT after treatment to ensure resolution of lymphadenopathy. Signed: Ric Cruz MD Report Verified Date/Time:11/05/2017 09:47:47 Reading Location: [facility] B1 C013Y CT Body Reading Room Procedure Note Interface, External Ris In - 11/05/2017 9:50 AM [employer] FINAL REPORT CT OF THE CHEST, ILD protocol CLINICAL HISTORY: Hypoxemia TECHNIQUE: CT of the chest is performed without intravenous contrast administration. High resolution images of the lung are obtained during inspiration and expiration. This exam was performed according to our departmental dose-optimization program which includes automated exposure control, adjustment of the mA and/or kV according to patient size and/or use of iterative reconstruction technique. COMPARISON FILM: Chest CT from 09/30/2017 DISCUSSION: LINES/TUBES: Partially visualized feeding catheter terminates distal to the gastroesophageal junction. The tip is not visualized. A right-sided PICC terminates in the SVC. LUNGS/AIRWAYS: There is mild mosaic groundglass attenuation throughout the lungs on both the inspiratory and expiratory series. There are scattered areas of dependent atelectasis in the lower lobes bilaterally. There is dependent peribronchovascular thickening. No significant honeycombing, bronchiectasis, or subpleural reticulation. The lung volumes are within normal limits. PLEURA: No significant pleural effusion or pneumothorax. HEART AND MEDIASTINUM: The central pulmonary vasculature is prominent.The right and left pulmonary arteries are enlarged measuring 2.3 and 3 cm, respectively. The main pulmonary artery measures 2.6 cm. Trace pericardial effusion. Prominent mediastinal lymph nodes measure up to 1.4 cm in short axis in the lower right paratracheal station. Prevascular lymph nodes measure up to 1.1 cm. The visualized thyroid is unremarkable for noncontrast CT examination. Scattered atherosclerotic calcifications in the thoracic aorta. BONES AND SOFT TISSUES: Median sternotomy defect is present. Antibiotic beads are seen in the sternal wound. UPPER ABDOMEN: Cirrhotic morphology of the liver. Splenomegaly. IMPRESSION: Pattern and distribution of findings in the lungs suggests volume overload. No specific findings of an interstitial lung disease. Findings of pulmonary hypertension with enlargement of the central pulmonary vasculature. Enlarged mediastinal lymph nodes are likely reactive given the presence of a sternal wound. However, recommend follow-up chest CT after treatment to ensure resolution of lymphadenopathy. Signed: Ric Cruz MD Report Verified Date/Time: 11/05/2017 09:47:47 Reading Location: [facility] B1 C013Y CT Body Reading Room Respiratory Panel [facility] (11/02/2017 5:31 PM) Component Value Ref Range Human Metapneumovirus Not detected Not detected, Inconclusive Rhinovirus Not detected Not detected, Inconclusive Influenza A Not detected Not detected, Inconclusive Influenza A subtype H1 Not detected Not detected, Inconclusive Influenza A Subtype H3 Not detected Not detected, Inconclusive Influenza A Subtype H1-2009 Not detected Not detected, Inconclusive Influenza B Not detected Not detected, Inconclusive Respiratory Syncytial Virus Not detected Not detected, Inconclusive Parainfluenza Virus 1 Not detected Not detected, Inconclusive Parainfluenza Virus 2 Not detected Not detected, Inconclusive Parainfluenza virus 3 Not detected Not detected, Inconclusive Parainfluenza Virus 4 Not detected Not detected, Inconclusive Adenovirus Not detected Not detected, Inconclusive Coronavirus 229E Not detected Not detected, Inconclusive Coronavirus HKU1 Not detected Not detected, Inconclusive Coronavirus NL63 Not detected Not detected, Inconclusive Coronavirus OC43 Not detected Not detected, Inconclusive Bordetella Pertussis Not detected Not detected, Inconclusive Chlamydophila Pneumoniae Not detected Not detected, Inconclusive Mycoplasma Pneumoniae Not detected Not detected, Inconclusive Specimen Performing Laboratory Nasopharyngeal - Nasopharyngeal Swab [address] [address] Rapid Influenza A&B Screen (11/02/2017 5:31 PM) Component Value Ref Range Rapid Influenza A Antigen Negative Negative, Inconclusive Rapid influenza B Antigen Negative Negative, Inconclusive Specimen Performing Laboratory Nasopharyngeal - Nasopharyngeal Swab [address] [address] POC ACTIVATED CLOTTING TIME (10/31/2017 12:18 PM)Only the most recent of4 resultswithin the time period is included. Component Value Ref Range Activated Clotting Time 131Comment: TESTED AT [address] sec [address] Specimen Performing Laboratory Blood [address] [address] Platelet count (10/29/2017 1:53 AM)Only the most recent of2 resultswithin the time period is included. Component Value Ref Range Platelets 104 (L) 150 - 450 K/CU MM Specimen Performing Laboratory Blood [facility] [address] PERIPHERAL VASCULAR REPORT - SCAN (10/28/2017 1:50 PM)Insert arterial line ( 11:31 AM) Charity Simmons PA-C 10/28/2017 11:31 AM Insert Arterial Line Date/Time: 10/28/2017 2:15 AM Performed by: CHARITY WEEMS Authorized by: CHARITY WEEMS Consent: The procedure was performed in an emergent situation. Patient identity confirmed: provided demographic data and anonymous protocol, patient vented/unresponsive Time out: Immediately prior to procedure a "time out" was called to verify the correct patient, procedure, equipment, senior support analyst and site/side marked as required. Preparation: Patient was prepped and draped in the usual sterile fashion. Indications: multiple ABGs, respiratory failure and hemodynamic monitoring Location: right radial Paul's test normal: yes Needle gauge: 20 Seldinger technique: Seldinger technique used Number of attempts: 1 Post-procedure: line sutured and dressing applied Post-procedure CMS: normal and unchanged Patient tolerance: Patient tolerated the procedure well with no immediate complications Venous doppler legs bilateral (10/28/2017 11:14 AM) Component Value Ref Range Ejection Fraction Specimen Performing Laboratory [facility] ECHO HEARTLAB MKCKESSON CPACS Impressions Right Impression 1. There is no deep venous obstruction in the common femoral, profunda femoral, femoral, popliteal, posterior tibial or peroneal veins. 2. There is no superficial venous obstruction in the great saphenous vein. Left Impression 1. There is no deep venous obstruction in the common femoral, profunda femoral, femoral, popliteal, posterior tibial or peroneal veins. 2. There is no superficial venous obstruction in the great saphenous vein. Conclusions Summary Venous duplex imaging and compression of the bilateral lower extremities were performed. The veins were adequately visualized. The bilateral venous systems were patent and compressible with no evidence of thrombus. The venous Doppler waveforms were pulsatile indicating possible elevated right heart filling pressure . Signature Velocities are measured in cm/s ; Diameters are measured in cm Narrative PV LAB - Lower Extremities DVT Study Demographics Patient Name Irma BRIONES of Study 10/28/2017 ALEXA [id number] Visit Number [id number] Female Accession Number [id number] of 1960 [facility] Room Number 8A08 AfiaNini AugustographThomas Guallpa. Hemanth Mares, S Physician , JADON Ruiz Procedure Type of Study: Veins: Lower Extremities DVT Study, VENOUS DOPPLER LEG, BILATERAL. Indications for Study:Rule out DVT. Patient Status:STAT. Study Location:Portable. Technical Quality:Adequate visualization. Risk Factors History of Disease + +----+ + !Diagnosis!Date!Comments ! + +----+ + !History/Risk !!S/P PEA @02:30 10/28/2017, History of PE, HTN,! !Factors: !!Cirrhosis, COPD, Hepatitis C, Thrombocytopenia , CAD, ! ! !!ACB x 2 09/09/2017 ! + +----+ + Procedure Note Interface, External Ris In - 10/28/2017 1:08 PM [facility] PV LAB - Lower Extremities DVT Study Demographics Patient Name LY BRIONES Date of Study 10/28/2017 ALEXA Age 57 Visit Number [id number] Gender Female Accession Number [id number] Date of 1960 Referring Chraity Room Number 8A08 Physician Nate Lead Network Engineer Nam Melchor Interpreting Sukhi Mares, S Physician , JADON Ruiz Procedure Type of Study: Veins: Lower Extremities DVT Study, VENOUS DOPPLER LEG, BILATERAL. Indications for Study:Rule out DVT. Patient Status:STAT. Study Location:Portable. Technical Quality:Adequate visualization. Risk Factors History of Disease + +----+ + !Diagnosis !Date!Comments ! + +----+ + !History/Risk ! !S/P PEA @02:30 10/28/2017, History of PE, HTN, ! !Factors: ! !Cirrhosis, COPD, Hepatitis C, Thrombocytopenia, CAD, ! ! ! !ACB x 2 09/09/2017 ! + +----+ + Impressions Right Impression 1. There is no deep venous obstruction in the common femoral, profunda femoral, femoral, popliteal, posterior tibial or peroneal veins. 2. There is no superficial venous obstruction in the great saphenous vein. Left Impression 1. There is no deep venous obstruction in the common femoral, profunda femoral, femoral, popliteal, posterior tibial or peroneal veins. 2. There is no superficial venous obstruction in the great saphenous vein. Conclusions Summary Venous duplex imaging and compression of the bilateral lower extremities were performed. The veins were adequately visualized. The bilateral venous systems were patent and compressible with no evidence of thrombus. The venous Doppler waveforms were pulsatile indicating possible elevated right heart filling pressure . Signature Velocities are measured in cm/s ; Diameters are measured in cm Calcium, Ionized (10/28/2017 2:28 AM)Only the most recent of18 resultswithin the time period is included. Component Value Ref Range Calcium, Ion 1.02 (L) 1.12 - 1.27 mmol/L pH, Blood 7.38 Specimen Performing Laboratory Blood [address] [address] [facility] (ABG,NA,K,H&H,GLUCOSE) (10/28/2017 2:26 AM)Only the most recent of10 resultswithin the time period is included. Specimen Performing Laboratory Blood, Arterial Narrative The following orders were created for panel order [facility] (ABG,NA,K,H&H,GLUCOSE). Procedure Abnormality Status --------- ------ Blood gas, arterial[[id number]]AbnormalFinal result Sodium Na-Stat Lab[[id number]] AbnormalFinal result Potassium-Stat Lab[[id number]] NormalFinal result Glucose-Stat Lab[[id number]] AbnormalFinal result HGB/HCT (H&H)-Stat Lab[[id number]] Abnormal Final result Please view results for these tests on the individual orders. Sodium Na-Stat Lab (10/28/2017 2:26 AM)Only the most recent of10 resultswithin the time period is included. Component Value Ref Range Sodium 130 (L) 135 - 148 meq/L Specimen Performing Laboratory Blood, Arterial [address] [address] Glucose-Stat Lab (10/28/2017 2:26 AM)Only the most recent of10 resultswithin the time period is included. Component Value Ref Range Glucose 128 (H) 70 - 110 mg/dL Specimen Performing Laboratory Blood, Arterial [address] [address] HGB/HCT (H&H)-Stat Lab (10/28/2017 2:26 AM)Only the most recent of11 resultswithin the time period is included. Component Value Ref Range Hemoglobin 8.4 (L) 12.0 - 15.0 g/dL Hematocrit 25.0 (L) 36.0 - 45.0 % Specimen Performing Laboratory Blood, Arterial [address] [address] POC-Blood gases, venous (10/28/2017 12:55 AM) Component Value Ref Range Temp. Celsius-POC 36.1 FIO2-POC 100Comment: TESTED AT [address] [address] pH, Venous-POC 7.052 (LL) 7.320 - 7.420 PCO2, Venous-POC 65.6 (H) 41.0 - 51.0 mm Hg PO2, Venous-POC 57.0 (H) 25.0 - 40.0 mm Hg SO2, Venous-POC 76.0 (H) 40.0 - 70.0 % HCO3, Venous-POC 18.5 (L) 21.0 - 29.0 meq/L BE, Venous-POC -12.0 (L) -2.0 - 3.0 meq/L Specimen Performing Laboratory Blood [facility] [address] [place] [address], [place] [address] Transthoracic echo result (10/27/2017 11:41 AM) Component Value Ref Range Ejection Fraction Specimen Performing Laboratory [facility] ECHO HEARTLAB MKCKESSAPOLINAR CPACS Narrative Transthoracic Echocardiography Report (TTE) Demographics Patient NameIrma BRIONES of Study10/27/2017 ALEXA Female Visit [id number] Unknown Room Number Number Date of 1960ReferrMagdalene Walton MD Physician Age 57 year(s)Lead Network Engineer Jennifer Rodriguez Interpreting [facility] Needs to be Pre PhysicianRead Tae Tatum MD FellowJuPENNY Teague Procedure Type of Study TTE procedure(Routine) Indications:Shortness of breath. Clinical History CAD COPD BIPOLAR PD CHF STROKE CANCER SEPSIS ANXIETY CHEST PAIN HGB 8.3 HCT 26.7 % Height: 66 inches Weight: 84.37 kg (186 lbs) BSA: 1.94 m^2 BMI: 30.02 kg/m^2 HR: 73 bpm BP: 108/76 mmHg Summary Very technically difficult study despite the administration of contrast. 1. Normal LV size and function.. LVEF is 55- 60%. 2. Diastology: Unable to comment due to MAC 3. Normal RV size and function 4. MAC is noted. Mild calcific MS. Pk / Mn: 16 / 4 mm Hg. 5. Aortic valve sclerosis is noted. 6. Mild TR. Estimated PASP is 20-25 + clinically estimated RAP Previous Study When compared to previous study, there is no significant difference. Signature Findings Left Ventricle LV endocardium is incompletely visualized despite IV ultrasound enhancing agent. Global LV systolic function normal . Estimated LVEF by qualitative assessment is normal (55-60%) . Degree of diastolic dysfunction (LAP assessment) is inconclusive due to mitral annular calcification . All of the LV segments contract normally . The left ventricle is chamber size (by vol index) is normal (female - LVED vol - 29-61ml/m2). Mild concentric LV hypertrophy. Left AtriumLA is not well visualized, unable to estimate LA size. Right VentricleThe right ventricular chamber size and systolic function are within normal limits. Right Atrium RA size is indeterminate (not well seen). Aortic Valve Moderate AoV cusp thickening. There is no aortic regurgitation. AoV resting dimensionless obstructive index (DOI) is normal, 0.65. Mitral Valve Mild MV leaflet thickening. Mild mitral regurgitation. Moderate mitral annular calcification. Tricuspid ValveTV structure is normal. Mild tricuspid regurgitation. Estimated peak systolic PA pressure is 20-25 mmHg + RA pressure. Pulmonic Valve PV is not well visualized; function appears normal by Doppler visualized. AortaAortic root size (SInus of Valsalva diameter) is normal . PericardiumNo significant pericardial effusion is visualized. IVC/SVC/PA/PV/PleuralThe inferior vena cava is not well visualized. Left Ventricle LVEDV Lyons's:109.57 ml LVESV Lyons's:46.73 ml LVEF Lyons's: 57.4 % LVEDVI: 56 ml/m^2 LVESVI: 24 ml/m^2 Doppler/Quantitative Measurements Mitral Valve MV Peak E-Wave: 1.95 m/s MV Peak A-Wave: 1.03 m/s E/A Ratio: 1.9 Peak Gradient: 15.28 mmHg Decelerat ion Time: 295.1 msec MV Colin. Peak: Tissue Doppler E' Septal Velocity: 0.06 m/s E/E': 19.5 E' Lateral Velocity: 0.1 m/s Aortic Valve Peak Velocity: 1.33 m/sMean Velocity: 0.86 m/s Peak Gradient: 7.12 mmHg Mean Gradient: 3.45 mmHg AV VTI: 22.74 cm AV DVI: 0.65 LVOT Peak Velocity: 0.73 m/s Peak Gradient: 2.11 mmHg Mean Velocity: 0.45 m/s Mean Gradient: 1 mmHg LVOT VTI: 14.83 cm Tricuspid Valve TV Mean Gradient: 8.7 mmHg TR Mean Velocity: 1.42 m/s Procedure Note Interface, External Ris In - 11/13/2017 12:01 PM [employer] Transthoracic Echocardiography Report (TTE) Demographics Patient Name LY BRIONES Date of Study 10/27/2017 ALEXA Gender Female Visit Number [id number] Race Unknown Room Number Number Date of 1960 Referring Manish Walton MD Physician Age 57 year(s) Lead Network Engineer Jennifer Rodriguez Interpreting [facility] Needs to be Pre Physician Read Tae Tatum MD Fellow PENNY Jones Procedure Type of Study TTE procedure(Routine) Indications:Shortness of breath. Clinical History CAD COPD BIPOLAR PD CHF STROKE CANCER SEPSIS ANXIETY CHEST PAIN HGB 8.3 HCT 26.7 % Height: 66 inches Weight: 84.37 kg (186 lbs) BSA: 1.94 m^2 BMI: 30.02 kg/m^2 HR: 73 bpm BP: 108/76 mmHg Summary Very technically difficult study despite the administration of contrast. 1. Normal LV size and function.. LVEF is 55- 60%. 2. Diastology: Unable to comment due to MAC 3. Normal RV size and function 4. MAC is noted. Mild calcific MS. Pk / Mn: 16 / 4 mm Hg. 5. Aortic valve sclerosis is noted. 6. Mild TR. Estimated PASP is 20-25 + clinically estimated RAP Previous Study When compared to previous study, there is no significant difference. Signature Findings Left Ventricle LV endocardium is incompletely visualized despite IV ultrasound enhancing agent. Global LV systolic function normal . Estimated LVEF by qualitative assessment is normal (55-60%) . Degree of diastolic dysfunction (LAP assessment) is inconclusive due to mitral annular calcification . All of the LV segments contract normally . The left ventricle is chamber size (by vol index) is normal (female - LVED vol - 29-61ml/m2). Mild concentric LV hypertrophy. Left Atrium LA is not well visualized, unable to estimate LA size. Right Ventricle The right ventricular chamber size and systolic function are within normal limits. Right Atrium RA size is indeterminate (not well seen). Aortic Valve Moderate AoV cusp thickening. There is no aortic regurgitation. AoV resting dimensionless obstructive index (DOI) is normal, 0.65. Mitral Valve Mild MV leaflet thickening. Mild mitral regurgitation. Moderate mitral annular calcification. Tricuspid Valve TV structure is normal. Mild tricuspid regurgitation. Estimated peak systolic PA pressure is 20-25 mmHg + RA pressure. Pulmonic Valve PV is not well visualized; function appears normal by Doppler visualized. Aorta Aortic root size (SInus of Valsalva diameter) is normal . Pericardium No significant pericardial effusion is visualized. IVC/SVC/PA/PV/Pleural The inferior vena cava is not well visualized. Left Ventricle LVEDV Lyons's:109.57 ml LVESV Lyons's:46.73 ml LVEF Lyons's: 57.4 % LVEDVI: 56 ml/m^2 LVESVI: 24 ml/m^2 Doppler/Quantitative Measurements Mitral Valve MV Peak E-Wave: 1.95 m/s MV Peak A-Wave: 1.03 m/s E/A Ratio: 1.9 Peak Gradient: 15.28 mmHg Deceleration Time: 295.1 msec MV Colin. Peak: Tissue Doppler E' Septal Velocity: 0.06 m/s E/E': 19.5 E' Lateral Velocity: 0.1 m/s Aortic Valve Peak Velocity: 1.33 m/s Mean Velocity: 0.86 m/s Peak Gradient: 7.12 mmHg Mean Gradient: 3.45 mmHg AV VTI: 22.74 cm AV DVI: 0.65 LVOT Peak Velocity: 0.73 m/s Peak Gradient: 2.11 mmHg Mean Velocity: 0.45 m/s Mean Gradient: 1 mmHg LVOT VTI: 14.83 cm Tricuspid Valve TV Mean Gradient: 8.7 mmHg TR Mean Velocity: 1.42 m/s FL esoph swallow funct with cine video (10/11/2017 2:45 PM) Specimen Performing Laboratory GE RIS Narrative FINAL REPORT Modified barium swallow Reason for study: Aspiration Comparison: None available Discussion This exam was performed with speech pathology. The patient swallowed different consistencies of barium and swallowing was observed fluoroscopically. Flash laryngeal penetration is noted with thin barium. No aspiration is seen. No pooling is noted in the piriform sinuses. Impression: No aspiration. Please refer to the report from speech pathology for further information and recommendations. Two lateral fluoroscopic images of the neck were obtained. Fluoroscopy time-1.3 minutes. Signed: Linus Tsai MD Report Verified Date/Time:10/11/2017 19:08:30 Reading Location: [address] Ortho Consult Reading Room Procedure Note Interface, External Ris In - 10/11/2017 7:08 PM [employer] FINAL REPORT Modified barium swallow Reason for study: Aspiration Comparison: None available Discussion This exam was performed with speech pathology. The patient swallowed different consistencies of barium and swallowing was observed fluoroscopically. Flash laryngeal penetration is noted with thin barium. No aspiration is seen. No pooling is noted in the piriform sinuses. Impression: No aspiration. Please refer to the report from speech pathology for further information and recommendations. Two lateral fluoroscopic images of the neck were obtained. Fluoroscopy time-1.3 minutes. Signed: Linus Tsai MD Report Verified Date/Time: 10/11/2017 19:08:30 Reading Location: [facility] C013X Ortho Consult Reading Room renal complete (10/09/2017 6:04 PM) Specimen Performing Laboratory GE RIS Narrative FINAL REPORT Comparison: CT of the abdomen and pelvis, 09/09/2016 Discussion: Sonographic evaluation of the kidneys is performed. The right kidney measures 12.6 cm in length, with cortical thickness of 1.5 cm. The left kidney measures 9.5 cm in length, with cortical thickness of 1.1 cm. There is no focal renal mass, hydronephrosis, or shadowing renal calculus. Bladder could not be identified. IMPRESSION: Normal sonographic evaluation of the kidneys. Signed: Terrance Hernandez MD Report Verified Date/Time:10/09/2017 18:48:43 Reading Location: [facility] C013Y CT Body Reading Room Procedure Note Interface, External Ris In - 10/09/2017 6:50 PM [employer] FINAL REPORT Comparison: CT of the abdomen and pelvis, 09/09/2016 Discussion: Sonographic evaluation of the kidneys is performed. The right kidney measures 12.6 cm in length, with cortical thickness of 1.5 cm. The left kidney measures 9.5 cm in length, with cortical thickness of 1.1 cm. There is no focal renal mass, hydronephrosis, or shadowing renal calculus. Bladder could not be identified. IMPRESSION: Normal sonographic evaluation of the kidneys. Signed: Terrance Hernandez MD Report Verified Date/Time: 10/09/2017 18:48:43 Reading Location: [facility] C013Y CT Body Reading Room Prepare RBC (10/04/2017 11:54 PM)Only the most recent of4 resultswithin the time period is included. Component Value Ref Range CROSSMATCH COMPATIBLE Unit ABO O Pos UNIT NUMBER [id number] Status TRANSFUSED Blood Bank Product RED BLOOD CELLS PRODUCT CODE I3588R52 CROSSMATCH COMPATIBLE Unit ABO O Pos UNIT NUMBER [id number] Status TRANSFUSED Blood Bank Product RED BLOOD CELLS PRODUCT CODE [id number] Specimen Performing Laboratory [facility] [place] Fungus culture + smear (10/03/2017 8:59 PM)Only the most recent of2 resultswithin the time period is included. Component Value Ref Range Result No fungus isolated in 28 days Fungus Smear No fungi seen Specimen Performing Laboratory Tissue - [address] [address] Tissue Exam (10/03/2017 7:45 PM) Component Value Ref Range Case Report Surgical Pathology Report Case: [id number] Authorizing Provider:Rafa Rolon MD Collected: 10/03/2017 1945 Ordering Location: [facility] CV Recovery Room 2 Received: 10/04/2017 0832 Pathologist: Tonny Cope MD Specimen:Sternum, STERNAL BONE DIAGNOSIS PART A STERNUM, DEBRIDEMENT: CARTILAGE AND CONNECTIVE TISSUE WITH FOCAL ACUTE INFLAMMATION. SPECIAL STAINS FOR ACID FAST BACILLI (AFB), FUNGAL ORGANISMS (GMS), AND BACTERIA (BROWN AND BRENN) ARE NEGATIVE. Signing Pathologist Direct Phone Line: [phone] CPT Code(s) 62876, 90788, [id number] CLINICAL HISTORY Infection SPECIMEN SOURCE Sternal bone GROSS DESCRIPTION The specimen is received in a fluidless container labeled with the patient's information and labeled "sternal bone" and consists of two fragments of blood-stained bone measuring 0.6 and 1 cm in greatest dimension, submitted entirely in A1 for decalcification. CG/ew SPECIAL STUDIES The following special studies were performed on this case and the interpretation is incorporated in the diagnostic report above: BLOCK A1- GMS, AFB, BROWN AND BRENN Specimen Performing Laboratory Tissue - Sternum [address] [address] Sodium (10/01/2017 7:47 PM) Component Value Ref Range Sodium 133 (L) 136 - 145 meq/L Specimen Performing Laboratory Blood [address] [address] Manual Differential (10/01/2017 3:40 AM)Only the most recent of3 resultswithin the time period is included. Component Value Ref Range Total Counted WBC Morphology Normal Platelet Morphology Normal RBC Morphology Normal Specimen Performing Laboratory Blood [address] [address] PERMANENT LAB REPORT - SCAN (09/22/2017 12:50 PM)XR chest PA or AP 1 view in dept (09/21/2017 12:58 PM) Specimen Performing Laboratory GE RIS Narrative FINAL REPORT AP chest. HISTORY: Left-sided thoracentesis COMPARISON: 09/20/2015 IMPRESSION: No pneumothorax following thoracentesis. Small effusions. Interstitial edema. Cardiomegaly. Signed: Moshe Eckert MD Report Verified Date/Time:09/21/2017 14:01:26 Reading Location: [facility] Mammo Reading Room Procedure Note Interface, External Ris In - 09/21/2017 2:03 PM SE[employer] P[employer]ER FINAL REPORT AP chest. HISTORY: Left-sided thoracentesis COMPARISON: 09/20/2015 IMPRESSION: No pneumothorax following thoracentesis. Small effusions. Interstitial edema. Cardiomegaly. Signed: Moshe Eckert MD Report Verified Date/Time: 09/21/2017 14:01:26 Reading Location: [facility] Mammo Reading Room thoracentesis (09/21/2017 12:05 PM)Only the most recent of2 resultswithin the time period is included. Specimen Performing Laboratory GE RIS Narrative FINAL REPORT PROCEDURE: Ultrasound-guided thoracentesis INDICATION: 57-year-old woman with left pleural effusion. DESCRIPTION: After obtaining informed written consent, ultrasound scan showed pleural effusion on the left. The overlying skin was prepped and draped in the usual, sterile fashion and local 1% lidocaine anesthesia was administered. A 4 Singaporean catheter was advanced into the pleural cavity and 500 cc of serosanguineous fluid was removed. The catheter was removed without immediate complication. Samples were sent to the lab for holding. IMPRESSION: Uncomplicated ultrasound-guided left thoracentesis with 500 cc fluid removed. Signed: Odalis Hoyt MD Report Verified Date/Time:09/21/2017 12:45:43 Reading Location: [facility] B1 [id number] Ultrasound Reading Room Procedure Note Interface, External Ris In - 09/21/2017 12:47 PM SE[employer] P[employer]ER FINAL REPORT PROCEDURE: Ultrasound-guided thoracentesis INDICATION: 57-year-old woman with left pleural effusion. DESCRIPTION: After obtaining informed written consent, ultrasound scan showed pleural effusion on the left. The overlying skin was prepped and draped in the usual, sterile fashion and local 1% lidocaine anesthesia was administered. A 4 Singaporean catheter was advanced into the pleural cavity and 500 cc of serosanguineous fluid was removed. The catheter was removed without immediate complication. Samples were sent to the lab for holding. IMPRESSION: Uncomplicated ultrasound-guided left thoracentesis with 500 cc fluid removed. Signed: Odalis Hoyt MD Report Verified Date/Time: 09/21/2017 12:45:43 Reading Location: [address] Ultrasound Reading Room chest (09/21/2017 12:05 PM) Specimen Performing Laboratory GE RIS Narrative FINAL REPORT TECHNIQUE: Focused grayscale ultrasound of the chest to assess pleural effusions. INDICATION: 57-year-old woman with pleural effusions. COMPARISON: Chest CT from earlier same date. IMPRESSION: Bilateral pleural effusions, trace on the right and small on the left. Thoracentesis will be subsequently performed on the left side. Signed: Odalis Hoyt MD Report Verified Date/Time:09/21/2017 12:43:52 Reading Location: [address] Ultrasound Reading Room Procedure Note Interface, External Ris In - 09/21/2017 12:46 PM SE[employer] P[employer]ER FINAL REPORT TECHNIQUE: Focused grayscale ultrasound of the chest to assess pleural effusions. INDICATION: 57-year-old woman with pleural effusions. COMPARISON: Chest CT from earlier same date. IMPRESSION: Bilateral pleural effusions, trace on the right and small on the left. Thoracentesis will be subsequently performed on the left side. Signed: Odalis Hoyt MD Report Verified Date/Time: 09/21/2017 12:43:52 Reading Location: [address] Ultrasound Reading Room chest for pulmonary embolus (09/21/2017 6:20 AM) Specimen Performing Laboratory GE RIS Narrative FINAL REPORT CT scan of the chest with pulmonary embolism protocol. Clinical History: Chest pain, acute, PE suspected, high pretest prob. Comparison Study: Chest x-ray dated September 20, [address] scan of the chest dated April 23, 2016. Technique: Pre-intravenous contrast localization images were acquired followed by contiguous helical slices through the thorax post administration of intravenous contrast using a timed bolus fashion. This exam was performed according to our department dose optimization program which includes automated exposure control, adjustment of the mA and/or kV according to the patient's size and/or use of iterative reconstruction technique. Findings: There is no evidence of pulmonary embolism. Enlargement of the main, right and left pulmonary arteries is seen suggestive of pulmonary hypertension. They measure 3.1, 3.0 and 3.3 cm respectively. The mediastinum demonstrates evidence of adenopathy including a 2.1 x 3.0 cm (previously 1.6 x 2.1 cm) right tracheobronchial angle lymph node and several right paratracheal lymph nodes measuring up to 2.1 cm (previously 1.1 cm) in short axis. A new 1.9 x 2.9 cm subcarinal lymph node is seen. There is a 1.5 cm prevascular lymph node which previously measured 6 mm. Other prominent nodes are seen. A pericardial effusion is seen measuring up to 1.8 cm. There is a trace right-sided pleural effusion and a small to moderate left-sided pleural effusion. The visualized portions of the upper abdomen demonstrate nodularity of the hepatic contour and a prominent spleen, partially visualized. The tracheobronchial tree is clear with no endobronchial lesions. The pulmonary parenchyma demonstrates groundglass opacities in the lung apices. Areas of mosaic attenuation are seen throughout. There is extensive atelectasis or consolidation particularly in the left lung base. Focal groundglass opacities are seen in the right upper lobe measuring up to 2.9 x 2.1 cm. Bone windows demonstrate no evidence of fracture or malalignment. Degenerative and posttraumatic changes are noted. Impression: 1. No evidence of pulmonary embolism. 2. Evidence of pulmonary hypertension. 3. Stable adenopathy of uncertain etiology. Both benign and malignant etiologies would be the differential. 3. Trace right-sided mild to moderate left-sided pleural effusion with adjacent atelectasis or consolidation four. Other patchy groundglass opacities and areas of cystic attenuation with a ground glass opacities most pronounced in the right upper lobe. This could be related to volume overload, infectious or inflammatory in nature but should be followed up to exclude other etiologies. 4. Nodular hepatic contour with prominent spleen. 5. Small pericardial effusion. Signed: Luis Gutierrez MD Report Verified Date/Time:09/21/2017 07:39:27 Reading Location: [facility] Diagnostic Imaging Reading Room - [place] [id number] Procedure Note Interface, External Ris In - 09/25/2017 10:06 AM [facility] [facility] FINAL REPORT CT scan of the chest with pulmonary embolism protocol. Clinical History: Chest pain, acute, PE suspected, high pretest prob. Comparison Study: Chest x-ray dated September 20, [address] scan of the chest dated April 23, 2016. Technique: Pre-intravenous contrast localization images were acquired followed by contiguous helical slices through the thorax post administration of intravenous contrast using a timed bolus fashion. This exam was performed according to our department dose optimization program which includes automated exposure control, adjustment of the mA and/or kV according to the patient's size and/or use of iterative reconstruction technique. Findings: There is no evidence of pulmonary embolism. Enlargement of the main, right and left pulmonary arteries is seen suggestive of pulmonary hypertension. They measure 3.1, 3.0 and 3.3 cm respectively. The mediastinum demonstrates evidence of adenopathy including a 2.1 x 3.0 cm (previously 1.6 x 2.1 cm) right tracheobronchial angle lymph node and several right paratracheal lymph nodes measuring up to 2.1 cm (previously 1.1 cm) in short axis. A new 1.9 x 2.9 cm subcarinal lymph node is seen. There is a 1.5 cm prevascular lymph node which previously measured 6 mm. Other prominent nodes are seen. A pericardial effusion is seen measuring up to 1.8 cm. There is a trace right-sided pleural effusion and a small to moderate left-sided pleural effusion. The visualized portions of the upper abdomen demonstrate nodularity of the hepatic contour and a prominent spleen, partially visualized. The tracheobronchial tree is clear with no endobronchial lesions. The pulmonary parenchyma demonstrates groundglass opacities in the lung apices. Areas of mosaic attenuation are seen throughout. There is extensive atelectasis or consolidation particularly in the left lung base. Focal groundglass opacities are seen in the right upper lobe measuring up to 2.9 x 2.1 cm. Bone windows demonstrate no evidence of fracture or malalignment. Degenerative and posttraumatic changes are noted. Impression: 1. No evidence of pulmonary embolism. 2. Evidence of pulmonary hypertension. 3. Stable adenopathy of uncertain etiology. Both benign and malignant etiologies would be the differential. 3. Trace right-sided mild to moderate left-sided pleural effusion with adjacent atelectasis or consolidation four. Other patchy groundglass opacities and areas of cystic attenuation with a ground glass opacities most pronounced in the right upper lobe. This could be related to volume overload, infectious or inflammatory in nature but should be followed up to exclude other etiologies. 4. Nodular hepatic contour with prominent spleen. 5. Small pericardial effusion. Signed: Luis Gutierrez MD Report Verified Date/Time: 09/21/2017 07:39:27 Reading Location: [facility] Diagnostic Imaging Reading Room - [place] [address] abdomen 2 views flat and upright (09/20/2017 9:13 AM) Specimen Performing Laboratory GE RIS Narrative FINAL REPORT Abdomen one view Comparison: November 12, 2015 Reason for exam:abdominal pain, please also check upright Findings: Bowel gas pattern is nonobstructive, nonspecific. No free air is identified. Note is made of mesh material in the right lower quadrant. There is also apparent hepatosplenomegaly. Osseous structures demonstrate mild degenerative changes. Left femoral hardware is partially imaged. Signed: Odilia Gordon MD Report Verified Date/Time:09/20/2017 09:22:12 Reading Location: [facility] Radiology Reading Room Procedure Note Interface, External Ris In - 09/20/2017 9:24 AM [employer] FINAL REPORT Abdomen one view Comparison: November 12, 2015 Reason for exam: abdominal pain, please also check upright Findings: Bowel gas pattern is nonobstructive, nonspecific. No free air is identified. Note is made of mesh material in the right lower quadrant. There is also apparent hepatosplenomegaly. Osseous structures demonstrate mild degenerative changes. Left femoral hardware is partially imaged. Signed: Odilia Gordon MD Report Verified Date/Time: 09/20/2017 09:22:12 Reading Location: [facility] Radiology Reading Room Body fluid culture + gram stain (09/13/2017 3:19 PM) Component Value Ref Range Result No growth Gram Stain Result 1+ WBCs Gram Stain Result No organisms seen Specimen Performing Laboratory Body Fluid - Pleural, [address] [address] pH, body fluid (09/13/2017 3:18 PM) Component Value Ref Range pH, Body Fluid 7.64 Specimen Performing Laboratory Body Fluid - Pleural, [address] [address] Glucose, body fluid (09/13/2017 3:18 PM) Component Value Ref Range Glucose, Body Fluid 104 70 - 110 mg/dL Specimen Performing Laboratory Body Fluid - Pleural, [address] [address] Narrative Absence of reference range indicates that normals have not been defined. Assay performance has not been validated for this type of specimen. Body fluid cell count with differential (09/13/2017 3:18 PM) Component Value Ref Range Appearance Bloody (A) Clear Color Red (A) Colorless, Straw RBCs 900247 (H) <=1 /cu mm Adjusted WBC Count 734 (H) <=5 /cu mm Lining Cells 22 (H) <=1 /cu mm % Segs 39 % % Lymphs 10 % % Monos 51 % % Eos 0 % % Baso 0 % Container Body Fluid EDTA Tube Specimen Performing Laboratory Body Fluid - Pleural, [address] [address] Protein, body fluid (09/13/2017 3:18 PM) Component Value Ref Range Protein, Fluid 3.3 Light's criteria identifies effusions if one or more are present: Pleural to serum protein ratio of more than 0.5; Pleural to Serum LDH of more than 0.6; Pleural LDH of more than two third of upper serum reference limit g/dL Specimen Performing Laboratory Body Fluid - Pleural, [address] [address] Narrative Absence of reference range indicates that normals have not been defined. Assay performance has not been validated for this type of specimen. Lactate dehydrogenase (LDH), body fluid (09/13/2017 3:18 PM) Component Value Ref Range LDH, Fluid 486 Light's criteria identifies effusions if one or more are present: Pleural to serum protein ratio of more than 0.5; Pleural to serum LDH ratio of more than 0.6; Pleural LDH more than two third of upper serum reference limit U/L Specimen Performing Laboratory Body Fluid - Pleural, [address] [address] Narrative Absence of reference range indicates that normals have not been defined. Assay performance has not been validated for this type of specimen. Albumin, body fluid (09/13/2017 3:18 PM) Component Value Ref Range Albumin, Fluid 1.9 gm/dL Specimen Performing Laboratory Body Fluid - Pleural, [address] [address] Narrative Reference Range:No Normals Assay performance has not been validated for this type of specimen. Prepare PLT (09/10/2017 11:54 PM) Component Value Ref Range Unit ABO O Pos UNIT NUMBER [id number] Status TRANSFUSED Blood Bank Product PLATELETS PRODUCT CODE F1092V91 Unit ABO O Pos UNIT NUMBER [id number] Status TRANSFUSED Blood Bank Product PLATELETS PRODUCT CODE M6491O96 Specimen Performing Laboratory [facility] [place] Prepare plasma (09/10/2017 11:54 PM) Component Value Ref Range Unit ABO B Pos UNIT NUMBER [id number] Status TRANSFUSED Blood Bank Product FFP PRODUCT CODE Q4846J03 Unit ABO B Pos UNIT NUMBER [id number] Status TRANSFUSED Blood Bank Product FFP PRODUCT CODE O0984W12 Unit ABO B Pos UNIT NUMBER [id number] Status RETURNED FROM ISSUE Blood Bank Product FFP PRODUCT CODE K1539E82 Unit ABO O Pos UNIT NUMBER [id number] Status RETURNED FROM ISSUE Blood Bank Product FFP PRODUCT CODE Q4349F28 Specimen Performing Laboratory [facility] [place] Prepare cryoprecipitate (09/10/2017 11:54 PM) Component Value Ref Range Unit ABO O Pos UNIT NUMBER [id number] Status TRANSFUSED Blood Bank Product CRYOPRECIPITATE PRODUCT CODE P5585K09 Unit ABO O Pos UNIT NUMBER [id number] Status RETURNED FROM ISSUE Blood Bank Product CRYOPRECIPITATE PRODUCT CODE [id number] Specimen Performing Laboratory [facility] [place] Platelet Aggregation: Function Screen (09/10/2017 4:09 AM) Component Value Ref Range Weak ADP 81 60 - 91 % Plt. Function Screen Interpretation 60-100% indicates normal platelet function Pathologist: Logan Ortiz M.D. (electonic signature) Platelets 164 150 - 450 K/CU MM Specimen Performing Laboratory Blood [address] [address] Narrative for patients on clopidogrel in past two weeks Glucose-STAT (09/10/2017 4:09 AM) Component Value Ref Range Glucose 168 (H) 70 - 105 mg/dL Specimen Performing Laboratory Blood [address] [address] Thromboelastograph (TEG) (09/09/2017 5:12 PM)Only the most recent of2 resultswithin the time period is included. Component Value Ref Range TEG Activated Clotting Time 5.3 4.0 - 7.0 minutes TEG Fibrinogen Activity 70.6 61.0 - 73.0 degrees TEG Platelet Aggregation 63.7 55.0 - 65.0 MM TEG Fibrinolysis 6.8 (H) 0.0 - 5.0 % TEG-H Activated Clotting Time 5.8 4.0 - 7.0 minutes TEG-H Fibrinogen Activity 71.2 61.0 - 73.0 degrees TEG-H Platelet Aggregation 63.4 55.0 - 65.0 MM TEG-H Fibrinolysis 0.0 0.0 - 5.0 % Specimen Performing Laboratory Blood [address] [address] NM myocardial perfusion SPECT, pharm(Lexiscan) (09/08/2017 12:25 PM) Specimen Performing Laboratory payworks RIS Narrative FINAL REPORT PROCEDURE:Rest/Stress MYOCARDIAL PERFUSION SPECT with regadenoson\\XA9\\ CPT CODE:36313 INDICATION:CAD risk HISTORY:Cardiac risk factors: Hypertension, smoker, CVA. Other cardiovascular history: No reported CAD.. Recent cardiac symptoms: Not documented. Current cardiovascular-related medications: Aliquot was. PROTOCOL:10.5 mCi of Tc-99m sestamibi was injected iv at rest, and SPECT (tomographic) images were obtained. Also, 31.2 mCi of Tc-99m sestamibi was injected iv at expected peak pharmacologic effect, and gated SPECT images were obtained. PRELIMINARY STRESS TEST DATA FROM NONINVASIVE CARDIOLOGY: Pharmacologic stress was by 10-second iv infusion of 0.4 mg of regadenoson.Radiotracer was injected 30 seconds after start of stress. Heart rate was 80 beats/min at rest and 86 beats/min (53 % of MPHR) at tracer injection. BP was 117/69 mmHg at rest and 110/70 mmHg at tracer injection. Stress was stopped for predetermined endpoint. The patient experienced dyspnea; treatment was not required. Preliminary ECG evaluation revealed sinus rhythm at rest and no ischemic changes with stress. (Final ECG interpretation and other stress and monitoring data are reported separately by Cardiology.) IMAGING FINDINGS:Study quality is good.Post-stress images show an apical defect. Resting images show improvement. LV volume appears normal. RV volume appears normal. Gated images obtained at rest after stress injection show normal LV wall motion and thickening. QGS LVEF is 65%. IMPRESSION: 1. Abnormal study.2. Appropriate pharmacologic stress.3. Abnormal myocardial perfusion. There is amarked reversible apical defect LV.4. Overall resting LV function is within normal limits with normal wall motion.5. Extracardiac tracer distribution is normal.6. No previous [facility] study for comparison. NONINVASIVE RISK STRATIFICATION: The above findings are considered intermediate risk (1% to 3% annual mortality rate) based on the following criterion: - Mild/moderate resting left ventricular dysfunction (LVEF 35% to 49%) - Stress-induced moderate perfusion defect without LV dilation or increased lung intake (thallium-201) (JACC. 2012;59(9):857-81.) Signed: Analisa Velasco MD Report Verified Date/Time:09/08/2017 13:32:15 Reading Location: [address] Reading Room Procedure Note Interface, External Ris In - 09/08/2017 1:34 PM [employer] FINAL REPORT PROCEDURE: Rest/Stress MYOCARDIAL PERFUSION SPECT with regadenoson\\XA9\\ CPT CODE: 30916 INDICATION: CAD risk HISTORY: Cardiac risk factors: Hypertension, smoker, CVA. Other cardiovascular history: No reported CAD.. Recent cardiac symptoms: Not documented. Current cardiovascular-related medications: Aliquot was. PROTOCOL: 10.5 mCi of Tc-99m sestamibi was injected iv at rest, and SPECT (tomographic) images were obtained. Also, 31.2 mCi of Tc-99m sestamibi was injected iv at expected peak pharmacologic effect, and gated SPECT images were obtained. PRELIMINARY STRESS TEST DATA FROM NONINVASIVE CARDIOLOGY: Pharmacologic stress was by 10-second iv infusion of 0.4 mg of regadenoson. Radiotracer was injected 30 seconds after start of stress. Heart rate was 80 beats/min at rest and 86 beats/min (53 % of MPHR) at tracer injection. BP was 117/69 mmHg at rest and 110/70 mmHg at tracer injection. Stress was stopped for predetermined endpoint. The patient experienced dyspnea; treatment was not required. Preliminary ECG evaluation revealed sinus rhythm at rest and no ischemic changes with stress. (Final ECG interpretation and other stress and monitoring data are reported separately by Cardiology.) IMAGING FINDINGS: Study quality is good.Post-stress images show an apical defect. Resting images show improvement. LV volume appears normal. RV volume appears normal. Gated images obtained at rest after stress injection show normal LV wall motion and thickening. QGS LVEF is 65%. IMPRESSION: 1. Abnormal study. 2. Appropriate pharmacologic stress. 3. Abnormal myocardial perfusion. There is a marked reversible apical defect LV. 4. Overall resting LV function is within normal limits with normal wall motion. 5. Extracardiac tracer distribution is normal. 6. No previous [facility] study for comparison. NONINVASIVE RISK STRATIFICATION: The above findings are considered intermediate risk (1% to 3% annual mortality rate) based on the following criterion: - Mild/moderate resting left ventricular dysfunction (LVEF 35% to 49%) - Stress-induced moderate perfusion defect without LV dilation or increased lung intake (thallium-201) (JACC. 2012;59(9):857-78.) Signed: Analisa Velasco MD Report Verified Date/Time: 09/08/2017 13:32:15 Reading Location: [address] [place] [address] Reading Room after 04/29/2017
[2018-04-30 17:49] LABS: Arterial Blood Carboxyhemoglob 2.8 % (0-1.5); Blood Gas Oxyhemoglobin 74.6 % (94-97); Blood O2 Saturation 77.3 % (92-98.5)
[2018-04-30] MEDS ORDERED: IPRATROPIUM BROM 0.5MG/2.5ML ONE (18:03)
[2018-04-30] MEDS ORDERED: ALBUTEROL 2.5 MG/3 ML NEB SOL ONE (18:03)
[2018-04-30] MEDS ORDERED: METHYLPREDNISOLONE 125 MG INJ ONE (18:03)
[2018-04-30] MEDS ORDERED: LORazepam 2 MG/ML VIAL ONE (18:03)
--- NOTE | 2018-04-30 18:03 | ER ---
Nurse's Notes [facility] Name: Yuly Briones Age: 57 yrs Sex: Female : 1960 Arrival Date: 04/30/2018 Time: 17:18 Bed 8 Private MD: Diagnosis: Dyspnea;Chronic obstructive pulmonary disease with (acute) exacerbation;Cardiomegaly;Hypoxemia;Anemia, unspecified;Hypo-osmolality and hyponatremia;Pleural effusion in conditions classified elsewhere-bilateral Presentation: 04/30 17:18 Presenting complaint: EMS states: pt was seen here on Monday, was told she had fluid iw on her lungs, left AMA, had increased difficulty breathing over past 2 days, also c/o pain to chest upon palpation, hx of CABG X 7 months ago, denies cough. Transition of care: patient was not received from another setting of care. Onset of symptoms was April 28, 2018. Risk Assessment: Do you want to hurt yourself or someone else? Patient reports no desire to harm self or others. Initial Sepsis Screen: Does the patient meet any 2 criteria? RR > 20 per min. Does the patient have a suspected source of infection? No. Patient's initial sepsis screen is negative. Care prior to arrival: Medication(s) given: Albuterol Neb x 1, Atrovent Neb x 1. 17:18 Method Of Arrival: EMS: [facility] iw 17:18 Acuity: [place] 2 iw Triage Assessment: 20:33 General: Appears distressed. Respiratory: Reports shortness of breath Onset: The aj symptoms/episode began/occurred gradually. Historical: - Allergies: 17:28 Ibuprofen; iw 17:28 thorazine; iw 17:28 Toradol; iw 17:28 tramadol; iw - Home Meds: 17:28 acetaminophen-codeine 300-30 mg Oral tab 2 tabs every 4-6 hours [Active]; Advair Diskus iw 250-50 mcg/dose Inhl dsdv 1 puff 2 times per day [Active]; aspirin 81 mg Oral chew 1 tab once daily [Active]; Bentyl 10 mg Oral cap 1 cap 3 times per day [Active]; Cymbalta 60 mg Oral cpDR 1 cap once daily [Active]; Klonopin 1 mg Oral tab 1 tab daily [Active]; lisinopril-hydrochlorothiazide 20-25 mg Oral tab 1 tab once daily [Active]; Nexium 40 mg Oral cpDR 1 cap 2 times per day [Active]; pravastatin 40 mg Oral tab 1 tab once daily [Active]; Premarin 1.25 mg Oral tab 1 tab once daily [Active]; promethazine 25 mg Oral tab 1 tab once daily [Active]; Seroquel 400 mg Oral tab 1 tab once daily [Active]; trazodone 50 mg Oral tab 1 tab 3 times per day [Active]; Wellbutrin 300 mg once daily Oral [Active]; Zanaflex 4 mg Oral cap 1 cap 3 times per day [Active]; - PMHx: 17:28 Asthma; COPD; Emphysema; Hyperlipidemia; Hypertension; iw - PSHx: 17:28 CABG; iw - Immunization history:: Adult Immunizations up to date. - Ebola Screening: : Patient negative for fever greater than or equal to 101.5 degrees Fahrenheit, and additional compatible Ebola Virus Disease symptoms Patient denies exposure to infectious person Patient denies travel to an Ebola-affected area in the 21 days before illness onset No symptoms or risks identified at this time. - Social history:: Smoking status: Patient uses tobacco products, Lives with smoker. - Family history:: not pertinent. Screenin:36 Abuse screen: Denies threats or abuse. Denies injuries from another. Nutritional aj screening: Patient reports she is unable to eat due to SOB. Tuberculosis screening: No symptoms or risk factors identified. Fall Risk None identified. Assessment: 17:36 General: Appears in no apparent distress. uncomfortable, slender, Behavior is aj cooperative, anxious. Pain: Complains of pain in back and buttocks. Neuro: Level of Consciousness is awake, alert, obeys commands, Oriented to person, place, time, situation, Appropriate for age. Cardiovascular: Reports shortness of breath, Capillary refill < 3 seconds in bilateral fingers Patient's skin is warm and dry. Rhythm is regular. Respiratory: Airway is patent Respiratory effort is labored, with nasal flaring, pursed lip, Respiratory pattern is tachypnea Breath sounds with crackles bilaterally. the patient has moderate shortness of breath. Derm: Skin is fragile, is thin, Skin is dry, Skin is pale, Bruising that is dark purple, on right arm and left arm. Vital Signs: 17:15 BP 115 / 54; Pulse 97; Resp 28 S; Pulse Ox 66% on R/A; iw 17:29 Pulse 87; Resp 26 S; Pulse Ox 89% on 4 lpm NC; iw 17:36 Pulse 85; Resp 26; Pulse Ox 80% 3 lpm ; aj 18:27 BP 103 / 71; Pulse 81; Resp 24; Pulse Ox 100% on Nebulizer Mask; aj 18:42 Pulse 86; Resp 18; Pulse Ox 95% on 4 lpm NC; aj 18:49 BP 118 / 72; Pulse 88; Resp 25; Pulse Ox 95% on 4 lpm NC; aj 19:35 BP 115 / 88; Pulse 87; Resp 22; Pulse Ox 100% on BiPAP; aj 18:42 Patient refused to keep BP cuff on "It's too tight" aj ED Course: 17:18 Patient arrived in ED. iw 17:20 Daina Singh, RN is Primary Nurse. aj 17:26 Triage completed. iw 17:35 EKG done, by cardiac catheterization technologist. reviewed by Mason Parsons MD. sm3 17:36 Inserted saline lock: 24 gauge in right forearm, using aseptic technique. Blood aj collected. 17:36 Patient has correct armband on for positive identification. Bed in low position. Side aj rails up X 1. engine monitor on. Pulse ox on. NIBP on. 17:51 Mason Parsons MD is Attending Physician. reinaldo 18:01 Marlene Herbert MD is Hospitalizing Provider. reinaldo 18:02 Urine collected: clean catch specimen, clear, bennie colored. jb1 18:26 Espitia cath inserted, using sterile technique, 16 Fr., by wa, balloon inflated, urine aj specimen collected. returned clear yellow urine. Patient tolerated well. 18:56 Radiology exam delayed due to lab results not completed at this time. (BUN/Creatinine). mw3 19:07 Radiology exam delayed due to lab results not completed at this time. (BUN/Creatinine). mw3 20:12 No provider procedures requiring assistance completed. aj 20:30 IV discontinued. aj 20:31 Patient placed in an exam room. aj 21:16 Inserted saline lock: 18 gauge in right EJ, using aseptic technique. aj Administered Medications: 18:20 Drug: Albuterol - atroVENT (3:1) (2.5 mg - 0.5 mg) 3 ml Route: Nebulizer; aj 18:59 Follow up: Response: Wheezing diminished aj 18:21 Drug: ProTONIX 40 mg Route: IVP; Site: right forearm; aj 20:30 Follow up: Response: No adverse reaction aj 18:21 Drug: SOLU-Medrol 125 mg Route: IVP; Site: right forearm; aj 20:29 Follow up: Response: No adverse reaction aj 18:23 Drug: fentaNYL (PF) 25 mcg Route: IVP; Site: right forearm; aj 20:27 Follow up: Response: Pain is decreased aj 18:24 Not Given (Duplicate Order): fentaNYL (PF) 25 mcg IVP once aj 18:24 Drug: Ativan 0.5 mg Route: IVP; Site: right forearm; aj 20:13 Follow up: Response: No adverse reaction; Anxiety decreased aj 18:25 Not Given (Duplicate Order): Ativan 0.5 mg IVP once aj 18:26 Not Given (Administered MICROELECTRONICS ENGINEER): Lasix 40 mg IVP once aj 18:41 Drug: levofloxacin 500 mg Volume: 100 ml; Route: IVPB; Infused Over: 60 mins; Site: aj right forearm; 20:28 Follow up: Response: No adverse reaction; IV Status: Completed infusion; IV Intake: aj 100ml 18:58 Drug: Zofran 4 mg Route: IVP; Site: right forearm; aj 20:28 Follow up: Response: Nausea is decreased aj Intake: 20:28 IV: 100ml; Total: 100ml. aj Outcome: 18:02 Decision to Hospitalize by Provider. reinaldo 21:15 Admitted to Med/surg accompanied by tech, via stretcher, with oxygen, with chart, aj Report called to [facility] 21:15 Condition: good 21:15 Instructed on the need for admit. 21:18 Patient left the ED. aj Signatures: Adryan Rashid jb1 Daina Singh, RN Mason Saba MD MD cha Williams, Irene, RN Daisy Earl3 Kateryna Ferguson mw3 Corrections: (The following items were deleted from the chart) 20:31 20:12 Patient admitted, IV remains in place. intact, aj aj
[2018-04-30] MEDS ORDERED: FENTANYL CITR 100 MCG/2 ML ONE (18:04)
[2018-04-30] MEDS ORDERED: Levofloxacin500mg IV 500 MG/100 ML BAG IV ONE (18:04)
[2018-04-30] MEDS ORDERED: PANTOPRAZOLE 40 MG INJ ONE (18:04)
[2018-04-30] MEDS ORDERED: FUROSEMIDE 40 MG/4 ML VIAL ONE (18:04)
--- NOTE | 2018-04-30 18:04 | EDPHYS ---
Physician Documentation [facility] Name: Yuly Briones Age: 57 yrs Sex: Female : 1960 Arrival Date: 04/30/2018 Time: 17:18 Bed 8 Private MD: ED Physician Mason Parsons HPI: 04/30 17:53 This 57 yrs old Female presents to ER via EMS with complaints of Breathing reinaldo Difficulty. 17:53 The patient has shortness of breath at rest, with light activity. Onset: The reinaldo symptoms/episode began/occurred 2 day(s) ago. Duration: The symptoms are continuous, and are unchanged since they started. The patient's shortness of breath has no apparent modifying factors. Associated signs and symptoms: The patient has no apparent associated signs or symptoms. Severity of symptoms: At their worst the symptoms were moderate in the emergency department the symptoms are unchanged. The patient has not experienced similar symptoms in the past. Historical: - Allergies: 17:28 Ibuprofen; iw 17:28 thorazine; iw 17:28 Toradol; iw 17:28 tramadol; iw - Home Meds: 17:28 acetaminophen-codeine 300-30 mg Oral tab 2 tabs every 4-6 hours [Active]; Advair Diskus iw 250-50 mcg/dose Inhl dsdv 1 puff 2 times per day [Active]; aspirin 81 mg Oral chew 1 tab once daily [Active]; Bentyl 10 mg Oral cap 1 cap 3 times per day [Active]; Cymbalta 60 mg Oral cpDR 1 cap once daily [Active]; Klonopin 1 mg Oral tab 1 tab daily [Active]; lisinopril-hydrochlorothiazide 20-25 mg Oral tab 1 tab once daily [Active]; Nexium 40 mg Oral cpDR 1 cap 2 times per day [Active]; pravastatin 40 mg Oral tab 1 tab once daily [Active]; Premarin 1.25 mg Oral tab 1 tab once daily [Active]; promethazine 25 mg Oral tab 1 tab once daily [Active]; Seroquel 400 mg Oral tab 1 tab once daily [Active]; trazodone 50 mg Oral tab 1 tab 3 times per day [Active]; Wellbutrin 300 mg once daily Oral [Active]; Zanaflex 4 mg Oral cap 1 cap 3 times per day [Active]; - PMHx: 17:28 Asthma; COPD; Emphysema; Hyperlipidemia; Hypertension; iw - PSHx: 17:28 CABG; iw - Immunization history:: Adult Immunizations up to date. - Ebola Screening: : Patient negative for fever greater than or equal to 101.5 degrees Fahrenheit, and additional compatible Ebola Virus Disease symptoms Patient denies exposure to infectious person Patient denies travel to an Ebola-affected area in the 21 days before illness onset No symptoms or risks identified at this time. - Social history:: Smoking status: Patient uses tobacco products, Lives with smoker. - Family history:: not pertinent. ROS: 17:53 Constitutional: Negative for fever, chills, and weight loss, Eyes: Negative for injury, reinaldo pain, redness, and discharge, ENT: Negative for injury, pain, and discharge, Neck: Negative for injury, pain, and swelling, Cardiovascular: Negative for chest pain, palpitations, and edema, Abdomen/GI: Negative for abdominal pain, nausea, vomiting, diarrhea, and constipation, Back: Negative for injury and pain, : Negative for injury, bleeding, discharge, and swelling, MS/Extremity: Negative for injury and deformity, Skin: Negative for injury, rash, and discoloration, Neuro: Negative for headache, weakness, numbness, tingling, and seizure, Psych: Negative for depression, anxiety, suicide ideation, homicidal ideation, and hallucinations, Allergy/Immunology: Negative for hives, rash, and allergies, Endocrine: Negative for neck swelling, polydipsia, polyuria, polyphagia, and marked weight changes. 17:53 Respiratory: Positive for cough, shortness of breath, wheezing, expiratory. Exam: 17:53 Constitutional: This is a well developed, well nourished patient who is awake, alert, reinaldo and in no acute distress. Head/Face: Normocephalic, atraumatic. Eyes: Pupils equal round and reactive to light, extra-ocular motions intact. Lids and lashes normal. Conjunctiva and sclera are non-icteric and not injected. Cornea within normal limits. Periorbital areas with no swelling, redness, or edema. ENT: Nares patent. No nasal discharge, no septal abnormalities noted. Tympanic membranes are normal and external auditory canals are clear. Oropharynx with no redness, swelling, or masses, exudates, or evidence of obstruction, uvula midline. Mucous membranes moist. Neck: Trachea midline, no thyromegaly or masses palpated, and no cervical lymphadenopathy. Supple, full range of motion without nuchal rigidity, or vertebral point tenderness. No Meningismus. Chest/axilla: Normal chest wall appearance and motion. Nontender with no deformity. No lesions are appreciated. Cardiovascular: Regular rate and rhythm with a normal S1 and S2. No gallops, murmurs, or rubs. Normal PMI, no JVD. No pulse deficits. Abdomen/GI: Soft, non-tender, with normal bowel sounds. No distension or tympany. No guarding or rebound. No evidence of tenderness throughout. Back: No spinal tenderness. No costovertebral tenderness. Full range of motion. Female : Normal external genitalia. Skin: Warm, dry with normal turgor. Normal color with no rashes, no lesions, and no evidence of cellulitis. MS/ Extremity: Pulses equal, no cyanosis. Neurovascular intact. Full, normal range of motion. Neuro: Awake and alert, GCS 15, oriented to person, place, time, and situation. Cranial nerves II-XII grossly intact. Motor strength 5/5 in all extremities. Sensory grossly intact. Cerebellar exam normal. Normal gait. Psych: Awake, alert, with orientation to person, place and time. Behavior, mood, and affect are within normal limits. 17:53 Respiratory: mild respiratory distress is noted, Respirations: labored breathing, Breath sounds: decreased breath sounds, that are moderate. Vital Signs: 17:15 BP 115 / 54; Pulse 97; Resp 28 S; Pulse Ox 66% on R/A; iw 17:29 Pulse 87; Resp 26 S; Pulse Ox 89% on 4 lpm NC; iw 17:36 Pulse 85; Resp 26; Pulse Ox 80% 3 lpm ; aj 18:27 BP 103 / 71; Pulse 81; Resp 24; Pulse Ox 100% on Nebulizer Mask; aj 18:42 Pulse 86; Resp 18; Pulse Ox 95% on 4 lpm NC; aj 18:49 BP 118 / 72; Pulse 88; Resp 25; Pulse Ox 95% on 4 lpm NC; aj 19:35 BP 115 / 88; Pulse 87; Resp 22; Pulse Ox 100% on BiPAP; aj 18:42 Patient refused to keep BP cuff on "It's too tight" aj MDM: 17:51 Patient medically screened. [facility] 17:58 Data reviewed: vital signs, nurses notes, lab test result(s), EKG, radiologic studies, reinaldo plain films. 04/30 17:31 Order name: Basic Metabolic Panel; Complete Time: 20:20 04/30 17:31 Order name: CBC with Diff; Complete Time: 21:14 04/30 17:31 Order name: Ckmb; Complete Time: 20:20 04/30 17:31 Order name: CPK; Complete Time: 20:20 04/30 17:31 Order name: LFT's; Complete Time: 20:20 04/30 17:31 Order name: Magnesium; Complete Time: 20:20 04/30 17:31 Order name: NT PRO-BNP; Complete Time: 20:20 04/30 17:31 Order name: PT-INR; Complete Time: 19:22 04/30 17:31 Order name: Ptt, Activated; Complete Time: 19:22 04/30 17:31 Order name: Troponin (emerg Dept Use Only); Complete Time: 19:22 04/30 17:33 Order name: Blood Culture Adult (2) 04/30 17:35 Order name: ABG; Complete Time: 18:40 04/30 18:05 Order name: Urine Dipstick--Ancillary (enter results); Complete Time: 18:40 04/30 20:30 Order name: Manual Differential; Complete Time: 21:14 [facility] 04/30 17:31 Order name: XRAY Chest (1 view) 04/30 17:52 Order name: BIPAP [facility] 04/30 17:59 Order name: CT Chest For PE Angio [facility] 04/30 18:09 Order name: Echo with Doppler [facility] 04/30 19:05 Order name: RAD; Complete Time: 19:22 [facility] 04/30 20:25 Order name: CT; Complete Time: 21:14 [facility] 04/30 17:31 Order name: EKG; Complete Time: 17:32 04/30 17:31 Order name: Cardiac monitoring; Complete Time: 17:47 04/30 17:31 Order name: EKG - Nurse/Tech; Complete Time: 17:47 04/30 17:31 Order name: IV Saline Lock; Complete Time: 17:47 04/30 17:31 Order name: Labs collected and sent; Complete Time: 17:48 04/30 17:31 Order name: O2 Per Protocol; Complete Time: 17:48 04/30 17:31 Order name: O2 Sat Monitoring; Complete Time: 17:48 04/30 17:31 Order name: Urine Dipstick-Ancillary (obtain specimen); Complete Time: 18:02 04/30 18:09 Order name: CONS Physician Consult EDMS 04/30 18:09 Order name: CONS Physician Consult EDMS Administered Medications: 18:20 Drug: Albuterol - atroVENT (3:1) (2.5 mg - 0.5 mg) 3 ml Route: Nebulizer; aj 18:59 Follow up: Response: Wheezing diminished aj 18:21 Drug: ProTONIX 40 mg Route: IVP; Site: right forearm; aj 20:30 Follow up: Response: No adverse reaction aj 18:21 Drug: SOLU-Medrol 125 mg Route: IVP; Site: right forearm; aj 20:29 Follow up: Response: No adverse reaction aj 18:23 Drug: fentaNYL (PF) 25 mcg Route: IVP; Site: right forearm; aj 20:27 Follow up: Response: Pain is decreased aj 18:24 Not Given (Duplicate Order): fentaNYL (PF) 25 mcg IVP once aj 18:24 Drug: Ativan 0.5 mg Route: IVP; Site: right forearm; aj 20:13 Follow up: Response: No adverse reaction; Anxiety decreased aj 18:25 Not Given (Duplicate Order): Ativan 0.5 mg IVP once aj 18:26 Not Given (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 Preliminary diagnosis are Dyspnea, Chronic obstructive pulmonary disease with (acute) exacerbation, Cardiomegaly, Hypoxemia, Anemia, unspecified, Hypo-osmolality and hyponatremia, Pleural effusion in conditions classified elsewhere - bilateral. - Bed requested for Telemetry/MedSurg (Inpatient). - Status is Inpatient Admission. aj - Condition is Fair. - Problem is new. - Symptoms have improved. UTI on Admission? No Signatures: Dispatcher [employer] EDMaribel Davidson RN RN kl Myers, Amanda, RN RN aj Anderson, Corey, MD MD cha Williams, Irene, RN RN iw Corrections: (The following items were deleted from the chart) 19:23 18:02 Hospitalization Ordered by Marlene Herbert MD for Inpatient Admission. Preliminary reinaldo diagnosis is Dyspnea; Chronic obstructive pulmonary disease with (acute) exacerbation; Cardiomegaly; Hypoxemia. Bed requested for Telemetry/MedSurg (Inpatient). Status is Inpatient Admission. Condition is Fair. Problem is new. Symptoms have improved. UTI on Admission? No. reinaldo 19:34 19:23 04/30/2018 18:02 Hospitalization Ordered by Marlene Herbert MD for Inpatient kl Admission. Preliminary diagnosis is Dyspnea; Chronic obstructive pulmonary disease with (acute) exacerbation; Cardiomegaly; Hypoxemia; Anemia, unspecified. Bed requested for Telemetry/MedSurg (Inpatient). Status is Inpatient Admission. Condition is Fair. Problem is new. Symptoms have improved. UTI on Admission? No. reinaldo 20:21 19:34 04/30/2018 18:02 Hospitalization Ordered by Marlene Herbert MD for Inpatient reinaldo Admission. Preliminary diagnosis is Dyspnea; Chronic obstructive pulmonary disease with (acute) exacerbation; Cardiomegaly; Hypoxemia; Anemia, unspecified. Bed requested for Telemetry/MedSurg (Inpatient). Status is Inpatient Admission. Condition is Fair. Problem is new. Symptoms have improved. UTI on Admission? No. kl 21:15 20:21 04/30/2018 18:02 Hospitalization Ordered by Marlene Herbert MD for Inpatient reinaldo Admission. Preliminary diagnosis is Dyspnea; Chronic obstructive pulmonary disease with (acute) exacerbation; Cardiomegaly; Hypoxemia; Anemia, unspecified; Hypo-osmolality and hyponatremia. Bed requested for Telemetry/MedSurg (Inpatient). Status is Inpatient Admission. Condition is Fair. Problem is new. Symptoms have improved. UTI on Admission? No. reinaldo 21:18 21:15 04/30/2018 18:02 Hospitalization Ordered by Marlene Herbert MD for Inpatient aj Admission. Preliminary diagnosis is Dyspnea; Chronic obstructive pulmonary disease with (acute) exacerbation; Cardiomegaly; Hypoxemia; Anemia, unspecified; Hypo-osmolality and hyponatremia; Pleural effusion in conditions classified elsewhere - bilateral. Bed requested for Telemetry/MedSurg (Inpatient). Status is Inpatient Admission. Condition is Fair. Problem is new. Symptoms have improved. UTI on Admission? No. reinaldo
[2018-04-30 18:10] LABS: Urine Blood NEGATIVE (NEG); Urine Glucose NEGATIVE (NEG); Urine Protein NEGATIVE (NEG)
[2018-04-30] MEDS ORDERED: ONDANSETRON 4 MG/2 ML VIAL ONE (18:54)
[2018-04-30] MEDS: FUROSEMIDE 40 MG/4 ML VIAL IV SCH (19:00)
[2018-04-30 19:02] LABS: Protime INR 1.64
--- NOTE | 2018-04-30 19:04 | RAD REPORT ---
EXAM DESCRIPTION: RAD - Chest Single View - 04/30/2018 6:15 pm CLINICAL HISTORY: Shortness of breath COMPARISON: April 28 TECHNIQUE: AP portable chest image was obtained 1757 hours . FINDINGS: Lung volumes are low. Interstitial and alveolar opacification is present throughout both l vernell samuel. Pattern is not substantially different from comparison. Heart size is upper normal. Mild vascular engorgement seen. Bilateral pleural effusions are present right greater than left. These are not substantially different from the comparison. No pneumothorax. No acute bone finding. Old chronic AC joint separation with fracture fragment. No acute aortic findings suspected. IMPRESSION: CHF/volume overload pattern not substantially different from April 28.
[2018-04-30 19:14] LABS: Absolute Lymphocytes (CBC) 0.3 K/uL (0.7-4.9); Absolute Monocytes 0.1 K/uL (0.1-1.3); Absolute Neutrophil 3.9 K/uL (1.8-8.0); Basophils % 0.1 % (0-1.3); Eosinophils % 0.1 % (0-4.4); Hematocrit 29.4 % (36.0-45.0); Lymphocytes % 6.3 % (15.3-44.8); MCH 29.3 pg (27.0-35.0); MCV 91.4 fL (80-100); MPV 8.8 fL (7.6-11.3); Monocytes % 1.6 % (3.3-12.3); RBC Red Blood Cell Count 3.22 M/uL (3.86-4.86)
--- NOTE | 2018-04-30 19:29 | EKG ---
Test Date: 2018-04-30 Test Time: 17:25:10 Change Over: CRUZ MEASUREMENT RESULTS: Intervals: Rate: 84 MA: 156 QRSD: 84 QT: 394 QTc: 465 [place]: P: 38 MA: 156 QRS: 107 T: 12 INTERPRETIVE STATEMENTS: Normal sinus rhythm Rightward axis Borderline ECG Compared to ECG 04/28/2018 22:14:30 T-wave abnormality no longer present Prolonged QT interval no longer present Electronically Signed On 04-30-18 19:29:02 CDT by Chris Nair
[2018-04-30 19:32] LABS: Albumin 3.1 g/dL (3.4-5.0); Bilirubin Direct 0.3 mg/dL (0-0.2); Bilirubin Total 0.9 mg/dL (0.2-1.0); CKMB Creatine Kinase MB 1.5 ng/mL (0.3-3.6); Magnesium 1.9 mg/dL (1.8-2.4); Potassium 3.9 mmol/L (3.5-5.1); Protein, Total 8.5 g/dL (6.4-8.2)
[2018-04-30] MEDS: ALBUTEROL 2.5 MG/3 ML NEB SOL NEB SCH ×2 (20:00→23:40)
--- NOTE | 2018-04-30 20:24 | RAD REPORT ---
EXAM DESCRIPTION: CT - Thorax Wo Con - 04/30/2018 8:13 pm CLINICAL HISTORY: Chest pain, shortness of breath COMPARISON: Chest films same date TECHNIQUE: Axial 5 mm thick images of the chest were obtained without IV contrast. All CT scans are performed using dose optimization technique as appropriate and may include automated exposure control or mA/KV adjustment according to patient size. FINDINGS: No large mass or consolidation. Patient has numerous airspace opacities throughout the malvin g samuel. Small right pleural effusion is present. There is posterior gutter atelectasis. Interstitia l markings overall are prominent. Trace pleural fluid on the left. No pneumothorax. No chest wall mas s. Retrocaval-pretracheal lymph node 2.4 cm in size noted. Additional smaller upper mediastinal lymph no almas are present. These are nonspecific. No gross aortic or pulmonary artery finding suspected. Asses sment is limited in the absence of IV contrast. Mild cardiomegaly is present. No pericardial effusion . No chest wall mass or abnormal axillary lymphadenopathy. Patient has history of recent sternotomy. Th ere is no bony union across the sternotomy site. Surgical clips are present but no sternotomy wires. No pathologic bone process along the sternotomy. IMPRESSION: Noncontrast CT imaging shows findings favoring CHF/volume overload rather than pneumonia . Small right-sided and minimal left-sided pleural effusion. Mediastinal lymphadenopathy. This is nonspecific and probably reactive. These can be monitored on fol low-up examinations. Sternotomy with no bony union.
[2018-04-30 20:30] LABS: Blood Morphology Comment NOT SEEN (NOT SEEN); Platelet Estimate ADEQ
[2018-04-30] MEDS ORDERED: FAMOTIDINE 20 MG/2 ML VIAL IV SCH (21:00)
[2018-04-30] MEDS: APIXABAN 5 MG TABLET PO SCH (22:16)
[2018-04-30] MEDS ORDERED: ACETAMINOPHEN 500 MG TAB PO PRN (22:37)
[2018-04-30] MEDS: MORPHINE 4 MG/ML SYR IV PRN (23:26)
[2018-04-30] MEDS: IPRATROPIUM BROM 0.5MG/2.5ML NEB PRN (23:40)
[2018-05-01] MEDS ORDERED: METHYLPREDNISOLONE 40 MG INJ IV SCH (01:00)
[2018-05-01] MEDS: IPRATROPIUM BROM 0.5MG/2.5ML NEB PRN (01:37)
[2018-05-01] MEDS: ALBUTEROL 2.5 MG/3 ML NEB SOL NEB SCH ×5 (01:37→19:51)
[2018-05-01] MEDS ORDERED: ALBUMIN HUMAN 25% 100 ML IV ONE (01:56)
[2018-05-01] MEDS ORDERED: FUROSEMIDE 20 MG/ 2ML VIAL IV ONE (01:56)
[2018-05-01] MEDS: IPRATROPIUM BROM 0.5MG/2.5ML NEB SCH ×4 (02:00→19:51)
[2018-05-01] MEDS: MORPHINE 4 MG/ML SYR IV PRN ×4 (04:08→20:49)
[2018-05-01 05:02] LABS: Absolute Lymphocytes (CBC) 0.3 K/uL (0.7-4.9); Absolute Monocytes 0.1 K/uL (0.1-1.3); Absolute Neutrophil 2.7 K/uL (1.8-8.0); Basophils % 0.1 % (0-1.3); Hematocrit 24.1 % (36.0-45.0); Lymphocytes % 9.9 % (15.3-44.8); MCH 29.7 pg (27.0-35.0); MCV 90.4 fL (80-100); MPV 8.6 fL (7.6-11.3); Monocytes % 2.2 % (3.3-12.3); RBC Red Blood Cell Count 2.67 M/uL (3.86-4.86)
[2018-05-01 05:22] LABS: Potassium 3.7 mmol/L (3.5-5.1); Protein, Total 7.4 g/dL (6.4-8.2)
[2018-05-01] MEDS: METOPROLOL TAR 25 MG TAB PO SCH ×2 (05:41→18:00)
[2018-05-01] MEDS ORDERED: METHYLPREDNISOLONE 125 MG INJ IV SCH (06:00)
[2018-05-01] MEDS ORDERED: SODIUM CHLORIDE 0.9% 10ML INJ IV PRN (06:35)
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
--- NOTE | 2018-05-01 08:59 | RAD REPORT ---
EXAM DESCRIPTION: RAD - Chest Single View - 05/01/2018 8:55 am CLINICAL HISTORY: CHF/COPD Chest pain. COMPARISON: Chest Single View dated 04/30/2018; Chest Single View dated 04/28/2018; Chest Single View dated 02/23/2016; CHEST SINGLE VIEW dated 03/26/2014 FINDINGS: Portable technique limits examination quality. Since the comparative study, there has been mild worsening of bilateral pulmonary opacities suggestin g slight worsening in pulmonary edema. Bilateral pleural effusions remain stable. The heart is mildly enlarged in size. No displaced fractures. IMPRESSION: Mild worsening in lung aeration since comparative study.
[2018-05-01] MEDS ORDERED: LISINOPRIL 20 MG TAB PO SCH (09:00)
[2018-05-01] MEDS: APIXABAN 5 MG TABLET PO SCH ×2 (09:38→20:51)
[2018-05-01] MEDS: PANTOPRAZOLE 40 MG INJ IVP SCH ×2 (09:38→20:49)
[2018-05-01] MEDS: predniSONE 20 MG TAB PO SCH ×2 (12:47→20:51)
[2018-05-01] MEDS ORDERED: NA CHLORIDE 0.9% 250 ML ONE (13:32)
[2018-05-01] MEDS: FUROSEMIDE 40 MG/4 ML VIAL IV SCH ×2 (13:43→19:00)
--- NOTE | 2018-05-01 14:29 | ECHO ---
HEIGHT: 4 ft 11 in WEIGHT: 133 lb 3.2 oz DATE OF STUDY: 05/01/[address]: Mason Parsons MD 2-DIMENSIONAL: YES M.MODE: YES DOPPLER: YES COLOR FLOW: YES TDS: PORTABLE: DEFINITY: BUBBLE STUDY: DIAGNOSIS: CONGESTIVE HEART FALURE CARDIAC HISTORY: CATHERIZATION: YES SURGERY: CAGB x3 PROSTHETIC VALVE: NO PACEMAKER: NO MEASUREMENTS (cm) DIASTOLIC (NORMALS) SYSTOLIC (NORMALS) IVSd 1.2 (0.6-1.2) LA Diam 4.2 (1.9-4.0) LVEF 68% LVIDd 3.6 (3.5-5.7) LVIDs 2.3 (2.0-3.5) %FS 37% LVPWd 1.1 (0.6-1.2) Ao Diam 2.4 (2.0-3.7) 2 DIMENSIONAL ASSESSMENT: RIGHT ATRIUM: NORMAL LEFT ATRIUM: DILATED RIGHT VENTRICLE: NORMAL LEFT VENTRICLE: NORMAL TRICUSPID VALVE: NORMAL MITRAL VALVE: MITRAL ANNULAR CALCIFICATION PULMONIC VALVE: NORMAL AORTIC VALVE: SCLEROSIS PERICARDIAL EFFUSION: NONE AORTIC ROOT: NORMAL LEFT VENTRICULAR WALL MOTION: NORMAL DOPPLER/COLOR FLOW: MILD MITRAL AND TRICUSPID REGURGITATION. COMMENTS: MILD MITRAL AND TRICUSPID REGURGITATION. MITRAL ANNULAR CALCIFICATION. AORTIC SCLEROSIS. NORMAL EJECTION FRACTION. LEFT ATRIAL ENLARGEMENT. TECHNOLOGIST: MEHUL OWEN
--- NOTE | 2018-05-01 15:28 | P.PN ---
Subjective Date of Service: 05/01/18 Chief Complaint: Respiratory distress Pt seen and examined at bedside with RN. Chart reviewed. Pt is currently in mild distress as she just walked to the bedside chair. o2 sat down to 72% on 4L NC. Did go upto 89% with Deep breathing. Review of Systems General: As per HPI Physical Examination - Vital Signs Temperature: 97.6 F Blood Pressure: 116/69 Pulse: 94 Respirations: 20 Pulse Ox (%): 89 - Physical Exam General: Alert, Oriented x3, Mild distress HEENT: Atraumatic, PERRLA, EOMI Neck: Supple, JVD not distended Respiratory: Normal air movement, Crackles/rales, Expiratory wheezes, Inspiratory wheezes Cardiovascular: Regular rate/rhythm, Normal S1 S2 Gastrointestinal: Normal bowel sounds, No tenderness Musculoskeletal: No tenderness Integumentary: No rashes Neurological: Normal speech, Normal tone, Normal affect Lymphatics: No axilla or inguinal lymphadenopathy - Studies Laboratory Data (last 24 hrs) 04/30/18 17:31: PT 19.4 H, INR 1.64, APTT 33.3 04/30/18 17:31: WBC 4.3 D, Hgb 9.4 L, Hct 29.4 L, Plt Count 124 L D 04/30/18 17:31: Sodium 127 L, Potassium 3.9, BUN 25 H, Creatinine 1.10, Glucose 145 H, Magnesium 1.9, Total Bilirubin 0.9, AST 32, ALT 25, Alkaline Phosphatase 165 H Medications List Reviewed: Yes Assessment & Plan - Problems (Diagnosis) (1) Acute exacerbation of CHF (congestive heart failure) Current Visit: Yes Status: Acute Plan: Acute Exacerbation of CHF -cardiology consulted. Apprecaited Reccs -Lasix BID IV -ECHO pending -Restart home medication - BB and CCB Qualifiers: Heart failure type: diastolic Qualified Code(s): I50.33 - Acute on chronic diastolic (congestive) heart failure (2) COPD (chronic obstructive pulmonary disease) Onset Date: 05/01/18 Current Visit: Yes Status: Acute Plan: COPD with acute Exacerbation -Duonebs, Steroids and Oxygen for now Qualifiers: COPD type: COPD with acute exacerbation Qualified Code(s): J44.1 - Chronic obstructive pulmonary disease with (acute) exacerbation (3) Hyperlipidemia Current Visit: No Status: Chronic Qualifiers: Hyperlipidemia type: mixed hyperlipidemia Qualified Code(s): E78.2 - Mixed hyperlipidemia (4) Hypertension Current Visit: No Status: Chronic Qualifiers: Hypertension type: essential hypertension (5) Pulmonary embolism Current Visit: No Status: Chronic Qualifiers: Pulmonary embolism type: other Chronicity: chronic Acute cor pulmonale presence: without acute cor pulmonale Qualified Code(s): I27.82 - Chronic pulmonary embolism Discharge Plan: Home Plan to discharge in: 48 Hours - Code Status/Comfort Care Code Status Assessed: Yes Critical Care: No
[2018-05-01] MEDS: DICYCLOMINE HCL 10 MG CAP PO SCH ×2 (15:41→20:50)
[2018-05-01 20:07] LABS: Hematocrit 27.9 % (36.0-45.0)
[2018-05-01] MEDS: ONDANSETRON 4 MG/2 ML VIAL IV PRN (20:50)
[2018-05-01] MEDS: ATORVASTATIN 10 MG TAB PO SCH (20:50)
[2018-05-02] MEDS: MORPHINE 4 MG/ML SYR IV PRN ×3 (00:41→22:00)
[2018-05-02] MEDS: ALBUTEROL 2.5 MG/3 ML NEB SOL NEB SCH ×4 (01:25→19:47)
[2018-05-02] MEDS: IPRATROPIUM BROM 0.5MG/2.5ML NEB SCH ×4 (01:25→19:47)
[2018-05-02] MEDS: METOPROLOL TAR 25 MG TAB PO SCH ×2 (06:01→17:17)
[2018-05-02] MEDS: FUROSEMIDE 40 MG/4 ML VIAL IV SCH (06:01)
[2018-05-02 06:14] LABS: Absolute Lymphocytes (CBC) 0.8 K/uL (0.7-4.9); Absolute Monocytes 0.8 K/uL (0.1-1.3); Absolute Neutrophil 6.5 K/uL (1.8-8.0); Eosinophils % 0.1 % (0-4.4); Hematocrit 29.6 % (36.0-45.0); MCV 90.2 fL (80-100); MPV 9.1 fL (7.6-11.3); Monocytes % 9.8 % (3.3-12.3); RBC Red Blood Cell Count 3.28 M/uL (3.86-4.86)
[2018-05-02 06:24] LABS: Albumin 3.1 g/dL (3.4-5.0); Bilirubin Total 0.9 mg/dL (0.2-1.0); Protein, Total 7.6 g/dL (6.4-8.2)
[2018-05-02] MEDS: QUETIAPINE 100MG TAB PO SCH (09:00)
[2018-05-02] MEDS ORDERED: HOME MED 1 EA UNK (Lisinopril/Hydrochlorothiazide [Zestoretic 20-25 Mg Tablet] 1 TAB) PO SCH (09:00)
[2018-05-02] MEDS: buPROPion HCl 100 MG TAB PO SCH (09:25)
[2018-05-02] MEDS: DULOXETINE 30 MG CAP PO SCH (09:25)
[2018-05-02] MEDS: LISINOPRIL 20 MG TAB PO SCH (09:25)
[2018-05-02] MEDS: hydroCHLOROthiazide 25 MG TAB PO SCH (09:25)
[2018-05-02] MEDS: DICYCLOMINE HCL 10 MG CAP PO SCH ×3 (09:25→20:55)
[2018-05-02] MEDS: clonazePAM 1 MG TAB PO SCH (09:26)
[2018-05-02] MEDS: predniSONE 20 MG TAB PO SCH ×2 (09:26→20:56)
[2018-05-02] MEDS: PANTOPRAZOLE 40 MG INJ IVP SCH ×2 (09:27→20:56)
[2018-05-02] MEDS: APIXABAN 5 MG TABLET PO SCH ×2 (09:27→20:55)
--- NOTE | 2018-05-02 11:32 | P.PN ---
Subjective Date of Service: 05/02/18 Chief Complaint: Respiratory distress Pt seen and examined at bedside with RN. Chart reviewed. Patient currently doing well overall. No complaints to offer overnight. States his she feels a little bit better than before Review of Systems General: As per HPI Physical Examination - Vital Signs Temperature: 96.8 F Blood Pressure: 114/70 Pulse: 76 Respirations: 22 Pulse Ox (%): 98 - Physical Exam General: Alert, In no apparent distress, Oriented x3 HEENT: Atraumatic, PERRLA, EOMI Neck: Supple, JVD not distended Respiratory: Normal air movement, Expiratory wheezes, Inspiratory wheezes Cardiovascular: Regular rate/rhythm, Normal S1 S2 Gastrointestinal: Normal bowel sounds, No tenderness Musculoskeletal: No tenderness Integumentary: No rashes Neurological: Normal speech, Normal tone, Normal affect Lymphatics: No axilla or inguinal lymphadenopathy - Studies Medications List Reviewed: Yes Assessment & Plan - Problems (Diagnosis) (1) Acute exacerbation of CHF (congestive heart failure) Current Visit: Yes Status: Acute Plan: Acute Exacerbation of CHF -cardiology consulted. Appreciated Reccs -ECHO with EF of 68%, but dilated atrium -Restart home medication - BB, CCB and HCTZ -Stopped Lasix today due to increase in BUN/CR today Qualifiers: Heart failure type: diastolic Qualified Code(s): I50.33 - Acute on chronic diastolic (congestive) heart failure (2) COPD (chronic obstructive pulmonary disease) Onset Date: 05/01/18 Current Visit: Yes Status: Acute Plan: COPD with acute Exacerbation -Duonebs, Steroids and Oxygen for now Qualifiers: COPD type: COPD with acute exacerbation Qualified Code(s): J44.1 - Chronic obstructive pulmonary disease with (acute) exacerbation (3) Hyperlipidemia Current Visit: No Status: Chronic Qualifiers: Hyperlipidemia type: mixed hyperlipidemia Qualified Code(s): E78.2 - Mixed hyperlipidemia (4) Hypertension Current Visit: No Status: Chronic Qualifiers: Hypertension type: essential hypertension (5) Pulmonary embolism Current Visit: No Status: Chronic Qualifiers: Pulmonary embolism type: other Chronicity: chronic Acute cor pulmonale presence: without acute cor pulmonale Qualified Code(s): I27.82 - Chronic pulmonary embolism (6) JOANA (acute kidney injury) Current Visit: Yes Status: Acute Plan: Elevated BUN/CR -Will observe after stopping lasix Discharge Plan: Home Plan to discharge in: 24 Hours - Code Status/Comfort Care Code Status Assessed: Yes Critical Care: No
--- NOTE | 2018-05-02 11:40 | CON ---
Date of Consultation: 05/01/2018 The patient admitted on 04/30/[address] Herbert's service. I saw the patient on 05/01/2018. Reason For Consultation: COPD and congestive heart failure. History Of Present Illness: Ms. Briones is 57, has a history of severe COPD. She had been trying to wean off oxygen and have multiple other issues including dyslipidemia, hypertension, recently had co ronary artery bypass surgery at [facility] 7 months ago. It sounds like she had atrial fibr illation, after her surgery, she is taking Coumadin for that and was just switched to Eliquis. She t akes multiple pain medication and some medication for anxiety and depression, came in with shortness of breath. Diagnostic Studies: Chest x-ray showed mild CHF. EKG showed right axis deviation. Her troponin was negative. Her BNP was 5,547. She was slightly hyponatremic. Her INR was 1.64. Her hemoglobin was 9.4. Her PO2 on room air was 40 with a pH of 7.50. She is getting diuresis. She is getting inhale rs and improving. She has been on home oxygen since her CABG. Allergies: SHE IS ALLERGIC TO IBUPROFEN, TRAMADOL, OR THORAZINE. Review of Systems: Negative. Social History: Negative. Family History: Negative. Medications: At home include inhalers, multiple anxiety and depression medicines, Plaquenil, lisinop ril, Pravachol, and Coumadin, now switched to Eliquis. Physical Examination: GENERAL: She appeared to be in mild distress. VITAL SIGNS: Stable. She was afebrile. She was in normal rhythm. HEENT: Negative. NECK: Supple without any lymphadenopathy, JVD, thyromegaly, or bruit. CHEST: Her chest revealed expiratory wheezing and rales on both bases. CARDIAC EXAM: Revealed a regular rhythm and rate with S4 gallops. No murmurs or rubs. ABDOMEN: Benign. EXTREMITIES: Revealed trace edema. Diagnostic Data: As stated earlier. Impression: 1.Probable acute exacerbation of diastolic congestive heart failure. An echocardiogram is pending. 2.Recent coronary artery bypass surgery with atrial fibrillation postoperatively. She remains on El iquis at this point. 3.Anemia. 4.Hyponatremia, secondary to congestive heart failure. 5.Hypertension, well controlled. 6.Dyslipidemia, well controlled. 7.Severe chronic obstructive pulmonary disease, on oxygen at home, trying to wean off. I agree with the present regimen including diuresis and inhalers. Plan: Ms. Briones needs to see a applications trainer locally and she needs to see a primary care physician locally. She needs to follow up with us from a cardiac standpoint would be best for her. She is re sponding well to Lasix and inhalers for now. We will see what the echocardiogram shows prior to tee keen final decisions. I think it will be good to do a 48-hour Holter on her eventually and see if she still have any atrial fibrillation. I am not so sure she will need Eliquis for life considering she had her atrial fibrillation only postoperatively. I will discuss the case further with Dr. Herbert. I will keep her for another day or 2 at least in the hospital. EVERARDO/JAG Voice ID: [id number] Report ID: [id number]
--- NOTE | 2018-05-02 16:44 | EKG ---
Test Date: 2018-05-02 Test Time: 16:28:31 Nursing Department Chairperson: CRUZ MEASUREMENT RESULTS: Intervals: Rate: 71 NV: 166 QRSD: 88 QT: 414 QTc: 449 Pledger: P: 34 NV: 166 QRS: 53 T: 9 INTERPRETIVE STATEMENTS: Normal sinus rhythm normal ECG Compared to ECG 04/30/2018 17:25:10 Right-axis deviation no longer present Electronically Signed On 05-02-18 16:43:39 CDT by Chris Nair
[2018-05-02] MEDS: ATORVASTATIN 10 MG TAB PO SCH (20:56)
[2018-05-03] MEDS: ONDANSETRON 4 MG/2 ML VIAL IV PRN (01:28)
[2018-05-03] MEDS: IPRATROPIUM BROM 0.5MG/2.5ML NEB SCH ×4 (01:34→19:58)
[2018-05-03] MEDS: ALBUTEROL 2.5 MG/3 ML NEB SOL NEB SCH ×4 (01:34→19:58)
[2018-05-03] MEDS: MORPHINE 4 MG/ML SYR IV PRN ×2 (03:56→15:12)
[2018-05-03 05:32] LABS: Albumin 3.1 g/dL (3.4-5.0); Bilirubin Total 0.9 mg/dL (0.2-1.0); Potassium 4.6 mmol/L (3.5-5.1); Protein, Total 7.2 g/dL (6.4-8.2)
[2018-05-03 05:48] LABS: Absolute Lymphocytes (CBC) 0.7 K/uL (0.7-4.9); Absolute Monocytes 0.5 K/uL (0.1-1.3); Absolute Neutrophil 6.6 K/uL (1.8-8.0); Basophils % 0.1 % (0-1.3); Eosinophils % 0.1 % (0-4.4); Hematocrit 29.3 % (36.0-45.0); Lymphocytes % 8.8 % (15.3-44.8); MCH 29.9 pg (27.0-35.0); MCV 90.9 fL (80-100); MPV 8.6 fL (7.6-11.3); Monocytes % 6.8 % (3.3-12.3); RBC Red Blood Cell Count 3.22 M/uL (3.86-4.86)
[2018-05-03] MEDS: METOPROLOL TAR 25 MG TAB PO SCH ×2 (07:34→17:54)
[2018-05-03] MEDS: QUETIAPINE 100MG TAB PO SCH (09:00)
[2018-05-03] MEDS: LISINOPRIL 20 MG TAB PO SCH (09:00)
[2018-05-03] MEDS: hydroCHLOROthiazide 25 MG TAB PO SCH (09:00)
[2018-05-03] MEDS: buPROPion HCl 100 MG TAB PO SCH (09:36)
[2018-05-03] MEDS: predniSONE 20 MG TAB PO SCH ×2 (09:36→22:50)
[2018-05-03] MEDS: clonazePAM 1 MG TAB PO SCH (09:40)
[2018-05-03] MEDS: DICYCLOMINE HCL 10 MG CAP PO SCH ×3 (09:40→22:49)
[2018-05-03] MEDS: DULOXETINE 30 MG CAP PO SCH (09:40)
[2018-05-03] MEDS: APIXABAN 5 MG TABLET PO SCH ×2 (09:41→22:49)
[2018-05-03] MEDS: PANTOPRAZOLE 40 MG INJ IVP SCH ×2 (09:41→22:49)
--- NOTE | 2018-05-03 10:39 | P.PN ---
Subjective Date of Service: 05/03/18 Chief Complaint: Respiratory distress Labs and records reviewed this morning. Patient continues to be slightly hyponatremic. Renal function has decreased creatinine has gone from 1.30-1.90. Patient continues to be short of breath especially when having to get up. Patient on continuous oxygen via nasal cannula four L per min. Patient in no acute distress upon examination this morning. Nurse said that her lungs were clear yesterday. Upon auscultation today had diffuse crackles and upper and lower lobes bilaterally. Based on renal function hyponatremia and lung sounds patient is probably back in heart failure and will need diuresis again. <Delroy Cassidy - Last Filed: 05/03/18 10:33> Date of Service: 05/03/18 <Marlene Herbert - Last Filed: 05/03/18 14:53> Review of Systems General: Unremarkable Eyes: Unremarkable ENT: Unremarkable Respiratory: Shortness of Breath, SOB with Excertion Cardiovascular: Unremarkable Gastrointestinal: Unremarkable Genitourinary: Unremarkable Musculoskeletal: Unremarkable Integumentary: Unremarkable Neurological: Unremarkable Lymphatics: Unremarkable <Delroy Cassidy - Last Filed: 05/03/18 10:33> Physical Examination - Vital Signs Temperature: 97 F Blood Pressure: 88/54 Pulse: 70 Respirations: 20 Pulse Ox (%): 90 - Physical Exam General: Alert, In no apparent distress, Oriented x3 HEENT: PERRLA, Mucous membr. moist/pink, EOMI Neck: Supple, 2+ carotid pulse no bruit Respiratory: Crackles/rales Cardiovascular: No edema, Normal pulses, Regular rate/rhythm, Systolic murmur Capillary refill: <2 Seconds Gastrointestinal: Normal bowel sounds, Soft and benign, Non-distended, No ascites, No tenderness, No masses, No rebound, No guarding Musculoskeletal: No clubbing, No swelling, No contractures, No erythema, No tenderness, No warmth Integumentary: No rashes, No breakdown, No significant lesion Neurological: Normal speech, Normal strength at 5/5 x4 extr, Normal tone, Sensation intact, Cranial nerves 3-12 intact, Normal affect Lymphatics: No axilla or inguinal lymphadenopathy - Studies Medications List Reviewed: Yes <Delroy Cassidy - Last Filed: 05/03/18 10:33> - Studies labs reviewed Laboratory Last Values WBC 7.9 K/uL (4.3-10.9) 05/03/18 04:25 RBC 3.22 M/uL (3.86-4.86) L 05/03/18 04:25 Hgb 9.6 g/dL (12.0-15.0) L 05/03/18 04:25 Hct 29.3 % (36.0-45.0) L 05/03/18 04:25 MCV 90.9 fL (80-100) 05/03/18 04:25 MCH 29.9 pg (27.0-35.0) 05/03/18 04:25 MCHC 32.8 g/dL (32.0-36.0) 05/03/18 04:25 RDW 17.4 % (12.1-15.2) H 05/03/18 04:25 Plt Count 155 K/uL (152-406) 05/03/18 04:25 MPV 8.6 fL (7.6-11.3) 05/03/18 04:25 Neutrophils % 84.2 % (41.7-73.7) H 05/03/18 04:25 Lymphocytes % 8.8 % (15.3-44.8) L 05/03/18 04:25 Monocytes % 6.8 % (3.3-12.3) 05/03/18 04:25 Eosinophils % 0.1 % (0-4.4) 05/03/18 04:25 Basophils % 0.1 % (0-1.3) 05/03/18 04:25 Absolute Neutrophils 6.6 K/uL (1.8-8.0) 05/03/18 04:25 Segmented Neutrophils 89 % (40-80) H 04/30/18 17:31 Band Neutrophils 6 % (0-1) H 04/30/18 17:31 Absolute Lymphocytes 0.7 K/uL (0.7-4.9) 05/03/18 04:25 Lymphocytes 5 % (15-42) L 04/30/18 17:31 Monocytes 0 % (0-10) 04/30/18 17:31 Absolute Monocytes 0.5 K/uL (0.1-1.3) 05/03/18 04:25 Absolute Eosinophils 0.0 K/uL (0-0.5) 05/03/18 04:25 Absolute Basophils 0.0 K/uL (0-0.5) 05/03/18 04:25 Morphology Comment Not seen (NOT SEEN) 04/30/18 17:31 PT 19.4 SECONDS (9.5-12.5) H 04/30/18 17:31 INR 1.64 04/30/18 17:31 APTT 33.3 SECONDS (24.3-36.9) 04/30/18 17:31 pH 7.50 (7.35-7.45) H 04/30/18 17:40 pCO2 39.0 mmHG (35-45) 04/30/18 17:40 pO2 40.7 mmHG (75-100) L 04/30/18 17:40 HCO3 30.3 mmol/L (22-28) H 04/30/18 17:40 Base Excess 6.8 mmol/L 04/30/18 17:40 Oxyhemoglobin 74.6 % (94-97) L 04/30/18 17:40 ABG O2 Sat (Measured) 77.3 % (92-98.5) L 04/30/18 17:40 ABG Carboxyhemoglobin 2.8 % (0-1.5) H 04/30/18 17:40 ABG Methemoglobin 0.7 % (0-1.5) 04/30/18 17:40 Other Total Hgb 8.5 g/dl (12-18) L 04/30/18 17:40 Inspired O2 36.0 % 04/30/18 17:40 Sodium 127 mmol/L (136-145) L 05/03/18 04:25 Potassium 4.6 mmol/L (3.5-5.1) 05/03/18 04:25 Chloride 88 mmol/L (98-107) L 05/03/18 04:25 Carbon Dioxide 30 mmol/L (21-32) 05/03/18 04:25 BUN 64 mg/dL (7-18) H 05/03/18 04:25 Creatinine 1.90 mg/dL (0.55-1.3) H 05/03/18 04:25 Estimated GFR 27 mL/min (=/>90) L 05/03/18 04:25 Glucose 111 mg/dL (74-106) H 05/03/18 04:25 Calcium 8.0 mg/dL (8.5-10.1) L 05/03/18 04:25 Magnesium 1.9 mg/dL (1.8-2.4) 04/30/18 17:31 Total Bilirubin 0.9 mg/dL (0.2-1.0) 05/03/18 04:25 Direct Bilirubin 0.3 mg/dL (0-0.2) H 04/30/18 17:31 AST 19 U/L (15-37) 05/03/18 04:25 ALT 20 U/L (12-78) 05/03/18 04:25 Alkaline Phosphatase 110 U/L (45-117) 05/03/18 04:25 Creatine Kinase 39 U/L (26-192) 04/30/18 17:31 CK-MB (CK-2) 1.5 ng/mL (0.3-3.6) 04/30/18 17:31 Rapid Troponin I < 0.02 ng/mL (0.0-0.045) 04/30/18 17:31 NT-Pro-B Natriuret Pep 5547 pg/mL (<125) H 04/30/18 17:31 Serum Total Protein 7.2 g/dL (6.4-8.2) 05/03/18 04:25 Albumin 3.1 g/dL (3.4-5.0) L 05/03/18 04:25 Globulin 4.1 g/dL (2.3-3.5) H 05/03/18 04:25 Albumin/Globulin Ratio 0.8 (1.1-1.8) L 05/03/18 04:25 Urine pH 7.0 (5.0-7.0) 04/30/18 18:07 Ur Specific [place] 1.010 (1.005-1.030) 04/30/18 18:07 Urine Ketones Negative (NEG) 04/30/18 18:07 Urine Blood Negative (NEG) 04/30/18 18:07 Urine Nitrite Negative (NEG) 04/30/18 18:07 Ur Leukocyte Esterase Negative (NEG) 04/30/18 18:07 Urine Glucose Negative (NEG) 04/30/18 18:07 Urine Total Protein Negative (NEG) 04/30/18 18:07 ABO/Rh O POSITIVE 05/01/18 08:40 Antibody Screen Negative 05/01/18 08:11 Crossmatch See Detail 05/01/18 08:11 BBK History Checked Cancelled 05/01/18 08:11 <Marlene Herbert - Last Filed: 05/03/18 14:53> Assessment And Plan - Current Problems (Diagnosis) (1) JOANA (acute kidney injury) Current Visit: Yes Status: Acute Plan: Patient is to have labs drawn q. morning to ensure renal function is decreasing. Patient likely has had transient increase secondary to prerenal azotemia. Will diurese patient and recheck labs in the morning to see if with positive affect (2) Acute exacerbation of CHF (congestive heart failure) Current Visit: Yes Status: Acute Plan: We will continue to diurese patient keep patient on oxygen monitor respiratory status and edema in lower extremities. Will adjust medications and oxygen if needed. Qualifiers: Heart failure type: diastolic Qualified Code(s): I50.33 - Acute on chronic diastolic (congestive) heart failure (3) Anemia Current Visit: Yes Status: Acute Plan: Hemoglobin has seemed to stabilize and has increased will continue to monitor over the next day (4) COPD (chronic obstructive pulmonary disease) Onset Date: 05/01/18 Current Visit: Yes Status: Acute Plan: Will continue medications and monitor respiratory status. Patient is to be on continuous nasal cannula Qualifiers: COPD type: COPD with acute exacerbation Qualified Code(s): J44.1 - Chronic obstructive pulmonary disease with (acute) exacerbation (5) Dyspnea Onset Date: 05/01/18 Current Visit: Yes Status: Acute (6) Hypertension Current Visit: No Status: Chronic Plan: Blood pressure medicine to be given as scheduled Qualifiers: Hypertension type: essential hypertension Plan to discharge in: 24 Hours <Delroy Cassidy - Last Filed: 05/03/18 10:33> - Plan Case discussed with PA. Agree with above plan Addendum: Anemia of chronic disease : Monitor HH - Code Status/Comfort Care Code Status Assessed: Yes <Marlene Herbert - Last Filed: 05/03/18 14:53>
[2018-05-03] MEDS: FUROSEMIDE 40 MG/4 ML VIAL IV SCH ×2 (12:18→17:55)
[2018-05-03] MEDS: ATORVASTATIN 10 MG TAB PO SCH (22:50)
[2018-05-03] MEDS ORDERED: ALBUMIN HUMAN 25% 100 ML IV ONE (23:51)
[2018-05-03] MEDS ORDERED: DEXAMETHASONE 10 MG/ML VIAL IV ONE (23:53)
[2018-05-04] MEDS ORDERED: DEXAMETHASONE 4 MG/ML VIAL ONE (00:13)
[2018-05-04] MEDS ORDERED: NA CHLORIDE 0.9% 500 ML IV ONE (01:18)
[2018-05-04] MEDS: ALBUTEROL 2.5 MG/3 ML NEB SOL NEB SCH ×4 (02:06→19:46)
[2018-05-04] MEDS: IPRATROPIUM BROM 0.5MG/2.5ML NEB SCH ×4 (02:06→19:46)
[2018-05-04] MEDS ORDERED: FENTANYL CITR 100 MCG/2 ML IV PRN (02:32)
[2018-05-04] MEDS ORDERED: NA CHLORIDE 0.9% 1,000 ML IV SCH (04:00)
--- NOTE | 2018-05-04 05:16 | P.PN ---
Subjective Date of Service: 05/04/18 Patient was hypotensive throughout the day yesterday. Patient continued to give diuretics because of concern for crackles. On review of echocardiogram patient has a normal ejection fraction. No significant evidence of diastolic dysfunction which is normally worsen with elevated blood pressure. I believe patient has been over diuresed and the dehydration resulted in worsening COPD. Patient became more short of breath because of the dehydration. Will go ahead and gently rehydrate the patient and see how she does. Patient's renal function has been deteriorating over the last few days and I believe she will continue to worsen after her low blood pressure and the increased diuresing. We will probably need to treat her for acute tubular necrosis. Review of Systems 10-point ROS is otherwise unremarkable Physical Examination - Vital Signs Temperature: 96.8 F Blood Pressure: 98/61 Pulse: 73 Respirations: 20 Pulse Ox (%): 92 - Physical Exam General: Alert, In no apparent distress, Oriented x3 Respiratory: Diminished, Expiratory wheezes Cardiovascular: Regular rate/rhythm, Normal S1 S2, Systolic murmur Gastrointestinal: Normal bowel sounds, Soft and benign, Non-distended, No tenderness Musculoskeletal: No clubbing, No swelling, No tenderness Integumentary: No rashes Neurological: Normal speech, Normal tone, Sensation intact, Cranial nerves 3-12 intact, Normal affect, Abnormal strength - Studies Medications List Reviewed: Yes Assessment & Plan - Problems (Diagnosis) (1) COPD (chronic obstructive pulmonary disease) Onset Date: 05/01/18 Current Visit: Yes Status: Acute Qualifiers: COPD type: COPD with acute exacerbation Qualified Code(s): J44.1 - Chronic obstructive pulmonary disease with (acute) exacerbation (2) Anemia Current Visit: Yes Status: Acute (3) Dyspnea Onset Date: 05/01/18 Current Visit: Yes Status: Acute (4) Hyperlipidemia Current Visit: No Status: Chronic Qualifiers: Hyperlipidemia type: mixed hyperlipidemia Qualified Code(s): E78.2 - Mixed hyperlipidemia (5) Hypertension Current Visit: No Status: Chronic Qualifiers: Hypertension type: essential hypertension Qualified Code(s): I10 - Essential (primary) hypertension (6) Pulmonary embolism Current Visit: No Status: Chronic Qualifiers: Pulmonary embolism type: other Chronicity: chronic Acute cor pulmonale presence: without acute cor pulmonale Qualified Code(s): I27.82 - Chronic pulmonary embolism (7) JOANA (acute kidney injury) Current Visit: Yes Status: Acute (8) Oliguria Current Visit: Yes Status: Acute (9) Uremic encephalopathy Current Visit: Yes Status: Acute - Plan 1. Gently rehydrate patient. Monitor hemodynamics and oxygenation. 2. Recheck labs in the morning. 3. Repeat chest x-ray 4. Physical therapy evaluation 5. Patient with severe end-stage COPD; pulmonary consultation 6. Monitor oxygenation closely 7. Possibly do an ABG in the morning 8. GI and DVT prophylax - Advance Directives Does patient have a Living Will: No Does patient have a Durable POA for Healthcare: No - Code Status/Comfort Care Code Status: Full Code Critical Care: No Time Spent Managing PTS Care (In Minutes): 50
[2018-05-04 06:49] LABS: Absolute Lymphocytes (CBC) 0.4 K/uL (0.7-4.9); Absolute Monocytes 0.2 K/uL (0.1-1.3); Absolute Neutrophil 4.4 K/uL (1.8-8.0); Basophils % 0.2 % (0-1.3); Eosinophils % 0.2 % (0-4.4); Hematocrit 25.4 % (36.0-45.0); MCH 30.7 pg (27.0-35.0); MCV 90.2 fL (80-100); RBC Red Blood Cell Count 2.81 M/uL (3.86-4.86)
--- NOTE | 2018-05-04 08:14 | RAD REPORT ---
EXAM DESCRIPTION: Ion Single View05/04/2018 1:46 am CLINICAL HISTORY: Shortness of breath COMPARISON: May 01 FINDINGS: No significant change in moderate bilateral pulmonary opacities and small pleural effusion s. The heart remains enlarged. Mild mediastinal lymphadenopathy is stable. IMPRESSION: No change in pulmonary edema
[2018-05-04 08:20] LABS: Albumin 3.4 g/dL (3.4-5.0); Bilirubin Total 0.9 mg/dL (0.2-1.0); Potassium 4.6 mmol/L (3.5-5.1); Protein, Total 6.9 g/dL (6.4-8.2)
[2018-05-04] MEDS: HYDROCODONE/APAP 10/325 TAB PO PRN (08:21)
[2018-05-04 08:51] LABS: CKMB Creatine Kinase MB < 1.0 ng/mL (0.3-3.6); Uric Acid 12.9 mg/dL (2.6-6.0)
[2018-05-04] MEDS: DICYCLOMINE HCL 10 MG CAP PO SCH ×3 (09:00→20:13)
[2018-05-04] MEDS: APIXABAN 5 MG TABLET PO SCH ×2 (09:00→20:13)
[2018-05-04] MEDS: predniSONE 20 MG TAB PO SCH ×2 (09:00→20:13)
[2018-05-04] MEDS: PANTOPRAZOLE 40 MG INJ IVP SCH (09:00)
[2018-05-04] MEDS: clonazePAM 1 MG TAB PO SCH (09:00)
[2018-05-04] MEDS: QUETIAPINE 100MG TAB PO SCH (09:00)
[2018-05-04] MEDS: DULOXETINE 30 MG CAP PO SCH (09:00)
[2018-05-04] MEDS: buPROPion HCl 100 MG TAB PO SCH (09:00)
[2018-05-04 09:29] LABS: Blood Morphology Comment NOT SEEN (NOT SEEN); Platelet Estimate ADEQ
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
[2018-05-04] MEDS: ARFORMOTEROL TARTRATE 15 MCG/2 ML VIAL.NEB NEB SCH ×2 (09:46→19:46)
[2018-05-04] MEDS: NA CHLORIDE 0.9% 1,000 ML IV SCH ×3 (10:00→23:20)
[2018-05-04] MEDS: ROFLUMILAST 500 MCG TABLET PO SCH (10:26)
--- NOTE | 2018-05-04 11:36 | RAD REPORT ---
EXAM DESCRIPTION: US - Renal Ultrasound-Complete - 05/04/2018 11:12 am CLINICAL HISTORY: Acute kidney injury COMPARISON: CT study March 2016 FINDINGS: The right kidney measures 9.5 x 4.9 x 5.4 cm. The left kidney measures 9.5 x 4.6 x 5.7 cm . Renal cortical thickness and echogenicity are normal. No hydronephrosis or suspicious renal mass. Bladder was not adequately visualized for assessment. Incidental note is made of splenomegaly to approximately 15 cm. This is not a full splenic assessment . Spleen was prominent on the 2016 CT study. Gross interval tar heat exchanger cleaner this interval is not suspecte d. IMPRESSION: No hydronephrosis or suspicious renal mass. Mild splenomegaly of an incompletely assessed spleen. Significant size change from 2016 is not suspec regan.
[2018-05-04] MEDS: ATORVASTATIN 10 MG TAB PO SCH (20:13)
[2018-05-04] MEDS ORDERED: FENTANYL CITR 100 MCG/2 ML IV ONE (20:43)
[2018-05-05] MEDS: HYDROCODONE/APAP 10/325 TAB PO PRN ×2 (00:16→09:09)
[2018-05-05] MEDS: ALBUTEROL 2.5 MG/3 ML NEB SOL NEB SCH ×4 (01:56→20:20)
[2018-05-05] MEDS: IPRATROPIUM BROM 0.5MG/2.5ML NEB SCH ×4 (01:56→20:20)
--- NOTE | 2018-05-05 03:18 | CON ---
Date of Consultation: 05/04/2018 Reason For Consultation: Elevated BUN and creatinine, fluid management. History Of Present Illness: This is a 57-year-old female with significant past medical history of CO PD, bronchial asthma, DVT, hyperlipidemia, congestive heart failure, diastolic dysfunction with the p reserved ejection fraction as by echocardiogram done in this admission. Ejection fraction of 68%. T he patient was in her regular state of health, came to the hospital complaining of shortness of breat h. The patient is apparently being treated as CHF exacerbation from her outside application support technician. The p atient denied taking any nonsteroidal, no IV contrast. Her creatinine started trending up. For that reason, we have been consulted. On admission, her creatinine was 1, gradually trending up to 1.3 on the , then 1.9 and 1.7. For that reason, we have been consulted. Past Medical History: 1.COPD. 2.Diastolic congestive heart failure. 3.Coronary artery disease, status post CABG. 4.Hypertension. 5.Hyperlipidemia. 6.DVT. Allergies: TO CHLORPROMAZINE, IBUPROFEN, OXYCODONE, AND TRAMADOL. Home Medications: Include Bentyl, salmeterol, trazodone, aspirin, PPI, estrogen, lisinopril and hydr ochlorothiazide, pravastatin, Wellbutrin, codeine, quetiapine, and trazodone. Family History: Positive for dementia and cancer. Social History: Ex-smoker. Denied alcohol. Denied drug abuse. Review of Systems: Head and Neck: No red eye. No ear pain. GI: No nausea, no vomiting. : No polyuria. No dysuria. No hematuria. DADO OPERATOR: No vaginal discharge. Respiratory: No shortness of breath. Cardiovascular: No leg swelling. Endocrine: No polydipsia. Skin: No rash. Physical Examination: Vital Signs: When I saw the patient, blood pressure of 105/60, pulse of 80, afebrile, reviewing the record around , the patient apparently had low blood pressure down to 90. Chest: Clear to auscultation. Heart: S1, S2. Regular. Abdomen: Soft, nontender. Extremities: No edema. Laboratory Data: Sodium 129, potassium 4.6, bicarb 29, BUN 74, creatinine 1.7, calcium 8.1. Uric ac id 12.9. CK of 1. BNP 41244. Chest x-ray, cardiomegaly. Medications: Current medications the patient on include; 1.Albuterol. 2.Bentyl. 3.Albumin. 4.Eliquis. 5.Clonazepam. 6.Quetiapine. 7.Dexa. 8.Prednisone. 9.Normal saline. Assessment And Plan: 1.Acute kidney injury, normal-sized kidney. 9.5 x 9.5 multiple cysts on the chronic kidney disease secondary to over diuresis. I agree with holding all diuretic and continue gentle IV hydration. We will monitor the patient. 2.Hypertension, currently blood pressure marginal. Hold all blood pressure. Medications especially lisinopril and hydrochlorothiazide. 3.Chronic obstructive pulmonary disease, as by primary. 4.Hyponatremia, depletion. We will continue IV hydration. I will send for urine electrolyte. 5.Chronic obstructive pulmonary disease exacerbation as by primary and Pulmonary. 6.Diastolic dysfunction, coronary artery disease, as by Cardiology, Dr. Herbert, on the dry side. We will monitor. Thank you, Dr. Herbert, for allowing us to participate in the care of your patient. SAIRA Voice ID: [id number] Report ID: [id number]
[2018-05-05 05:20] LABS: Urine Protein/Creatinine Ratio 0.38 ratio (<0.15)
[2018-05-05] MEDS: NA CHLORIDE 0.9% 1,000 ML IV SCH ×3 (05:25→20:19)
[2018-05-05 07:57] LABS: Albumin 3.2 g/dL (3.4-5.0); Phosphorus 2.8 mg/dL (2.5-4.9); Potassium 4.2 mmol/L (3.5-5.1); Thyroid Stimulating Hormone 2.17 uIU/mL (0.36-3.74)
[2018-05-05] MEDS: ARFORMOTEROL TARTRATE 15 MCG/2 ML VIAL.NEB NEB SCH ×2 (08:08→20:19)
[2018-05-05] MEDS: QUETIAPINE 100MG TAB PO SCH (09:00)
[2018-05-05] MEDS: buPROPion HCl 100 MG TAB PO SCH (09:08)
[2018-05-05] MEDS: DICYCLOMINE HCL 10 MG CAP PO SCH ×3 (09:09→20:19)
[2018-05-05] MEDS: ROFLUMILAST 500 MCG TABLET PO SCH (09:09)
[2018-05-05] MEDS: predniSONE 20 MG TAB PO SCH ×2 (09:09→20:19)
[2018-05-05] MEDS: clonazePAM 1 MG TAB PO SCH (09:09)
[2018-05-05] MEDS: APIXABAN 5 MG TABLET PO SCH ×2 (09:09→20:19)
[2018-05-05] MEDS: DULOXETINE 30 MG CAP PO SCH (09:11)
--- NOTE | 2018-05-05 16:45 | P.DS ---
Admission Date: 04/30/18 Discharge Date: 05/05/18 Disposition: ROUTINE DISCHARGE Discharge Condition: FAIR Reason for Admission: Respiratory distress Consultations: nephrology cardiology Pulmonology - Problems (1) COPD (chronic obstructive pulmonary disease) Onset Date: 05/01/18 Current Visit: Yes Status: Acute Qualifiers: COPD type: COPD with acute exacerbation Qualified Code(s): J44.1 - Chronic obstructive pulmonary disease with (acute) exacerbation (2) Acute exacerbation of CHF (congestive heart failure) Current Visit: Yes Status: Chronic Qualifiers: Heart failure type: diastolic Qualified Code(s): I50.33 - Acute on chronic diastolic (congestive) heart failure (3) Hyperlipidemia Current Visit: No Status: Chronic Qualifiers: Hyperlipidemia type: mixed hyperlipidemia Qualified Code(s): E78.2 - Mixed hyperlipidemia (4) Hypertension Current Visit: No Status: Chronic Qualifiers: Hypertension type: essential hypertension Qualified Code(s): I10 - Essential (primary) hypertension (5) Pulmonary embolism Current Visit: No Status: Chronic Qualifiers: Pulmonary embolism type: other Chronicity: chronic Acute cor pulmonale presence: without acute cor pulmonale Qualified Code(s): I27.82 - Chronic pulmonary embolism (6) JOANA (acute kidney injury) Current Visit: Yes Status: Acute Brief History of Present Illness: Patient is a 57-year-old female came to the hospital with shortness of breath. Patient has a longstanding history of COPD and is on 3 L of oxygen at home. She has been getting really short of breath the last couple of days. She denies any swelling in her feet. She does not know her cardiac history although she has been told she has congestive heart failure. Her sales engineer and her wireless engineer are in the [place] area. In the emergency room her workup revealed pulmonary edema in evidence of a CHF exacerbation. Patient was diuresed extensively. She had desatted when I saw her and we gave her another 20 of Lasix IV push. She has put out 1.5 L. Will get an echocardiogram in the morning. She will probably need cardiology consultation as well. Patient will have a BiPAP available. If her respiratory distress worsens she may need to go to the intensive care unit. Hospital Course: During the hospital stay patient remained stable Patient was initially admitted to the hospital for acute respiratory failure most likely secondary to COPD exacerbation was started on BiPAP along with IV steroids and DuoNeb. The patient initially had improvement in her symptoms however continued to be acutely short of breath at exertion. The possibility of acute worsening of her CHF diastolic dysfunction was also explored. The patient had an echocardiogram done here in the hospital which was consistent with diastolic dysfunction. Patient was given 2 doses of IV Lasix. Initially patient had improvement in her symptoms however patient was over diuresed here in the hospital and thus was given gentle hydration due to acute kidney injury. Cardiology pulmonology and nephrology were consulted here in the hospital who agreed with the plan. Patient then had improvement in her symptoms with it resolution of her acute kidney injury. Resolution of her soda this of breath. And thus was discharged under stable condition. Patient COPD is at end-stage requiring 4 L of oxygen at home this stems from patient being noncompliant with her medication and also patient has very advanced COPD. Patient follows up with sales engineer outside and thus was advised to follow up with pulmonology in about 1-2 weeks post discharge. Patient was started on probe on a here in the hospital and the rest here in the hospital and was given prescription for that to go home with as well. Per cardiology patient's CHF was most likely diastolic in function however no new medications were suggested. Patient was to continue taking all her medication as prescribed by her cardiology and was asked to follow up with cardiology in about 1-2 weeks post discharge. Given the fact the patient had acute kidney injury here in the hospital patient was asked to stop taking her lisinopril and hydrochlorothiazide and was asked to monitor her BUN creatinine and follow up with her primary care doctor for restart of those medication. Initially patient was also placed on Eliquis here in the hospital however on discharge was given aspirin per cardiology's recommendations. Again patient was asked to follow up with primary care provider pulmonology cardiology and nephrology on discharge. Initially patient stated that she was homeless as her care providers stated that she cannot return back to her home however on the day of discharge patient stated that she worked it out with her care provider and she can go live with them and the apartment and will be going home with them. Vital Signs/Physical Exam: Temp Pulse Resp BP Pulse Ox 98.0 F 85 17 107/66 92 05/05/18 08:00 05/05/18 08:00 05/05/18 08:00 05/05/18 08:00 05/05/18 08:00 General: Alert, In no apparent distress, Oriented x3, Cachectic HEENT: Atraumatic, PERRLA, EOMI Neck: Supple, JVD not distended Respiratory: Normal air movement, Expiratory wheezes, Inspiratory wheezes Cardiovascular: Regular rate/rhythm, Normal S1 S2 Gastrointestinal: Normal bowel sounds, No tenderness Musculoskeletal: No tenderness Integumentary: No rashes Neurological: Normal speech, Normal tone, Normal affect Lymphatics: No axilla or inguinal lymphadenopathy Laboratory Data at Discharge: WBC 5.0 K/uL (4.3-10.9) D 05/04/18 06:20 Hgb 8.6 g/dL (12.0-15.0) L 05/04/18 06:20 Hct 25.4 % (36.0-45.0) L 05/04/18 06:20 Plt Count 163 K/uL (152-406) 05/04/18 06:20 PT 19.4 SECONDS (9.5-12.5) H 04/30/18 17:31 INR 1.64 04/30/18 17:31 APTT 33.3 SECONDS (24.3-36.9) 04/30/18 17:31 Sodium 134 mmol/L (136-145) L 05/05/18 05:58 Potassium 4.2 mmol/L (3.5-5.1) 05/05/18 05:58 BUN 53 mg/dL (7-18) H D 05/05/18 05:58 Creatinine 1.20 mg/dL (0.55-1.3) 05/05/18 05:58 Glucose 150 mg/dL (74-106) H 05/05/18 05:58 Uric Acid 12.9 mg/dL (2.6-6.0) H 05/04/18 07:33 Phosphorus 2.8 mg/dL (2.5-4.9) 05/05/18 05:58 Magnesium 1.9 mg/dL (1.8-2.4) 04/30/18 17:31 Total Bilirubin 0.9 mg/dL (0.2-1.0) 05/04/18 07:33 AST 17 U/L (15-37) 05/04/18 07:33 ALT 20 U/L (12-78) 07/20/18 07:33 Alkaline Phosphatase 102 U/L (45-117) 05/04/18 07:33 Home Medications: Dicyclomine [Bentyl*] 10 mg PO TID 02/24/16 Fluticasone/Salmeterol [Advair 250/50 Diskus*] 1 puff IH BID 02/24/16 Trazodone [Desyrel*] 50 mg PO TID 02/24/16 Duloxetine HCl [Cymbalta] 60 mg PO DAILY 02/25/16 Esomeprazole Mag Trihydrate [Nexium] 1 cap PO BID 04/30/18 Pravastatin Sodium 1 tab PO DAILY 04/30/18 Promethazine HCl 1 tab PO DAILY 04/30/18 buPROPion HCl [Wellbutrin*] 300 tab PO DAILY 04/30/18 clonazePAM [Klonopin] 1 tab PO DAILY 04/30/18 Codeine/APAP [Tylenol #3*] 2 tab PO Q6HP PRN 05/01/18 Quetiapine Fumarate [Seroquel] 1 tab PO DAILY 05/01/18 Arformoterol Tartrate [Brovana] 15 mcg NEB BIDRESP #1 vial.neb 05/05/18 Roflumilast [Daliresp*] 250 mcg PO DAILY #30 tablet 05/05/18 predniSONE [Prednisone*] 20 mg PO BID #30 tab 05/05/18 New Medications: Arformoterol Tartrate [Brovana] 15 mcg NEB BIDRESP #1 vial.neb predniSONE [Prednisone*] 20 mg PO BID #30 tab Roflumilast [Daliresp*] 250 mcg PO DAILY #30 tablet Diet: Regular Activity: Ad wilian Followup: Marciano Mckeon MD [ACTIVE - CAN ADMIT] - 1 Week Avinash Echevarria MD [ACTIVE - CAN ADMIT] - 1 Week Lennox Garcia MD [ACTIVE - CAN ADMIT] - 1 Week
--- NOTE | 2018-05-05 17:19 | P.PN ---
Patient was not able to be discharged home today. When the nurse went in to get the paperwork to the new patient patient stated that she no longer has a place to go to again her carefree care provider stated that she she cannot go back to them and is currently homeless as she does not have any place to go to. Patient also gargle short of breath and worked up after the news where her oxygenation dropped and thus was held today and will not be discharged. Will re -evaluate the patient in the morning. Patient was educated extensively on the disease process and was asked to do some relaxation techniques to help with her anxiety. Patient demonstrated understanding and will see the patient in the morning again.
[2018-05-05] MEDS: ATORVASTATIN 10 MG TAB PO SCH (20:19)
--- NOTE | 2018-05-05 21:49 | PN ---
Date of Progress Note: 05/05/2018 Subjective: The patient doing well. Still complaining of pain all over, poorly responds to pain med ication. Physical Examination: Vital Signs: When I saw the patient, blood pressure of 138/64, pulse of 92. Chest: Clear to auscultation. Heart: S1, S2. Regular. Systolic murmur. Abdomen: Soft, nontender. Extremity: No edema. Laboratory Data: WBC 5, H and H 8.6/25.4, platelet 163. Sodium 134, potassium 4.2, bicarb 29, BUN 5 3, creatinine 1.2, uric acid 12.9, calcium of 8, phosphor 2.8. Albumin 3.2. Medications: Current medications the patient on include breathing treatment, doxycycline, albumin, E liquis, atorvastatin, bupropion, quetiapine, prednisone 20 b.i.d., IV fluid at 75 per hour, hydrocodo ne. Assessment And Plan: 1.Acute kidney injury secondary to prerenal, recovered, back to baseline, looked to me start to bein g euvolemic. I am going to go ahead and discontinue IV fluid and we will monitor the patient. 2.Hypertension, controlled, optimal. Continue current medication. 3.Chronic obstructive pulmonary disease exacerbation as by Pulmonary. 4.Congestive heart failure. Euvolemic currently. Keep holding diuresis. Hold IV fluid. We will m onitor. SAIRA Voice ID: [id number] Report ID: [id number]
[2018-05-06] MEDS: HYDROCODONE/APAP 10/325 TAB PO PRN ×4 (00:23→18:26)
[2018-05-06] MEDS: ALBUTEROL 2.5 MG/3 ML NEB SOL NEB SCH ×4 (01:34→20:50)
[2018-05-06] MEDS: IPRATROPIUM BROM 0.5MG/2.5ML NEB SCH ×4 (01:34→20:50)
[2018-05-06 05:18] LABS: Albumin 3.2 g/dL (3.4-5.0); Phosphorus 2.2 mg/dL (2.5-4.9); Potassium 4.6 mmol/L (3.5-5.1)
[2018-05-06] MEDS: ARFORMOTEROL TARTRATE 15 MCG/2 ML VIAL.NEB NEB SCH ×2 (08:13→20:50)
[2018-05-06] MEDS: buPROPion HCl 100 MG TAB PO SCH (08:48)
[2018-05-06] MEDS: DULOXETINE 30 MG CAP PO SCH (08:52)
[2018-05-06] MEDS: DICYCLOMINE HCL 10 MG CAP PO SCH ×3 (08:52→21:40)
[2018-05-06] MEDS: predniSONE 20 MG TAB PO SCH ×2 (08:53→21:40)
[2018-05-06] MEDS: QUETIAPINE 100MG TAB PO SCH (08:53)
[2018-05-06] MEDS: ROFLUMILAST 500 MCG TABLET PO SCH (08:54)
[2018-05-06] MEDS: APIXABAN 5 MG TABLET PO SCH ×2 (08:55→21:40)
[2018-05-06] MEDS: clonazePAM 1 MG TAB PO SCH (08:55)
[2018-05-06] MEDS ORDERED: FUROSEMIDE 40 MG/4 ML VIAL IV ONE (10:15)
--- NOTE | 2018-05-06 12:10 | P.PN ---
Subjective Date of Service: 05/06/18 Chief Complaint: Respiratory distress Pt seen and examined at bedside with RN. Chart reviewed. pt was lethargic this AM. there was purse fallen over on the floor in the room with 2 bottles of prescription drugs falled out. One was tylenol # 3 and another tizanidine. Patient at this time denies taking many medication however does seem to be more drowsy this morning. Has been refusing to keep the BiPAP on. Patient was educated extensively on not taking any medications from home. Medication bottles were taken to the nurse's station for safe keep. Patient was asked to continue to use the BiPAP while asleep year in the hospital. Review of Systems General: As per HPI Physical Examination - Vital Signs Temperature: 97.6 F Blood Pressure: 136/68 Pulse: 92 Respirations: 20 Pulse Ox (%): 95 - Physical Exam General: In no apparent distress, Other (Lethargic) HEENT: Atraumatic, PERRLA, EOMI Neck: Supple, JVD not distended Respiratory: Clear to auscultation bilaterally, Normal air movement Cardiovascular: Regular rate/rhythm, Normal S1 S2 Gastrointestinal: Normal bowel sounds, No tenderness Musculoskeletal: No tenderness Integumentary: No rashes Neurological: Normal speech, Normal tone, Normal affect Lymphatics: No axilla or inguinal lymphadenopathy - Studies Medications List Reviewed: Yes Assessment & Plan - Problems (Diagnosis) (1) JOANA (acute kidney injury) Current Visit: Yes Status: Acute Plan: Improved now after stopping Lasix. (2) COPD (chronic obstructive pulmonary disease) Onset Date: 05/01/18 Current Visit: Yes Status: Acute Plan: COPD with acute Exacerbation. Mild Improvement -Duonebs, Steroids and BIPAP for now Qualifiers: COPD type: COPD with acute exacerbation Qualified Code(s): J44.1 - Chronic obstructive pulmonary disease with (acute) exacerbation (3) Acute exacerbation of CHF (congestive heart failure) Current Visit: Yes Status: Chronic Plan: Acute Exacerbation of CHF -cardiology consulted. Appreciated Reccs -ECHO with EF of 68%, but dilated atrium -Restart home medication - BB, CCB and HCTZ -Stopped Lasix due to increase in BUN/CR Qualifiers: Heart failure type: diastolic Qualified Code(s): I50.33 - Acute on chronic diastolic (congestive) heart failure (4) Hyperlipidemia Current Visit: No Status: Chronic Qualifiers: Hyperlipidemia type: mixed hyperlipidemia Qualified Code(s): E78.2 - Mixed hyperlipidemia (5) Hypertension Current Visit: No Status: Chronic Qualifiers: Hypertension type: essential hypertension Qualified Code(s): I10 - Essential (primary) hypertension (6) Pulmonary embolism Current Visit: No Status: Chronic Qualifiers: Pulmonary embolism type: other Chronicity: chronic Acute cor pulmonale presence: without acute cor pulmonale Qualified Code(s): I27.82 - Chronic pulmonary embolism (7) Homeless Current Visit: Yes Status: Acute Plan: Patient states that now she is homeless and has no place to go. Currently nonambulatory due to being lethargic today. Physical therapy has been consulted will ask physical therapy to work with the patient. SNF referral has been in place. Patient will be going to retirement facility if accepted for further rehab. Patient was also asked to look into shelter placement once discharged from retirement facility. Discharge Plan: Other Plan to discharge in: 48 Hours - Code Status/Comfort Care Code Status Assessed: Yes Critical Care: No
[2018-05-06 13:15] LABS: Blood Gas Oxyhemoglobin 96.5 % (94-97); Blood O2 Saturation 99.8 % (92-98.5)
--- NOTE | 2018-05-06 16:26 | PN ---
Date of Progress Note: 05/06/2018 Subjective: Refused her CPAP, sleepy today. Physical Examination: Vital Signs: Blood pressure of 136/68, pulse of 92, afebrile. Chest: Slight crackles on the base. Heart: S1, S2. No murmur. Abdomen: Soft. Nontender. Extremity: No edema. Laboratory Data: H and H 8.6/25.4, WBC of 5, sodium 138, potassium 4.6, bicarb 30, BUN 34, creatinin e down to 0.9, calcium 8.2, phosphorus 2.2, GFR of 64 normalized, albumin 3.2. The patient do not weinstein ve measurement of her urine output. Medications: Current medications, the patient on include: 1.Atorvastatin. 2.Eliquis. 3.Bentyl. 4.Bupropion. 5.Clonazepam. 6.Breathing treatment. 7.Prednisone 20 b.i.d. Assessment And Plan: 1.Acute kidney injury secondary to prerenal, recovered, resolved. 2.Keep holding IV fluid. 3.Hypertension, controlled, optimal. Continue current medication. 4.Chronic obstructive pulmonary disease exacerbation. The patient on multiple sedation medication. Eyes look sleepy. Follow up with Pulmonary and Primary. 5.Congestive heart failure. Stable. Normal volume. Keep holding IV fluid. I am going to give the patient a single dose of Lasix to establish better volume control. SAIRA Voice ID: [id number] Report ID: [id number]
[2018-05-06] MEDS: ATORVASTATIN 10 MG TAB PO SCH (21:40)
[2018-05-07] MEDS: IPRATROPIUM BROM 0.5MG/2.5ML NEB SCH ×3 (01:25→14:00)
[2018-05-07] MEDS: ALBUTEROL 2.5 MG/3 ML NEB SOL NEB SCH ×3 (01:25→14:00)
[2018-05-07] MEDS: HYDROCODONE/APAP 10/325 TAB PO PRN ×3 (03:22→16:10)
[2018-05-07 05:35] LABS: Albumin 3.1 g/dL (3.4-5.0); Potassium 4.6 mmol/L (3.5-5.1)
[2018-05-07] MEDS: ARFORMOTEROL TARTRATE 15 MCG/2 ML VIAL.NEB NEB SCH (08:00)
[2018-05-07] MEDS: APIXABAN 5 MG TABLET PO SCH (08:14)
[2018-05-07] MEDS: buPROPion HCl 100 MG TAB PO SCH (08:14)
[2018-05-07] MEDS: DULOXETINE 30 MG CAP PO SCH (08:15)
[2018-05-07] MEDS: predniSONE 20 MG TAB PO SCH (08:15)
[2018-05-07] MEDS: QUETIAPINE 100MG TAB PO SCH (08:15)
[2018-05-07] MEDS: DICYCLOMINE HCL 10 MG CAP PO SCH ×2 (08:15→16:10)
[2018-05-07] MEDS: clonazePAM 1 MG TAB PO SCH (08:22)
[2018-05-07] MEDS: ROFLUMILAST 500 MCG TABLET PO SCH (08:50)
--- NOTE | 2018-05-07 13:12 | P.PN ---
Subjective Date of Service: 05/07/18 Chief Complaint: Respiratory distress Aviles seen and examined at bedside with RN. Chart reviewed. Currently patient excepting to go to inpatient [facility] with [facility]. [facility] contacted and agreed with the plan and patient was transferred to the [facility] to get hospice care there. Review of Systems General: As per HPI Physical Examination - Vital Signs Temperature: 98.1 F Blood Pressure: 144/71 Pulse: 97 Respirations: 20 Pulse Ox (%): 95 - Physical Exam General: Alert, In no apparent distress HEENT: Atraumatic, PERRLA, EOMI Neck: Supple, JVD not distended Respiratory: Clear to auscultation bilaterally, Normal air movement Cardiovascular: Regular rate/rhythm, Normal S1 S2 Gastrointestinal: Normal bowel sounds, No tenderness Musculoskeletal: No tenderness Integumentary: No rashes Neurological: Normal speech, Normal tone, Normal affect Lymphatics: No axilla or inguinal lymphadenopathy - Studies Medications List Reviewed: Yes Assessment & Plan - Problems (Diagnosis) (1) JOANA (acute kidney injury) Current Visit: Yes Status: Acute Plan: Improved now after stopping Lasix. (2) COPD (chronic obstructive pulmonary disease) Onset Date: 05/01/18 Current Visit: Yes Status: Acute Plan: COPD with acute Exacerbation. Improvement Qualifiers: COPD type: COPD with acute exacerbation Qualified Code(s): J44.1 - Chronic obstructive pulmonary disease with (acute) exacerbation (3) Acute exacerbation of CHF (congestive heart failure) Current Visit: Yes Status: Chronic Plan: Acute Exacerbation of CHF -cardiology consulted. Appreciated Reccs -ECHO with EF of 68%, but dilated atrium -Restart home medication - BB, CCB and HCTZ -Stopped Lasix due to increase in BUN/CR Qualifiers: Heart failure type: diastolic Qualified Code(s): I50.33 - Acute on chronic diastolic (congestive) heart failure (4) Hyperlipidemia Current Visit: No Status: Chronic Qualifiers: Hyperlipidemia type: mixed hyperlipidemia Qualified Code(s): E78.2 - Mixed hyperlipidemia (5) Hypertension Current Visit: No Status: Chronic Qualifiers: Hypertension type: essential hypertension Qualified Code(s): I10 - Essential (primary) hypertension (6) Pulmonary embolism Current Visit: No Status: Chronic Qualifiers: Pulmonary embolism type: other Chronicity: chronic Acute cor pulmonale presence: without acute cor pulmonale Qualified Code(s): I27.82 - Chronic pulmonary embolism (7) Homeless Current Visit: Yes Status: Acute Plan: Patient states that now she is homeless and has no place to go. Discharge Plan: Snf Plan to discharge in: 24 Hours - Code Status/Comfort Care Code Status Assessed: Yes Critical Care: No
[2018-05-07] MEDS: ONDANSETRON 4 MG/2 ML VIAL IV PRN (16:13)
--- NOTE | 2018-05-07 23:11 | PN ---
Date of Progress Note: 05/07/2018 Chief Complaint: Acute kidney injury. History Of Present Illness: 1.Acute kidney injury in recovery phase. The patient was found to have shortness of breath. She wa s treated with the CPAP. The patient developed acute kidney injury secondary to prerenal azotemia. Renal function has improved. The patient responded to IV fluids. 2.Hypertension. Blood pressure is controlled. Review of Systems: Denies fever or chills. Objective: Lungs: Clear to auscultation bilaterally. Heart: S1, S2. Abdomen: Soft, benign. Extremities: No edema. Laboratory Data: BUN 34, creatinine 0.9, calcium 8.2, phosphorus 2.2, albumin 3.2. Impression And Plan: 1.Acute kidney injury, secondary to prerenal azotemia, resolved. The patient responded to IV fluids . 2.Hypertension. Blood pressure controlled. Continue current treatment. 3.Chronic obstructive pulmonary disease with exacerbation. The patient was on CPAP. [facility] the [facility]. 4.Congestive heart failure, chronic, with diastolic dysfunction. Continue Lasix, low-sodium diet. EB/MODL Voice ID: [id number] Report ID: [id number]
== END 2018-05-07 17:58 | disposition hospice, inpatient (51) | DRG 291 ==
LOC: ER 17:13 → ERHOLD 18:05 → 2ND 19:58
PROVIDERS: ADMIT Family Medicine; ATTEND Family Medicine
PROC: 5A09557 Assistance with Respiratory Ventilation, Greater than 96 Consecutive Hours, Continuous Positive Airway Pressure (ICD-10-PCS; principal; 2018-05-01)
DX: I13.0 Hypertensive heart and chronic kidney disease with heart failure and stage 1 through stage 4 chronic kidney disease, or unspecified chronic kidney disease (principal); G93.41 Metabolic encephalopathy; I50.33 Acute on chronic diastolic (congestive) heart failure; J96.00 Acute respiratory failure, unspecified whether with hypoxia or hypercapnia; J44.1 Chronic obstructive pulmonary disease with (acute) exacerbation; E87.1 Hypo-osmolality and hyponatremia; N17.9 Acute kidney failure, unspecified; D64.9 Anemia, unspecified; E78.5 Hyperlipidemia, unspecified; I48.91 Unspecified atrial fibrillation; N18.9 Chronic kidney disease, unspecified; E86.0 Dehydration; I95.9 Hypotension, unspecified; I25.10 Atherosclerotic heart disease of native coronary artery without angina pectoris; Z66 Do not resuscitate; Z51.5 Encounter for palliative care; Z87.891 Personal history of nicotine dependence; Z86.711 Personal history of pulmonary embolism; Z86.718 Personal history of other venous thrombosis and embolism; Z79.01 Long term (current) use of anticoagulants; Z99.81 Dependence on supplemental oxygen; Z79.82 Long term (current) use of aspirin; Z88.6 Allergy status to analgesic agent; Z88.5 Allergy status to narcotic agent; Z88.8 Allergy status to other drugs, medicaments and biological substances; Z95.1 Presence of aortocoronary bypass graft; Z91.14 Patient's other noncompliance with medication regimen; Z59.0 Homelessness
CPT/HCPCS: 36415; 51702; 71045; 71250; 76770; 80048; 80053; 80069; 80076; 81003; 82550; 82553; 82570; 82805; 83735; 83880; 84132; 84156; 84300; 84443; 84484; 84550; 85014; 85018; 85025; 85610; 85730; 86850; 86900; 86901; 87040; 93005; 93306; 94640; 94660; 96365; 96366; 96374; 96375; 97163; 99285; C9113; J1100; J1940; J2175; J2405; J2920; J2930; J3010; J3475; J7030; J7512; J7605; P9016; P9047